=== PATIENT | male | born 1945 | race Caucasian/White ===

== ENCOUNTER 2017-04-21 15:38 | Inpatient (IN) | payer MEDICARE ==
[~2017-04-21] VITALS: Ht 175.3 cm; Wt 69.9 kg
[2017-04-21] VITALS (7 sets, daily range): BP systolic 119–156; BP diastolic 90–98
[~2017-04-21 15:38] MED LIST: AMIO200T2 PO; ASPI-482 PO; CARV6.252 PO; CITA10TA4 PO; FURO-68 PO; FURO40TA4 PO; LEVE500T6 PO; LISI-334 PO; LISI10TA2 PO; MULT1TAB52 PO; SIMV20TA3 PO; SIMV40TA3 PO
[2017-04-21] MEDS ORDERED: IV NORMAL SALINE 1000ML BAG 1,000 ML IV ONE (15:45)
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
[2017-04-21 16:00] LABS: BASO # 0.1 x10^3/uL (0.0-0.2); BASO % 1 % (0-3); EOS % 2 % (0-3); HEMATOCRIT 34.3 % (39.0-53.0); HEMOGLOBIN 11.8 g/dL (13.0-17.5); LYMPH # 1.4 x10^3/uL (1.0-4.8); LYMPH % 18 % (24-48); MEAN CORPUSCULAR HEMOGLOBIN 33 pg (25-35); MEAN CORPUSCULAR HGB CONC 35 g/dL (31-37); MEAN CORPUSCULAR VOLUME 96 fL (79-100); MONO % 7 % (0-9); NEUT % 72 % (31-73); PLATELET COUNT 201 x10^3/uL (140-400); RED BLOOD COUNT 3.56 x10^6/uL (4.30-5.70); RED CELL DISTRIBUTION WIDTH 12.5 % (11.5-14.5); WHITE BLOOD COUNT 7.6 x10^3/uL (4.0-11.0)
[2017-04-21 16:08] LABS: CALCIUM 9.8 mg/dL (8.5-10.1); CREATININE 1.2 mg/dL (0.7-1.3); POTASSIUM 5.2 mmol/L (3.5-5.1)
[2017-04-21 16:14] LABS: ALBUMIN 3.7 g/dL (3.4-5.0); ALBUMIN/GLOBULIN RATIO 0.9 (1.0-1.7); TOTAL BILIRUBIN 0.7 mg/dL (0.2-1.0); TOTAL PROTEIN 7.6 g/dL (6.4-8.2)
[2017-04-21 16:15] LABS: PROTHROMBIN TIME PATIENT 12.2 SEC (11.7-14.0)
[2017-04-21] MEDS ORDERED: IOHEXOL 300 MG/ML 75 ML VIAL IV ONE (16:15)
[2017-04-21] MEDS ORDERED: CONTRAST GIVEN MC PRN (16:30)
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
--- NOTE | 2017-04-21 16:51 | EKG ---
[facility] [address] [place] [address] Test Date: 2017-04-21 Test Time: 16:39:14 Pat Name: BARON GONZALEZ Department: Room: Gender: M Hypertrichologist: : 1945 Requested By: SKYLA SUE Order Number: [id number] Reading MD: Ovidio Sood Measurements Intervals Pease Rate: 61 P: 90 WV: 206 QRS: -55 QRSD: 88 T: 7 QT: 410 QTc: 418 Interpretive Statements SUSPECT ATRIAL PACED RHYTHM Electronically Signed On 04-22-2017 9:30:39 CDT by Ovidio Sood
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
[2017-04-21] MEDS ORDERED: MORPHINE SULFATE 4 MG/ML DISP.SYRIN. IV PRN (17:15)
[2017-04-21] MEDS ORDERED: ONDANSETRON PF 4 MG/2 ML VIAL. IV PRN (17:15)
[2017-04-21 17:24] LABS: BARBITURATES NEG (NEG); BENZODIAZEPINES NEG (NEG); CANNABINOIDS NEG (NEG); COCAINE NEG (NEG); METHADONE NEG (NEG); OPIATES NEG (NEG); PHENCYCLIDINE NEG (NEG)
[2017-04-21] MEDS ORDERED: IV NORMAL SALINE 1000ML BAG 1,000 ML IV SCH (17:30)
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
[2017-04-22] VITALS (12 sets, daily range): BP systolic 87–127; BP diastolic 59–93
--- NOTE | 2017-04-22 03:44 | ACF ---
Admission Forms Criteria SEIZURE ( Place 'X' for any and all applicable criteria): Admission is indicated for seizure and 1 or more of the following (1)(2)(3)(4)( 5)(6) [ ]I. Inpatient admission required rather than observation care (Also use Seizure: Observation Care Criteria as appropriate) because of 1 or more of the following: [ ]1) Altered mental status that is severe or persistent [ ]2) New focal neurologic deficit that is severe or persistent [ ]3) Metabolic disorder (eg, hypoglycemia, hyponatremia) that is severe or persistent [ ]4) Recurrent seizure [ ]5) Outpatient antiseizure regimen cannot be established (eg , patient cannot tolerate medication, initiation requires inpatient care) [ ]6) Need for ongoing intravenous infusion of anti-seizure medication [ ]7) Cerebral bleeding, hydrocephalus, or vasospasm monitoring [ ]8) Increased intracranial pressure or cerebral edema monitoring [ ]9) Other conditions, treatment or monitoring requiring inpatient admission [X]II. Status epilepticus [A] or repetitive seizures not controlled with emergent treatment (6)(8) [ ]III. Brain disorder (eg, tumor, edema, and hydrocephalus) that requiring monitoring or intervention available only at inpatient level of care. [ ]IV. Brain insult (eg, severe trauma, stroke, drug toxicity, or withdrawal) that requires monitoring or intervention available only at inpatient level of care (10)(11) [ ]V. Cardiac arrhythmias of immediate concern Extended stay beyond goal length of stay may be needed for (22) [ ]a) Complications of status epilepticus [ ]b) Refractory status epilepticus [ ]c) Etiology-specific therapy for conditions such as RESIDENTIAL PEST CONTROL TECHNICIAN infection, head injury,eclampsia, severe metabolic abnormalities, and brain tumor [ ]d) Residual neurologic damage, [ ]e) Initiation of significant change to anticonvulsant treatment [ ]f) Older patients (65 years or older) [ ]g) Patient requiring intubation (eg, to protect airway) The original [employer] content created by [employer] has been revised. The portions of the content which have been revised are identified through the use of italic text, and [email or web address] has neither reviewed nor approved the modified material. All other unmodified content is copyright [employer]. Please see references footnoted in the original [employer] edition 2015 Admission Criteria Met?: Yes WOLF WADE Apr 22, 2017 03:44
[2017-04-22 08:27] LABS: CALCIUM 8.7 mg/dL (8.5-10.1); CREATININE 1.1 mg/dL (0.7-1.3); GFR 66.4; POTASSIUM 3.9 mmol/L (3.5-5.1)
[2017-04-22 08:42] LABS: BASO % 0 % (0-3); EOS % 2 % (0-3); HEMOGLOBIN 10.1 g/dL (13.0-17.5); LYMPH # 1.2 x10^3/uL (1.0-4.8); LYMPH % 18 % (24-48); MEAN CORPUSCULAR HEMOGLOBIN 34 pg (25-35); MEAN CORPUSCULAR HGB CONC 35 g/dL (31-37); MEAN CORPUSCULAR VOLUME 97 fL (79-100); MONO % 10 % (0-9); NEUT % 70 % (31-73); PLATELET COUNT 167 x10^3/uL (140-400); RED BLOOD COUNT 2.99 x10^6/uL (4.30-5.70); RED CELL DISTRIBUTION WIDTH 12.6 % (11.5-14.5); WHITE BLOOD COUNT 6.6 x10^3/uL (4.0-11.0)
--- NOTE | 2017-04-22 12:35 | EEG ---
DATE OF SERVICE: 04/22/2017 EEG NUMBER: [id number] OBJECTIVE: This is a 71-year-old male patient with history of seizure. EEG was requested to evaluate seizure activity. METHODS: Twenty electrodes were applied according to the international 10-20 electrode placement system. EKG monitoring, hyperventilation, intermittent photic stimulation, monopolar and bipolar montages are routinely utilized. The record was obtained on a digital system with video monitoring. MEDICATIONS: Keppra. FINDINGS: 1. Background: The patient was recorded in the decreased response state. The overall background amplitude is 5-10 microvolts. No clear well-organized posterior dominant rhythm is observed. The overall background rhythm is with faster activity in beta frequency. Muscle artifact also noted. 2. Abnormalities: No specific epileptiform discharge or electrographic seizure is seen. Muscle artifact noted throughout the entire recording. 3. Activation: Hyperventilation was not performed because the patient was unable to follow the commands. Intermittent photic stimulation was performed with photic driving. No specific epileptiform discharge or electrographic seizure induced by intermittent photic driving. IMPRESSION: This EEG falls into the abnormal category of the study for the decreased response state. The faster activity in beta frequency is throughout the entire recording. Artifact also noted. No focal, lateralizing, specific epileptiform discharge or electrographic seizure is seen. PITO SUMNER MD DR: DENISSE/pat JOB#: [id number] / [id number] JAELYN
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
[2017-04-22 13:48] LABS: POTASSIUM ISTAT 5.1 mmol/L (3.5-5.0)
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
== END 2017-04-22 14:30 | disposition home or self-care (01) | DRG 101 ==
LOC: ER 15:38 → 1 WEST ICU 17:14
PROVIDERS: ADMIT Internal Medicine; ATTEND Internal Medicine
DX: G40.211 Localization-related (focal) (partial) symptomatic epilepsy and epileptic syndromes with complex partial seizures, intractable, with status epilepticus (principal); I42.9 Cardiomyopathy, unspecified; I10 Essential (primary) hypertension; E78.5 Hyperlipidemia, unspecified; E78.00 Pure hypercholesterolemia, unspecified; H51.8 Other specified disorders of binocular movement; I25.10 Atherosclerotic heart disease of native coronary artery without angina pectoris; Z90.49 Acquired absence of other specified parts of digestive tract; Z83.3 Family history of diabetes mellitus; Z95.0 Presence of cardiac pacemaker
CPT/HCPCS: 36415; 70450; 71010; 72125; 74177; 80047; 80048; 80053; 80307; 84484; 85025; 85610; 87641; 93005; 95816; 96361; 96365; 96375; 96376; G0480; J1953; J2060; J7030; 99291-25; G0479

== ENCOUNTER 2018-06-08 08:26 | Inpatient (IN) | payer MEDICARE ==
[2018-06-08] VITALS (24 sets, daily range): BP systolic 90–127; BP diastolic 50–86
[~2018-06-08] VITALS: Ht 175.3 cm; Wt 71.3 kg
[~2018-06-08 08:26] MED LIST changes: -AMIO200T2 PO; +AMIO200T4 PO; +ATOR20TA58 PO; +DONE10TA61 PO; +SERT25TA PO; +SPIR25TA5 PO
[2018-06-08] MEDS ORDERED: IV NORMAL SALINE 1000ML BAG 1,000 ML IV ONE ×2 (08:45)
[2018-06-08] MEDS ORDERED: PROPOFOL 10 MG/ML (20ML) VIAL. IV ONE (08:45)
[2018-06-08] MEDS ORDERED: SUCCINYLCHOLINE 200 MG/10 ML VIAL. IV ONE (08:45)
[2018-06-08] MEDS ORDERED: ETOMIDATE 20 MG/10 ML VIAL. IV ONE (08:45)
[2018-06-08] MEDS ORDERED: PROPOFOL 50 ML IV ONE (08:49)
[2018-06-08 08:59] LABS: BASO % 1 % (0-3); EOS # 0.1 x10^3/uL (0.0-0.7); EOS % 1 % (0-3); HEMATOCRIT 42.2 % (39.0-53.0); HEMOGLOBIN 14.6 g/dL (13.0-17.5); LYMPH # 1.4 x10^3/uL (1.0-4.8); LYMPH % 17 % (24-48); MEAN CORPUSCULAR HEMOGLOBIN 34 pg (25-35); MEAN CORPUSCULAR HGB CONC 35 g/dL (31-37); MEAN CORPUSCULAR VOLUME 98 fL (79-100); MONO # 0.5 x10^3/uL (0.0-1.1); MONO % 7 % (0-9); NEUT % 75 % (31-73); PLATELET COUNT 251 x10^3/uL (140-400); RED CELL DISTRIBUTION WIDTH 13.4 % (11.5-14.5)
[2018-06-08] MEDS ORDERED: MIDAZOLAM HCL/PF 5 MG/5 ML VIAL. IV ONE (09:00)
[2018-06-08 09:01] LABS: BILIRUBIN,URINE NEGATIVE (NEG); CLARITY,URINE CLOUDY; COLOR,URINE YELLOW; NITRITE,URINE NEGATIVE (NEG); PROTEIN,URINE 100 mg/dL (NEG-TRACE)
[2018-06-08 09:07] LABS: PROTHROMBIN TIME PATIENT 13.3 SEC (11.7-14.0)
[2018-06-08 09:11] LABS: BACTERIA,URINE 0 /HPF (0-FEW); RBC,URINE 0 /HPF (0-2); WBC,URINE 0 /HPF (0-4)
--- NOTE | 2018-06-08 09:16 | RAD ---
EXAM: Chest, single view. HISTORY: Intubation COMPARISON: 04/21/2017 FINDINGS: A frontal view of the chest is obtained. There is an endotracheal tube within the mid trachea. There is a nasogastric tube within the stomach. There is a cardiac pacemaker with leads in expected position. There is no pneumothorax or pleural effusion. The heart is normal in size. There is focal opacity overlying the right upper lobe likely due to overlying osseous and pulmonary vascular shadows. IMPRESSION: 1. Support lines and tubes in expected position, described above. 2. No acute pulmonary finding. Electronically signed by: Tiana Ibrahim MD (06/08/2018 9:14 AM) [place] [id number]
[2018-06-08 09:21] LABS: BASE EXCESS ABG -6 mmol/L (-3-3); HCO3 ABG 19 mmol/L (21-28); PCO2 ABG 37 mmHg (35-46); PO2 ABG 418 mmHg (65-108); SAT O2 ABG 99 % (92-99)
[2018-06-08 09:24] LABS: GFR 33.2; POTASSIUM 4.5 mmol/L (3.5-5.1)
[2018-06-08 09:25] LABS: FIO2 ABG 80
[2018-06-08 09:28] LABS: AMPHETAMINE/METHAMPHETAMINE NEG (NEG); BARBITURATES NEG (NEG); BENZODIAZEPINES NEG (NEG); CANNABINOIDS NEG (NEG); COCAINE NEG (NEG); METHADONE NEG (NEG); OPIATES NEG (NEG); PHENCYCLIDINE NEG (NEG)
[2018-06-08] MEDS ORDERED: NORMAL SALINE IV ONE (09:30)
[2018-06-08] MEDS ORDERED: FOSPHENYTOIN IV ONE (09:30)
[2018-06-08 09:32] LABS: ALBUMIN 3.9 g/dL (3.4-5.0); ALBUMIN/GLOBULIN RATIO 0.9 (1.0-1.7); TOTAL BILIRUBIN 1.1 mg/dL (0.2-1.0); TOTAL PROTEIN 8.1 g/dL (6.4-8.2)
--- NOTE | 2018-06-08 09:41 | EKG ---
[facility] [address] [place] [address] Test Date: 2018-06-08 Test Time: 09:12:15 Pat Name: BARON GONZALEZ Department: Room: Gender: M Customer Engineer: : [id number] Requested By: AYLIN CHRISTINA Order Number: [id number] Reading MD: Ovidio Sood MD Measurements Intervals [place] Rate: 87 P: 67 MD: 182 QRS: -57 QRSD: 104 T: -156 QT: 416 QTc: 501 Interpretive Statements PROBABLE SR LVH PAC'S BASELINE ARTIFACT Electronically Signed On 06-08-2018 15:25:00 CDT by Ovidio Sood MD
--- NOTE | 2018-06-08 09:59 | RAD ---
EXAM: Head CT without contrast. HISTORY: Seizure. Altered mental status. TECHNIQUE: Computed tomographic images of the head were obtained without contrast. *One or more of the following individualized dose reduction techniques were utilized for this examination: 1. Automated exposure control. 2. Adjustment of the mA and/or kV according to patient size. 3. Use of iterative reconstruction technique. COMPARISON: 01/23/2018 and 10/08/2015. FINDINGS: There is no acute or subacute extra-axial or intraparenchymal hemorrhage. There is a stable 9 mm focus of hyperdensity within the right aspect of the chata. The long-term stability favors parenchymal calcification rather than hemorrhage. There is no mass effect or midline shift. There is no hydrocephalus. There are areas of decreased attenuation within the cerebral white matter, nonspecific and likely related to chronic small vessel disease. There is cerebral atrophy with increased bifrontal extra-axial space. The orbits are unremarkable. There is ethmoid sinus mucosal thickening. There is edema within the posterior nasopharyngeal soft tissues likely due to recent intubation or nasogastric tube placement. There is no fracture. IMPRESSION: 1. No acute intracranial finding. Note is made that MRI is more sensitive for acute infarction. 2. Scattered areas of hypodensity within the cerebral white matter, likely due to chronic small vessel disease. 3. Cerebral atrophy. 4. Stable 9 mm focus of hyperdensity along the right aspect of the chata. The greater than two-year course of stability favors a chronic etiology calcification. There may be underlying capillary telangiectasia or alternative vascular etiology. Electronically signed by: Tiana Ibrahim MD (06/08/2018 9:56 AM) [id number]
[2018-06-08] MEDS ORDERED: NOREPINEPHRIN 8MG/250ML PREMIX 250 ML IV ONE (10:11)
[2018-06-08] MEDS: NOREPINEPHRIN 8MG/250ML PREMIX 250 ML IV PRN (10:11)
[2018-06-08] MEDS ORDERED: ASPIRIN 300 MG SUPP.RECT PR STA (10:14)
[2018-06-08] MEDS ORDERED: LISI10TA2 PO (10:21)
[2018-06-08] MEDS ORDERED: VITA150T PO (10:21)
[2018-06-08] MEDS ORDERED: PIPERACILLIN/TAZOBACTAM 3.375 GM in IV NORMAL SALINE 50ML 50 ML IV ONE (10:30)
--- NOTE | 2018-06-08 10:36 | PHYS DOC ---
Past Medical History Past Medical History: CHF, Dementia, Depression, High Cholesterol, Heart Disease, Hypertension, Seizure Additional Past Medical Histor: epilepsy, cardiomyopathy, PM Past Surgical History: Cholecystectomy, Pacemaker Alcohol Use: Occasionally Drug Use: None Adult General Chief Complaint Chief Complaint: ALTERED MENTAL STATUS HPI HPI Patient is a 72 year old male who presents with seizure. Brought in by ambulance history limited by the patient's acuity. Probably he was found this morning having a seizure by his nephew gives him his medications every day. Last was seen at 4 PM last night tonic-clonic activity was witnessed patient was diaphoretic and having difficulty controlling his secretions Review of Systems Review of Systems Limited by acuity of condition Current Medications Current Medications Current Medications Medications (Trade) Dose Ordered Sig/Mariah Start Time Stop Time Status Last Admin Dose Admin Etomidate (Amidate) 20 mg 1X ONCE 06/08/18 08:45 06/08/18 08:47 DC Fosphenytoin Sodium 1400 mg/ Sodium Chloride 78 ml @ 312 mls/hr 1X ONCE 06/08/18 09:30 06/08/18 09:44 DC 06/08/18 09:46 312 MLS/HR Levetiracetam 1000 mg/Sodium Chloride 110 ml @ 440 mls/hr 1X ONCE 06/08/18 08:45 06/08/18 08:59 DC 06/08/18 09:03 440 MLS/HR Midazolam HCl (Versed) 4 mg 1X ONCE 06/08/18 09:00 06/08/18 09:03 DC 06/08/18 09:13 4 MG Propofol 50 ml @ As Directed STK-MED ONCE 06/08/18 08:49 06/08/18 08:50 DC Propofol (Diprivan) 200 mg 1X ONCE 06/08/18 08:45 06/08/18 08:47 DC 06/08/18 08:52 200 MG Sodium Chloride 1,000 ml @ 1,000 mls/hr 1X ONCE 06/08/18 08:45 06/08/18 09:44 DC 06/08/18 09:03 1,000 MLS/HR Succinylcholine Chloride (Anectine) 100 mg 1X ONCE 06/08/18 08:45 06/08/18 08:47 DC Allergies Allergies Allergies Coded Allergies Type Severity Reaction Last Updated Verified No Known Drug Allergies 08/28/14 No Physical Exam Physical Exam Constitutional: Ill-appearing actively seizing right gaze deviation tonic- clonic activity greater on the right upper extremity but present throughout HENT: Normocephalic, atraumatic, bilateral external ears normal, oropharynx moist, no oral exudates, nose normal. [] Eyes: pupils 2 mm, right gaze deviation Neck: Normal range of motion, no tenderness, supple, no stridor. [] Cardiovascular:Heart rate regular rhythm, no obvious murmurs identified but was limited by his respiratory status pacemaker present Lungs & Thorax: Patient has coarse respirations coarse breath sounds as well as difficulty controlling his secretions tachypnea Abdominal breathing Abdomen: Bowel sounds normal, soft, no tenderness, no masses, no pulsatile masses. [] Skin: diaphoretic, warm. Back: No tenderness, no CVA tenderness. [] Neurologic: actively seizing right gaze deviation. tonic clonic activity b/l most prominent right arm. Psychologic: un to assess Current Patient Data Vital Signs Vital Signs Date Time Temp Pulse Resp B/P (MAP) Pulse Ox O2 Delivery O2 Flow Rate FiO2 06/08/18 08:45 100 Ventilator 06/08/18 08:29 99.7 117 20 136/94 (108) 99.7 Lab Values Laboratory Tests Test 06/08/18 08:33 06/08/18 08:43 06/08/18 08:47 White Blood Count 8.0 x10^3/uL (4.0-11.0) Red Blood Count 4.30 x10^6/uL (4.30-5.70) Hemoglobin 14.6 g/dL (13.0-17.5) Hematocrit 42.2 % (39.0-53.0) Mean Corpuscular Volume 98 fL (79-100) Mean Corpuscular Hemoglobin 34 pg (25-35) Mean Corpuscular Hemoglobin Concent 35 g/dL (31-37) Red Cell Distribution Width 13.4 % (11.5-14.5) Platelet Count 251 x10^3/uL (140-400) Neutrophils (%) (Auto) 75 % (31-73) H Lymphocytes (%) (Auto) 17 % (24-48) L Monocytes (%) (Auto) 7 % (0-9) Eosinophils (%) (Auto) 1 % (0-3) Basophils (%) (Auto) 1 % (0-3) Neutrophils # (Auto) 6.0 x10^3uL (1.8-7.7) Lymphocytes # (Auto) 1.4 x10^3/uL (1.0-4.8) Monocytes # (Auto) 0.5 x10^3/uL (0.0-1.1) Eosinophils # (Auto) 0.1 x10^3/uL (0.0-0.7) Basophils # (Auto) 0.0 x10^3/uL (0.0-0.2) Prothrombin Time 13.3 SEC (11.7-14.0) Prothrombin Time INR 1.1 (0.8-1.1) Sodium Level 134 mmol/L (136-145) L Potassium Level 4.5 mmol/L (3.5-5.1) Chloride Level 96 mmol/L (98-107) L Carbon Dioxide Level 17 mmol/L (21-32) L Anion Gap 21 (6-14) H Blood Urea Nitrogen 23 mg/dL (8-26) Creatinine 2.0 mg/dL (0.7-1.3) H Estimated GFR (Cockcroft-Gault) 33.2 BUN/Creatinine Ratio 12 (6-20) Glucose Level 203 mg/dL (70-99) H Lactic Acid Level 13.1 mmol/L (0.4-2.0) *H Calcium Level 10.0 mg/dL (8.5-10.1) Total Bilirubin 1.1 mg/dL (0.2-1.0) H Aspartate Amino Transferase (AST) 50 U/L (15-37) H Alanine Aminotransferase (ALT) 59 U/L (16-63) Alkaline Phosphatase 90 U/L (46-116) Creatine Kinase 299 U/L (39-308) Troponin I Quantitative 0.350 ng/mL (0.000-0.055) Total Protein 8.1 g/dL (6.4-8.2) Albumin 3.9 g/dL (3.4-5.0) Albumin/Globulin Ratio 0.9 (1.0-1.7) L Procalcitonin 0.17 ng/mL (0.00-0.10) H Ethyl Alcohol Level < 10 mg/dL (0-10) O2 Saturation 99 % (92-99) Arterial Blood pH 7.34 (7.35-7.45) L Arterial Blood pCO2 at Patient Temp 37 mmHg (35-46) Arterial Blood pO2 at Patient Temp 418 mmHg (65-108) H Arterial Blood HCO3 19 mmol/L (21-28) L Arterial Blood Base Excess -6 mmol/L (-3-3) L FiO2 80 Urine Collection Type U cath Urine Color Yellow Urine Clarity Cloudy Urine pH 6.0 Urine Specific Nunnelly 1.015 Urine Protein 100 mg/dL (NEG-TRACE) Urine Glucose (UA) Negative mg/dL (NEG) Urine Ketones (Stick) Negative mg/dL (NEG) Urine Blood Negative (NEG) Urine Nitrite Negative (NEG) Urine Bilirubin Negative (NEG) Urine Urobilinogen Dipstick 1.0 mg/dL (0.2 mg/dL) Urine Leukocyte Esterase Negative (NEG) Urine RBC 0 /HPF (0-2) Urine WBC 0 /HPF (0-4) Urine Squamous Epithelial Cells None /LPF Urine Bacteria 0 /HPF (0-FEW) Urine Mucus Slight /LPF Urine Opiates Screen Neg (NEG) Urine Methadone Screen Neg (NEG) Urine Barbiturates Neg (NEG) Urine Phencyclidine Screen Neg (NEG) Urine Amphetamine/Methamphetamine Neg (NEG) Urine Benzodiazepines Screen Neg (NEG) Urine Cocaine Screen Neg (NEG) Urine Cannabinoids Screen Neg (NEG) Urine Ethyl Alcohol Neg (NEG) Laboratory Tests 06/08/18 08:33 Laboratory Tests 06/08/18 08:33 EKG EKG [] Interpretation Time: EKG shows a normal sinus rhythm with a rate of 87. It is probably sinus but the baseline is very difficult to interpret could be A. fib as well. There are T wave inversions laterally with an LVH pattern as well as poor R- wave progression anteriorly Radiology/Procedures Radiology/Procedures [] Impressions: bation or nasogastric tube placement. There is no fracture. IMPRESSION: 1. No acute intracranial finding. Note is made that MRI is more sensitive for acute infarction. 2. Scattered areas of hypodensity within the cerebral white matter, likely due to chronic small vessel disease. 3. Cerebral atrophy. 4. Stable 9 mm focus of hyperdensity along the right aspect of the chata. The greater than two-year course of stability favors a chronic etiology calcification. There may be underlying capillary telangiectasia or alternative vascular etiology. Electronically signed by: Tiana Ibrahim MD (06/08/2018 9:56 AM) [place] [id number] IMPRESSION: 1. Support lines and tubes in expected position, described above. 2. No acute pulmonary finding. Electronically signed by: Tiana Ibrahim MD (06/08/2018 9:14 AM) [place] [id number] DICTATED and SIGNED BY: TIANA IBRAHIM MD DATE: 06/08/18911 Course & Med Decision Making Course & Med Decision Making Critical care time was 50 minutes exclusive of procedures. For management of status epilepticus requiring frequent monitoring reevaluation review discussion with consultants discussion with family bedside care. ABG interpretation showed a normal pH basically with a PCO2 of 36 his oxygenation will be downgraded on the ventilator due to the PaO2 of 418 In summary this is a 9-year-old male with a known history of congestive heart failure with a low EF as well as seizure disorder who is on Keppra apparently has frequent visits mainly at for seizures brought in by ambulance with status epilepticus. Paramedics gave 10 of Versed intranasally with no effect patient was actively seizing diaphoretic and difficulty maintaining his own airway on arrival. He was intubated emergently by me intubation note: Emergent consent Jeevan 4 grade 1 view secretions and airway were noted etomidate and succinylcholine were used for medication. 2 confirmed by end-tidal CO2 as well as bilateral breath sounds and x-ray. Stat head CT was done to rule out bleed this was negative. Patient was given IV Versed as well as the propofol drip as well as a gram of Keppra. After all of this he appeared to still have some seizure activity so I added a dose for fosphenytoin. Reevaluation at 10:15 AM patient was supposed to be transferred to the ICU with a blood pressure did drop down into the 50s to 60s I suspect this is mostly a sedation affect is before the sedation his blood pressure was normal in the 110- 120 range. We did wean down the propofol and added some Levophed temporarily as of this chart his blood pressures up into the 80s systolic. I think is okay to go to the ICU. I don't think that the lactic acidosis from sepsis. I think it is from the seizure. There was no fever there is no white count the chest x-ray and urinalysis were negative. I do not see an obvious source of sepsis nevertheless we did give 1 dose of IV Zosyn just in case. i ordered repeat lactic. i dont think he needs a central line right now as hoepfully the hypotension will be transient. 2 liters iv fluids given in er. d/w drew admit d/w manjit as well neuro consutl. d/w son who is karina greement with plan. additionally found out that patient was only taking 3 not 4 tablets of keppra a day. Pertinent Labs and Imaging studies reviewed. (See chart for details) [] Dragon Disclaimer Dragon Disclaimer This electronic medical record was generated, in whole or in part, using a voice recognition dictation system. Departure Departure Impression: Primary Impression: Epilepsy with status epilepticus Disposition: ADMITTED INPATIENT Admitting Physician: Xie. Leal Condition: CRITICAL Referrals: UNKNOWN PCP NAME (PCP) AYLIN CHRISTINA MD Jun 08, 2018 10:36
--- NOTE | 2018-06-08 12:34 | CONS ---
DATE OF CONSULTATION: 06/08/2018 ATTENDING PHYSICIAN: Dr. Ca. REASON FOR CONSULTATION: Respiratory failure. HISTORY OF PRESENT ILLNESS: The patient is a 72-year-old male who has history of severe cardiomyopathy with last EF of 15%, history of dementia, depression, seizure disorder. He was brought in to the hospital after he was found this morning having seizures by his nephew and was less responsive. His nephew gives him the medications every day. He was last seen at 4:00 p.m. last night. Tonic-clonic activity was witnessed. He was diaphoretic and had difficulty controlling his secretions. He was intubated for airway protection by the ER staff. I have been asked to see him for further evaluation. He has not had any seizures since being in the hospital. His chest x-ray showed no definite consolidation or CHF. Endotracheal tube is in satisfactory position. Arterial blood gases had a pH of 7.34, pCO2 of 37, pO2 of 418, bicarbonate was 19. His lactic acid was markedly elevated related to seizures. I have been asked to see him for further evaluation. Currently, he is on assist control mode and FiO2 is down to 40%. The rate is set at 16, tidal volume 500. PAST MEDICAL HISTORY: History of severe cardiomyopathy with an EF of 15%, history of dementia, depression, dyslipidemia, heart disease, hypertension, seizures. PAST SURGICAL HISTORY: Cholecystectomy and pacemaker. SOCIAL HISTORY: Occasional alcohol use. ALLERGIES: None. CURRENT MEDICATIONS: Reviewed as listed in the MRAD including medicines given in the ER. REVIEW OF SYSTEMS: Unable to obtain from the patient. PHYSICAL EXAMINATION: GENERAL: He is intubated, mildly sedated with propofol. VITAL SIGNS: Blood pressure is stable. Pulse ox 100%. HEENT: Sclerae nonicteric. Pupils do react bilaterally. NECK: Supple. LUNGS: Clear. CARDIOVASCULAR: Regular rate. ABDOMEN: Soft. EXTREMITIES: With no pitting edema. LABORATORY DATA: Reviewed. ABGs are discussed in my history of present illness. Urine drug screen was negative. Chemistries with a BUN of 23 and a creatinine of 2.0, and lactic acid is 13.1. Albumin is 3.9. Procalcitonin is 0.17. White cell count 8.0, hemoglobin 14.6 and platelets are 251. IMPRESSION: 1. Acute respiratory failure secondary to acute encephalopathy and seizure disorder. 2. The patient with seizure disorder, not sure whether he was taking his medication regularly, but had now recurrent tonic-clonic seizure. 3. History of severe cardiomyopathy with an ejection fraction of 15%. Chest x-ray not in congestive heart failure. 4. Clinically less likely pneumonia. Does not need to continue antibiotics at present from a pulmonary standpoint. RECOMMENDATION: 1. Continue with present assist control mode and make necessary adjustments based on ABGs. 2. Follow Neurology recommendations. 3. Once he is seizure free in the next 24 hours, we will discontinue sedation and assess his mental status. He may be postictal at present. 4. Lactic acidosis related to seizures and will be repeated. 5. Bronchodilators. 6. DVT prophylaxis. 7. Stress ulcer prophylaxis. 8. Anti-seizure medications per Neurology. 9. Discussed with RN and RT and will follow along with you. Critical care time 37 minutes. ANANT DANG MD DR: KIT/pat JOB#: [id number] / [id number]
[2018-06-08] MEDS ORDERED: ENOXAPARIN 40 MG/0.4 ML SYRINGE. SQ SCH (13:00)
[2018-06-08] MEDS: PROPOFOL 100 ML IV PRN (15:27)
[2018-06-08] MEDS ORDERED: PIP/TAZO PER PHARMACY MC PRN (15:30)
--- NOTE | 2018-06-08 15:36 | PDOC1 ---
History and Physical Date of Admission Date of Admission 06/08/18 Identification/Chief Complaint Chief Complaint seizure Source Source: Chart review History of Present Illness History of Present Illness HPI HPI Patient is a 72 year old male who presents with seizure. pt seen in ICU, intubated, all history got from ICU nurse and ERP. as per ERP, daycare manager saw him ok last night, pt has dementia, not sure about his baseline but lives independently. telephone solicitor found him seizuring today, unresponsive and called EMS. pt takes meds daily. He was dced here 4 months ago for seizure, takes keppra for now. as per ERP, last night tonic-clonic activity was witnessed patient was diaphoretic and having difficulty controlling his secretions. pt was found cont seizuring in ER, with foaming secretions and got intubation. LA 13, bp low with propofol, on levaphed 8mcg now. Past Medical History Cardiovascular: HTN, Hyperlipidemia Pulmonary: No pertinent hx CENTRAL NERVOUS SYSTEM: Seizure GI: No pertinent hx Heme/Onc: No pertinent hx Hepatobiliary: No pertinent hx Psych: No pertinent hx Rheumatologic: No pertinent hx Infectious disease: No pertinent hx Renal/: No pertinent hx Endocrine: No pertinent hx Past Surgical History Past Surgical History: Appendectomy Family History Family History: Family History Unknown Social History Smoke: No ALCOHOL: none Drugs: None Current Medications Current Medications Current Medications Medications (Trade) Dose Ordered Sig/Mariah Start Time Stop Time Status Last Admin Dose Admin Albuterol/ Ipratropium (Duoneb) 3 ml RTQID 06/08/18 12:30 Aspirin (Aspirin) 300 mg 1X STAT 06/08/18 10:14 06/08/18 10:17 DC 06/08/18 10:36 300 MG Enoxaparin Sodium (Lovenox 40mg Syringe) 40 mg Q24H 06/08/18 13:00 Etomidate (Amidate) 20 mg 1X ONCE 06/08/18 08:45 06/08/18 08:47 DC 06/08/18 08:37 20 MG Famotidine (Pepcid) 20 mg QHS 06/08/18 21:00 Fentanyl Citrate (Fentanyl 2ml Vial) 25 mcg PRN Q1HR PRN 06/08/18 15:30 UNV Fosphenytoin Sodium 1400 mg/ Sodium Chloride 78 ml @ 312 mls/hr 1X ONCE 06/08/18 09:30 06/08/18 09:44 DC 06/08/18 09:46 312 MLS/HR Levetiracetam 1000 mg/Dextrose 110 ml @ 440 mls/hr BID 06/08/18 21:00 Levetiracetam 1000 mg/Sodium Chloride 110 ml @ 440 mls/hr 1X ONCE 06/08/18 08:45 06/08/18 08:59 DC 06/08/18 09:03 440 MLS/HR Midazolam HCl (Versed) 4 mg 1X ONCE 06/08/18 09:00 06/08/18 09:03 DC 06/08/18 09:13 4 MG Norepinephrine Bitartrate 250 ml @ 1.875 mls/ hr CONT PRN 06/08/18 10:30 06/08/18 10:11 9.38 MLS/HR Piperacillin Sod/ Tazobactam Sod 3.375 gm/Sodium Chloride 50 ml @ 100 mls/hr 1X ONCE 06/08/18 10:30 06/08/18 10:59 DC 06/08/18 11:17 100 MLS/HR Propofol 100 ml @ 0 mls/hr CONT PRN 06/08/18 15:30 UNV Propofol (Diprivan) 200 mg 1X ONCE 06/08/18 08:45 06/08/18 08:47 DC 06/08/18 08:52 200 MG Sodium Chloride 1,000 ml @ 1,000 mls/hr 1X ONCE 06/08/18 08:45 06/08/18 09:44 DC 06/08/18 09:03 1,000 MLS/HR Succinylcholine Chloride (Anectine) 100 mg 1X ONCE 06/08/18 08:45 06/08/18 08:47 DC 06/08/18 08:38 100 MG Allergies Allergies Allergies Coded Allergies Type Severity Reaction Last Updated Verified No Known Drug Allergies 08/28/14 No ROS Review of System CONSTITUTIONAL: No fever or chills EYES: No recent changes SKIN: No rash or itching CARDIOVASCULAR: No chest pain, syncope, palpitations, or edema RESPIRATORY: No SOB or cough GASTROINTESTINAL: No nausea, vomiting or abdominal pain NEUROLOGICAL: No headaches or weakness ENDOCRINE: No cold or heat intolerance GENITOURINARY: No urgency or frequency of urination MUSCULOSKELETAL: No back pain or joint pain LYMPHATICS: No enlarged lymph nodes PSYCHIATRIC: No anxiety or depression Physical Exam Physical Exam GEN.: INtubated ,sedated HEENT: Head is normocephalic, atraumatic NECK: Supple. LUNGS: Clear to auscultation. HEART: RRR, S1, S2 present. Peripheral pulses intact ABDOMEN: Soft, nontender. Positive bowel sounds. EXTREMITIES: Without any cyanosis. SKIN: No ulcerations Vitals Vitals Vital Signs Date Time Temp Pulse Resp B/P (MAP) Pulse Ox O2 Delivery O2 Flow Rate FiO2 06/08/18 13:30 100 Ventilator 06/08/18 10:40 70 16 06/08/18 08:29 99.7 136/94 (108) 99.7 Labs Labs Laboratory Tests Test 06/08/18 08:33 06/08/18 08:43 06/08/18 08:47 06/08/18 12:10 White Blood Count 8.0 x10^3/uL (4.0-11.0) Red Blood Count 4.30 x10^6/uL (4.30-5.70) Hemoglobin 14.6 g/dL (13.0-17.5) Hematocrit 42.2 % (39.0-53.0) Mean Corpuscular Volume 98 fL (79-100) Mean Corpuscular Hemoglobin 34 pg (25-35) Mean Corpuscular Hemoglobin Concent 35 g/dL (31-37) Red Cell Distribution Width 13.4 % (11.5-14.5) Platelet Count 251 x10^3/uL (140-400) Neutrophils (%) (Auto) 75 % (31-73) Lymphocytes (%) (Auto) 17 % (24-48) Monocytes (%) (Auto) 7 % (0-9) Eosinophils (%) (Auto) 1 % (0-3) Basophils (%) (Auto) 1 % (0-3) Neutrophils # (Auto) 6.0 x10^3uL (1.8-7.7) Lymphocytes # (Auto) 1.4 x10^3/uL (1.0-4.8) Monocytes # (Auto) 0.5 x10^3/uL (0.0-1.1) Eosinophils # (Auto) 0.1 x10^3/uL (0.0-0.7) Basophils # (Auto) 0.0 x10^3/uL (0.0-0.2) Prothrombin Time 13.3 SEC (11.7-14.0) Prothromb Time International Ratio 1.1 (0.8-1.1) Sodium Level 134 mmol/L (136-145) Potassium Level 4.5 mmol/L (3.5-5.1) Chloride Level 96 mmol/L (98-107) Carbon Dioxide Level 17 mmol/L (21-32) Anion Gap 21 (6-14) Blood Urea Nitrogen 23 mg/dL (8-26) Creatinine 2.0 mg/dL (0.7-1.3) Estimated GFR (Cockcroft-Gault) 33.2 BUN/Creatinine Ratio 12 (6-20) Glucose Level 203 mg/dL (70-99) Lactic Acid Level 13.1 mmol/L (0.4-2.0) 3.4 mmol/L (0.4-2.0) Calcium Level 10.0 mg/dL (8.5-10.1) Total Bilirubin 1.1 mg/dL (0.2-1.0) Aspartate Amino Transf (AST/SGOT) 50 U/L (15-37) Alanine Aminotransferase (ALT/SGPT) 59 U/L (16-63) Alkaline Phosphatase 90 U/L (46-116) Creatine Kinase 299 U/L (39-308) Troponin I Quantitative 0.350 ng/mL (0.000-0.055) Total Protein 8.1 g/dL (6.4-8.2) Albumin 3.9 g/dL (3.4-5.0) Albumin/Globulin Ratio 0.9 (1.0-1.7) Procalcitonin 0.17 ng/mL (0.00-0.10) Thyroid Stimulating Hormone (TSH) 4.422 uIU/mL (0.358-3.74) Ethyl Alcohol Level < 10 mg/dL (0-10) O2 Saturation 99 % (92-99) Arterial Blood pH 7.34 (7.35-7.45) Arterial Blood pCO2 at Patient Temp 37 mmHg (35-46) Arterial Blood pO2 at Patient Temp 418 mmHg (65-108) Arterial Blood HCO3 19 mmol/L (21-28) Arterial Blood Base Excess -6 mmol/L (-3-3) FiO2 80 Urine Collection Type U cath Urine Color Yellow Urine Clarity Cloudy Urine pH 6.0 Urine Specific [place] 1.015 Urine Protein 100 mg/dL (NEG-TRACE) Urine Glucose (UA) Negative mg/dL (NEG) Urine Ketones (Stick) Negative mg/dL (NEG) Urine Blood Negative (NEG) Urine Nitrite Negative (NEG) Urine Bilirubin Negative (NEG) Urine Urobilinogen Dipstick 1.0 mg/dL (0.2 mg/dL) Urine Leukocyte Esterase Negative (NEG) Urine RBC 0 /HPF (0-2) Urine WBC 0 /HPF (0-4) Urine Squamous Epithelial Cells None /LPF Urine Bacteria 0 /HPF (0-FEW) Urine Mucus Slight /LPF Urine Opiates Screen Neg (NEG) Urine Methadone Screen Neg (NEG) Urine Barbiturates Neg (NEG) Urine Phencyclidine Screen Neg (NEG) Urine Amphetamine/Methamphetamine Neg (NEG) Urine Benzodiazepines Screen Neg (NEG) Urine Cocaine Screen Neg (NEG) Urine Cannabinoids Screen Neg (NEG) Urine Ethyl Alcohol Neg (NEG) Laboratory Tests Test 06/08/18 08:33 06/08/18 08:43 06/08/18 08:47 06/08/18 12:10 White Blood Count 8.0 x10^3/uL (4.0-11.0) Red Blood Count 4.30 x10^6/uL (4.30-5.70) Hemoglobin 14.6 g/dL (13.0-17.5) Hematocrit 42.2 % (39.0-53.0) Mean Corpuscular Volume 98 fL (79-100) Mean Corpuscular Hemoglobin 34 pg (25-35) Mean Corpuscular Hemoglobin Concent 35 g/dL (31-37) Red Cell Distribution Width 13.4 % (11.5-14.5) Platelet Count 251 x10^3/uL (140-400) Neutrophils (%) (Auto) 75 % (31-73) Lymphocytes (%) (Auto) 17 % (24-48) Monocytes (%) (Auto) 7 % (0-9) Eosinophils (%) (Auto) 1 % (0-3) Basophils (%) (Auto) 1 % (0-3) Neutrophils # (Auto) 6.0 x10^3uL (1.8-7.7) Lymphocytes # (Auto) 1.4 x10^3/uL (1.0-4.8) Monocytes # (Auto) 0.5 x10^3/uL (0.0-1.1) Eosinophils # (Auto) 0.1 x10^3/uL (0.0-0.7) Basophils # (Auto) 0.0 x10^3/uL (0.0-0.2) Prothrombin Time 13.3 SEC (11.7-14.0) Prothromb Time International Ratio 1.1 (0.8-1.1) Sodium Level 134 mmol/L (136-145) Potassium Level 4.5 mmol/L (3.5-5.1) Chloride Level 96 mmol/L (98-107) Carbon Dioxide Level 17 mmol/L (21-32) Anion Gap 21 (6-14) Blood Urea Nitrogen 23 mg/dL (8-26) Creatinine 2.0 mg/dL (0.7-1.3) Estimated GFR (Cockcroft-Gault) 33.2 BUN/Creatinine Ratio 12 (6-20) Glucose Level 203 mg/dL (70-99) Lactic Acid Level 13.1 mmol/L (0.4-2.0) 3.4 mmol/L (0.4-2.0) Calcium Level 10.0 mg/dL (8.5-10.1) Total Bilirubin 1.1 mg/dL (0.2-1.0) Aspartate Amino Transf (AST/SGOT) 50 U/L (15-37) Alanine Aminotransferase (ALT/SGPT) 59 U/L (16-63) Alkaline Phosphatase 90 U/L (46-116) Creatine Kinase 299 U/L (39-308) Troponin I Quantitative 0.350 ng/mL (0.000-0.055) Total Protein 8.1 g/dL (6.4-8.2) Albumin 3.9 g/dL (3.4-5.0) Albumin/Globulin Ratio 0.9 (1.0-1.7) Procalcitonin 0.17 ng/mL (0.00-0.10) Thyroid Stimulating Hormone (TSH) 4.422 uIU/mL (0.358-3.74) Ethyl Alcohol Level < 10 mg/dL (0-10) O2 Saturation 99 % (92-99) Arterial Blood pH 7.34 (7.35-7.45) Arterial Blood pCO2 at Patient Temp 37 mmHg (35-46) Arterial Blood pO2 at Patient Temp 418 mmHg (65-108) Arterial Blood HCO3 19 mmol/L (21-28) Arterial Blood Base Excess -6 mmol/L (-3-3) FiO2 80 Urine Collection Type U cath Urine Color Yellow Urine Clarity Cloudy Urine pH 6.0 Urine Specific [place] 1.015 Urine Protein 100 mg/dL (NEG-TRACE) Urine Glucose (UA) Negative mg/dL (NEG) Urine Ketones (Stick) Negative mg/dL (NEG) Urine Blood Negative (NEG) Urine Nitrite Negative (NEG) Urine Bilirubin Negative (NEG) Urine Urobilinogen Dipstick 1.0 mg/dL (0.2 mg/dL) Urine Leukocyte Esterase Negative (NEG) Urine RBC 0 /HPF (0-2) Urine WBC 0 /HPF (0-4) Urine Squamous Epithelial Cells None /LPF Urine Bacteria 0 /HPF (0-FEW) Urine Mucus Slight /LPF Urine Opiates Screen Neg (NEG) Urine Methadone Screen Neg (NEG) Urine Barbiturates Neg (NEG) Urine Phencyclidine Screen Neg (NEG) Urine Amphetamine/Methamphetamine Neg (NEG) Urine Benzodiazepines Screen Neg (NEG) Urine Cocaine Screen Neg (NEG) Urine Cannabinoids Screen Neg (NEG) Urine Ethyl Alcohol Neg (NEG) VTE Prophylaxis Ordered VTE Prophylaxis Devices: Yes VTE Pharmacological Prophylaxi: Yes Assessment/Plan Assessment/Plan epilepy status requiring intubated acute resp failure with seizure AMS, with seizure JESE, vasomotor lactate acidosis elevated troponin hypotension on levaphed h/o Systolic CHF Dementia HTN HLD h/o epilepsy PPM depression plan: neuro, pulm consult ICU care, with intubated on propofol and levaphed, as per pulm, keep for now NPO, add IVF resume some po meds through OGT, hold HTN meds check Echo dvt, gi ppx tsh high, check t3,t4 on keppra iv bid labs daily add zosyn for now, incase aspirated CXR daily cc time 35min MARCIA MCCLURE MD Jun 08, 2018 15:36
[2018-06-08] MEDS: fentaNYL PF VIAL 100 MCG/2 ML VIAL IV PRN (15:52)
--- NOTE | 2018-06-08 16:12 | PDOC2 ---
NEUROLOGY CONSULT Date of Admission Date of Admission DATE: 06/08/18 TIME: 15:55 Reason for Consult Reason for Consult: IMPRESSION: Status epilepticus. Seizure. Metabolic encephalopathy. Respiratory failure. Lactic acidosis. 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 HTN. HLD. Pacemaker in site. RECOMMENDATIONS/PLAN: Life support in ICU at the present time. Keppra 1000 mg IV q12h. Fosphenytoin administrated. EEG. Lab: see orders. MRI not obtained due to pacemaker. HISTORY OF THE PRESENT ILLNESS: 72-y-old patient with Hx of seizure and has been treated with Keppra. He had mental status changes, unresponsiveness and convulsions noted byt his family to be brought to the ER of [facility]. He was intubated in the ER due to unable to maintain upper airway from seizing. Phenytoin was administrated in the ER to control his convulsion. Past Medical History Cardiovascular: HTN, Hyperlipidemia Pulmonary: No pertinent hx CENTRAL NERVOUS SYSTEM: Seizure GI: No pertinent hx Heme/Onc: No pertinent hx Hepatobiliary: No pertinent hx Psych: No pertinent hx Rheumatologic: No pertinent hx Infectious disease: No pertinent hx Renal/: No pertinent hx Endocrine: No pertinent hx Past Surgical History Appendectomy Family History Unknown Social History Smoke: No ALCOHOL: none Drugs: None ALLERGY: Reviewed. MEDICATIONS: Refer to [facility] REVIEW OF SYSTEMS: Constitutional: No malnutrition, weight loss, cachexia. Head: No recent traumatic brain or head injury. Skin: No edema, or rash. Ear: No infection. Eyes: No vision loss or color blindness. Nose: No bleeding or purulent discharges. Hearing: Hearing decrease. Neck: No injury. Cardiac: Pacemaker Placement, HTN, HLD. Pulmonary: No COPD. GI: No GI ulcer, GI bleeding. Urinary/genital: UTI. Endocrinologic: Diabetes Mellitus? Skeletomuscular: No muscular atrophy, deformity. Neurological: see HP. Psychiatric: Denies drug use/abuse. Otherwise, not [id number] review of systems. PHYSICAL EXAMINATION: General appearance is in acute distress. HEENT: Normocephalic and nontraumatic. Eyes, nose, ears, and throat are unremarkable. Neck is supple. No lymphadenopathy.No crepitus. Cardiovascular: S1, S2, regular rate and rhythm. Pulmonary: On vent. Abdomen: Bowel sounds are positive. Extremities: No rash, lesions, or edema. No restriction of range of motion NEUROLOGICAL EXAMINATION: On vent. Unresponsive. Not oriented to time, place and person. PERRL. EOMI not elicited. CN: no acute focal findings. Muscle tone: decreased. Muscle strength: minimal response to stimuli. DTR: 1+ Plantar reflex: Neutral response bilaterally Gait: Unable to walk. Sensory exam: no abnormal findings. Not able to access cerebellar signs elicited. F-T-N test not performed. Current Medications Current Medications Current Medications Levetiracetam 1000 mg/Sodium Chloride 110 ml @ 440 mls/hr 1X ONCE IV Last administered on 06/08/18at 09:03; Start 06/08/18 at 08:45; Stop 06/08/18 at 08 :59; Status DC Propofol (Diprivan) 200 mg 1X ONCE IV Last administered on 06/08/18at 08:52; Start 06/08/18 at 08:45; Stop 06/08/18 at 08:47; Status DC Sodium Chloride 1,000 ml @ 1,000 mls/hr 1X ONCE IV Last administered on 06/08at 09:03; Start 06/08/18 at 08:45; Stop 06/08/18 at 09:44; Status DC Sodium Chloride 1,000 ml @ 1,000 mls/hr 1X ONCE IV Last administered on 06/08at 09:03; Start 06/08/18 at 08:45; Stop 06/08/18 at 09:44; Status DC Etomidate (Amidate) 20 mg 1X ONCE IV Last administered on 06/08/18at 08:37; Start 06/08/18 at 08:45; Stop 06/08/18 at 08:47; Status DC Succinylcholine Chloride (Anectine) 100 mg 1X ONCE IV Last administered on at 08:38; Start 06/08/18 at 08:45; Stop 06/08/18 at 08:47; Status DC Propofol 50 ml @ As Directed STK-MED ONCE IV ; Start 06/08/18 at 08:49; Stop 06/08/18 at 08:50; Status DC Midazolam HCl (Versed) 4 mg 1X ONCE IV Last administered on 06/08/18at 09:13; Start 06/08/18 at 09:00; Stop 06/08/18 at 09:03; Status DC Fosphenytoin Sodium 1400 mg/ Sodium Chloride 78 ml @ 312 mls/hr 1X ONCE IV Last administered on 06/08/18at 09:46; Start 06/08/18 at 09:30; Stop 06/08/18 at 09:44; Status DC Norepinephrine Bitartrate 250 ml @ As Directed STK-MED ONCE IV ; Start at 10:11; Stop 06/08/18 at 10:12; Status DC Aspirin (Aspirin) 300 mg 1X STAT NE Last administered on 06/08/18at 10:36; Start 06/08/18 at 10:14; Stop 06/08/18 at 10:17; Status DC Norepinephrine Bitartrate 250 ml @ 1.875 mls/ hr CONT PRN IV SEE I/O RECORD Last administered on 06/08/18at 10:11; Start 06/08/18 at 10:30 Piperacillin Sod/ Tazobactam Sod 3.375 gm/Sodium Chloride 50 ml @ 100 mls/hr 1X ONCE IV Last administered on 06/08/18at 11:17; Start 06/08/18 at 10:30; Stop 06/08/18 at 10:59; Status DC Levetiracetam 1000 mg/Dextrose 110 ml @ 440 mls/hr BID IV ; Start 06/08/18 at 21:00 Albuterol/ Ipratropium (Duoneb) 3 ml RTQID NEB ; Start 06/08/18 at 12:30 Enoxaparin Sodium (Lovenox 40mg Syringe) 40 mg Q24H SQ Last administered on at 15:28; Start 06/08/18 at 13:00 Famotidine (Pepcid) 20 mg QHS PO ; Start 06/08/18 at 21:00 Propofol 100 ml @ 0 mls/hr CONT PRN IV PER PROTOCOL Last administered on at 15:27; Start 06/08/18 at 15:30 Fentanyl Citrate (Fentanyl 2ml Vial) 25 mcg PRN Q1HR PRN IV PAIN/SEDATION Last administered on 06/08/18at 15:52; Start 06/08/18 at 15:30 Aspirin (Children'S Aspirin) 81 mg [id number] PO ; Start 06/09/18 at 08:00 Atorvastatin Calcium (Lipitor) 20 mg HS PO ; Start 06/08/18 at 21:00 Sertraline HCl (Zoloft) 50 mg DAILY PO ; Start 06/09/18 at 09:00 Sodium Chloride 1,000 ml @ 100 mls/hr Q10H IV ; Start 06/08/18 at 15:30 Piperacillin Sod/ Tazobactam Sod 3.375 gm/Sodium Chloride 50 ml @ 100 mls/hr Q6HRS IV ; Start 06/08/18 at 18:00; Status UNV Piperacillin Sod/ Tazobactam Sod (Zosyn Per Pharmacy) 1 each PRN DAILY PRN MC SEE COMMENTS; Start 06/08/18 at 15:30 Piperacillin Sod/ Tazobactam Sod 2.25 gm/Sodium Chloride 50 ml @ 100 mls/hr Q6HRS IV ; Start 06/08/18 at 18:00 Active Scripts Active Reported Super B Complex (Vitamin B Complex & Vit C No.4) 150 Mg Tablet 150 Mg PO DAILY Lisinopril 10 Mg Tablet 1 Tab PO DAILY Aricept (Donepezil Hcl) 10 Mg Tablet 10 Mg PO HS Zoloft (Sertraline Hcl) 25 Mg Tablet 50 Mg PO DAILY Atorvastatin Calcium 20 Mg Tablet 20 Mg PO HS Spironolactone 25 Mg Tablet 25 Mg PO DAILY Multivitamins (Multivitamin) 1 Each Tablet 1 Tab PO DAILY Levetiracetam 500 Mg Tablet 2,000 Mg PO BID Carvedilol 6.25 Mg Tablet 6.25 Mg PO BID Aspir 81 (Aspirin) 81 Mg Tablet.dr 81 Mg PO DAILY Allergies Allergies: Allergies Coded Allergies Type Severity Reaction Last Updated Verified No Known Drug Allergies 08/28/14 No ROS Review of System The patient denies any associated fevers, chills, headache, ear pain, rhinorrhea , sore throat, stiff neck, productive cough, chest pain, shortness of breath, back or flank pain, abdominal pain, nausea, vomiting, diarrhea, constipation, dysuria, rash, numbness, weakness, tingling, incontinence, difficulty ambulating, or diaphoresis. Physical Exam Physical Exam General: Well developed, well nourished, no acute distress, well appearing HEENT: Pupils equally round and reactive to light, EOMI, no discharge, normal conjunctiva Neck: Supple, no nuchal rigidity, no JVD, trachea midline, no tenderness Cardiac: RRR, no murmurs, no gallops, no rubs Chest/Lungs: CTAB, no wheeze, no rhonchi, no crackles Abdomen: soft, non-distended, no guarding, no peritoneal signs, non-tender Back: No tenderness Extremities: no edema, pulses intact, non-tender,capillary refill <3 sec bilateral upper and lower extremities, Neuro: Alert and oriented x 4, no focal deficits, normal speech Vitals Vitals: Vital Signs Date Time Temp Pulse Resp B/P (MAP) Pulse Ox O2 Delivery O2 Flow Rate FiO2 06/08/18 15:52 16 Ventilator 06/08/18 14:30 64 100/61 (74) 06/08/18 14:00 100 06/08/18 11:00 99.5 99.5 Labs Labs Laboratory Tests Test 06/08/18 08:33 06/08/18 08:43 06/08/18 08:47 06/08/18 12:10 White Blood Count 8.0 x10^3/uL (4.0-11.0) Red Blood Count 4.30 x10^6/uL (4.30-5.70) Hemoglobin 14.6 g/dL (13.0-17.5) Hematocrit 42.2 % (39.0-53.0) Mean Corpuscular Volume 98 fL (79-100) Mean Corpuscular Hemoglobin 34 pg (25-35) Mean Corpuscular Hemoglobin Concent 35 g/dL (31-37) Red Cell Distribution Width 13.4 % (11.5-14.5) Platelet Count 251 x10^3/uL (140-400) Neutrophils (%) (Auto) 75 % (31-73) Lymphocytes (%) (Auto) 17 % (24-48) Monocytes (%) (Auto) 7 % (0-9) Eosinophils (%) (Auto) 1 % (0-3) Basophils (%) (Auto) 1 % (0-3) Neutrophils # (Auto) 6.0 x10^3uL (1.8-7.7) Lymphocytes # (Auto) 1.4 x10^3/uL (1.0-4.8) Monocytes # (Auto) 0.5 x10^3/uL (0.0-1.1) Eosinophils # (Auto) 0.1 x10^3/uL (0.0-0.7) Basophils # (Auto) 0.0 x10^3/uL (0.0-0.2) Prothrombin Time 13.3 SEC (11.7-14.0) Prothromb Time International Ratio 1.1 (0.8-1.1) Sodium Level 134 mmol/L (136-145) Potassium Level 4.5 mmol/L (3.5-5.1) Chloride Level 96 mmol/L (98-107) Carbon Dioxide Level 17 mmol/L (21-32) Anion Gap 21 (6-14) Blood Urea Nitrogen 23 mg/dL (8-26) Creatinine 2.0 mg/dL (0.7-1.3) Estimated GFR (Cockcroft-Gault) 33.2 BUN/Creatinine Ratio 12 (6-20) Glucose Level 203 mg/dL (70-99) Lactic Acid Level 13.1 mmol/L (0.4-2.0) 3.4 mmol/L (0.4-2.0) Calcium Level 10.0 mg/dL (8.5-10.1) Total Bilirubin 1.1 mg/dL (0.2-1.0) Aspartate Amino Transf (AST/SGOT) 50 U/L (15-37) Alanine Aminotransferase (ALT/SGPT) 59 U/L (16-63) Alkaline Phosphatase 90 U/L (46-116) Creatine Kinase 299 U/L (39-308) Troponin I Quantitative 0.350 ng/mL (0.000-0.055) Total Protein 8.1 g/dL (6.4-8.2) Albumin 3.9 g/dL (3.4-5.0) Albumin/Globulin Ratio 0.9 (1.0-1.7) Procalcitonin 0.17 ng/mL (0.00-0.10) Thyroid Stimulating Hormone (TSH) 4.422 uIU/mL (0.358-3.74) Ethyl Alcohol Level < 10 mg/dL (0-10) O2 Saturation 99 % (92-99) Arterial Blood pH 7.34 (7.35-7.45) Arterial Blood pCO2 at Patient Temp 37 mmHg (35-46) Arterial Blood pO2 at Patient Temp 418 mmHg (65-108) Arterial Blood HCO3 19 mmol/L (21-28) Arterial Blood Base Excess -6 mmol/L (-3-3) FiO2 80 Urine Collection Type U cath Urine Color Yellow Urine Clarity Cloudy Urine pH 6.0 Urine Specific [place] 1.015 Urine Protein 100 mg/dL (NEG-TRACE) Urine Glucose (UA) Negative mg/dL (NEG) Urine Ketones (Stick) Negative mg/dL (NEG) Urine Blood Negative (NEG) Urine Nitrite Negative (NEG) Urine Bilirubin Negative (NEG) Urine Urobilinogen Dipstick 1.0 mg/dL (0.2 mg/dL) Urine Leukocyte Esterase Negative (NEG) Urine RBC 0 /HPF (0-2) Urine WBC 0 /HPF (0-4) Urine Squamous Epithelial Cells None /LPF Urine Bacteria 0 /HPF (0-FEW) Urine Mucus Slight /LPF Urine Opiates Screen Neg (NEG) Urine Methadone Screen Neg (NEG) Urine Barbiturates Neg (NEG) Urine Phencyclidine Screen Neg (NEG) Urine Amphetamine/Methamphetamine Neg (NEG) Urine Benzodiazepines Screen Neg (NEG) Urine Cocaine Screen Neg (NEG) Urine Cannabinoids Screen Neg (NEG) Urine Ethyl Alcohol Neg (NEG) Laboratory Tests Test 06/08/18 08:33 06/08/18 08:43 06/08/18 08:47 06/08/18 12:10 White Blood Count 8.0 x10^3/uL (4.0-11.0) Red Blood Count 4.30 x10^6/uL (4.30-5.70) Hemoglobin 14.6 g/dL (13.0-17.5) Hematocrit 42.2 % (39.0-53.0) Mean Corpuscular Volume 98 fL (79-100) Mean Corpuscular Hemoglobin 34 pg (25-35) Mean Corpuscular Hemoglobin Concent 35 g/dL (31-37) Red Cell Distribution Width 13.4 % (11.5-14.5) Platelet Count 251 x10^3/uL (140-400) Neutrophils (%) (Auto) 75 % (31-73) Lymphocytes (%) (Auto) 17 % (24-48) Monocytes (%) (Auto) 7 % (0-9) Eosinophils (%) (Auto) 1 % (0-3) Basophils (%) (Auto) 1 % (0-3) Neutrophils # (Auto) 6.0 x10^3uL (1.8-7.7) Lymphocytes # (Auto) 1.4 x10^3/uL (1.0-4.8) Monocytes # (Auto) 0.5 x10^3/uL (0.0-1.1) Eosinophils # (Auto) 0.1 x10^3/uL (0.0-0.7) Basophils # (Auto) 0.0 x10^3/uL (0.0-0.2) Prothrombin Time 13.3 SEC (11.7-14.0) Prothromb Time International Ratio 1.1 (0.8-1.1) Sodium Level 134 mmol/L (136-145) Potassium Level 4.5 mmol/L (3.5-5.1) Chloride Level 96 mmol/L (98-107) Carbon Dioxide Level 17 mmol/L (21-32) Anion Gap 21 (6-14) Blood Urea Nitrogen 23 mg/dL (8-26) Creatinine 2.0 mg/dL (0.7-1.3) Estimated GFR (Cockcroft-Gault) 33.2 BUN/Creatinine Ratio 12 (6-20) Glucose Level 203 mg/dL (70-99) Lactic Acid Level 13.1 mmol/L (0.4-2.0) 3.4 mmol/L (0.4-2.0) Calcium Level 10.0 mg/dL (8.5-10.1) Total Bilirubin 1.1 mg/dL (0.2-1.0) Aspartate Amino Transf (AST/SGOT) 50 U/L (15-37) Alanine Aminotransferase (ALT/SGPT) 59 U/L (16-63) Alkaline Phosphatase 90 U/L (46-116) Creatine Kinase 299 U/L (39-308) Troponin I Quantitative 0.350 ng/mL (0.000-0.055) Total Protein 8.1 g/dL (6.4-8.2) Albumin 3.9 g/dL (3.4-5.0) Albumin/Globulin Ratio 0.9 (1.0-1.7) Procalcitonin 0.17 ng/mL (0.00-0.10) Thyroid Stimulating Hormone (TSH) 4.422 uIU/mL (0.358-3.74) Ethyl Alcohol Level < 10 mg/dL (0-10) O2 Saturation 99 % (92-99) Arterial Blood pH 7.34 (7.35-7.45) Arterial Blood pCO2 at Patient Temp 37 mmHg (35-46) Arterial Blood pO2 at Patient Temp 418 mmHg (65-108) Arterial Blood HCO3 19 mmol/L (21-28) Arterial Blood Base Excess -6 mmol/L (-3-3) FiO2 80 Urine Collection Type U cath Urine Color Yellow Urine Clarity Cloudy Urine pH 6.0 Urine Specific [place] 1.015 Urine Protein 100 mg/dL (NEG-TRACE) Urine Glucose (UA) Negative mg/dL (NEG) Urine Ketones (Stick) Negative mg/dL (NEG) Urine Blood Negative (NEG) Urine Nitrite Negative (NEG) Urine Bilirubin Negative (NEG) Urine Urobilinogen Dipstick 1.0 mg/dL (0.2 mg/dL) Urine Leukocyte Esterase Negative (NEG) Urine RBC 0 /HPF (0-2) Urine WBC 0 /HPF (0-4) Urine Squamous Epithelial Cells None /LPF Urine Bacteria 0 /HPF (0-FEW) Urine Mucus Slight /LPF Urine Opiates Screen Neg (NEG) Urine Methadone Screen Neg (NEG) Urine Barbiturates Neg (NEG) Urine Phencyclidine Screen Neg (NEG) Urine Amphetamine/Methamphetamine Neg (NEG) Urine Benzodiazepines Screen Neg (NEG) Urine Cocaine Screen Neg (NEG) Urine Cannabinoids Screen Neg (NEG) Urine Ethyl Alcohol Neg (NEG) PITO SUMNER MD Jun 08, 2018 16:12
[2018-06-08] MEDS: IV NORMAL SALINE 1000ML BAG 1,000 ML IV SCH (17:50)
[2018-06-08] MEDS ORDERED: PIPERACILLIN/TAZOBACTAM 3.375 GM in IV NORMAL SALINE 50ML 50 ML IV SCH (18:00)
[2018-06-08] MEDS: PIPERACILLIN/TAZOBACTAM 2.25 GM in IV NORMAL SALINE 50ML 50 ML IV SCH (19:16)
[2018-06-08] MEDS: IPRATRPIUM/ALBUTEROL 0.5/2.5MG 3 ML NEBU. NEB SCH (19:42)
[2018-06-08] MEDS: FAMOTIDINE 20 MG TABLET. PO SCH (21:09)
[2018-06-08] MEDS: ATORVASTATIN CALCIUM 20 MG TABLET PO SCH (21:09)
[2018-06-08] MEDS: levETIRAcetam 1,000 MG in IV DEXTROSE 5% 100ML 100 ML IV SCH (21:11)
[2018-06-09] VITALS (19 sets, daily range): BP systolic 81–124; BP diastolic 58–82
[2018-06-09] MEDS: PIPERACILLIN/TAZOBACTAM 2.25 GM in IV NORMAL SALINE 50ML 50 ML IV SCH ×3 (00:11→12:37)
[2018-06-09 03:52] LABS: BASO # 0.1 x10^3/uL (0.0-0.2); BASO % 1 % (0-3); EOS # 0.1 x10^3/uL (0.0-0.7); EOS % 1 % (0-3); HEMATOCRIT 35.4 % (39.0-53.0); HEMOGLOBIN 12.5 g/dL (13.0-17.5); LYMPH % 13 % (24-48); MEAN CORPUSCULAR HEMOGLOBIN 34 pg (25-35); MEAN CORPUSCULAR HGB CONC 35 g/dL (31-37); MEAN CORPUSCULAR VOLUME 97 fL (79-100); MONO % 13 % (0-9); NEUT # 5.5 x10^3uL (1.8-7.7); NEUT % 73 % (31-73); PLATELET COUNT 184 x10^3/uL (140-400); RED BLOOD COUNT 3.65 x10^6/uL (4.30-5.70); RED CELL DISTRIBUTION WIDTH 13.4 % (11.5-14.5); WHITE BLOOD COUNT 7.5 x10^3/uL (4.0-11.0)
[2018-06-09 04:24] LABS: FREE T4 1.1 ng/dL (0.76-1.46)
[2018-06-09 04:30] LABS: CALCIUM 8.7 mg/dL (8.5-10.1); CREATININE 1.4 mg/dL (0.7-1.3); GFR 50.1; POTASSIUM 3.6 mmol/L (3.5-5.1)
[2018-06-09] MEDS: NOREPINEPHRIN 8MG/250ML PREMIX 250 ML IV PRN (04:44)
[2018-06-09] MEDS: PROPOFOL 100 ML IV PRN (04:44)
[2018-06-09] MEDS: IV NORMAL SALINE 1000ML BAG 1,000 ML IV SCH ×2 (05:56→16:20)
[2018-06-09] MEDS: fentaNYL PF VIAL 100 MCG/2 ML VIAL IV PRN ×4 (07:08→21:30)
--- NOTE | 2018-06-09 07:56 | PDOC ---
PROGRESS NOTES Chief Complaint Chief Complaint Seizure Respiratory failure, hypoxia History of Present Illness History of Present Illness Patient is a 72 year old male who presents with seizure. Pt seen in ICU, intubated, all history got from ICU nurse and ERP. weekend caregiver saw him ok last night, pt has dementia, not sure about his baseline but lives independently. weekend caregiver found him seizuring 06/08/18, unresponsive and called EMS. He was dced here 4 months ago for seizure, takes keppra for now. Tonic-clonic activity was witnessed patient was diaphoretic and having difficulty controlling his secretions, n ER, with foaming secretions and was subsequently intubated and sedated with propofol and fentanyl. EEG bedside in ICU yesterday. LA 13, bp low with propofol, on levaphed 8mcg now. sedation weaning. Vent weaning this morning, noted with elevated troponin overnight. A/P: epilepy status requiring intubated - likely can extubate, wean sedation, cont keppra, consult neuro acute resp failure with seizure - intubated for hypoxia with seizure, can likely extubate based on his wean AMS, with seizure - has baseline dementia, he is alert on vent, not able to communicate JESE, vasomotor - likely from seizure, fluids lactate acidosis - likely seizure related, was given zosyn for possible aspiration, can d/c antibiotics today elevated troponin - with h/o CHF will consult cardiology, though trend looks to be coming down. May need pacer interrogation hypotension on levophed - weaning with vent h/o Systolic CHF - consult cardiology Dementia - light during day. Family nearby HTN - hold meds for now HLD - hold stating until taking PO h/o epilepsy - having trouble with meds, cont keppra PPM - interrogate today depression - related to dementia plan: neuro, pulm consult, cardiology consult ICU care, with intubated today, will stay until at least tomorrow after extubation NPO, add IVF - will get EXECUTIVE PILOT after extubation resume some po meds through OGT, hold HTN meds dvt, gi ppx on keppra iv bid labs daily Vitals Vitals Vital Signs Date Time Temp Pulse Resp B/P (MAP) Pulse Ox O2 Delivery O2 Flow Rate FiO2 06/09/18 07:08 16 Ventilator 06/09/18 07:00 64 105/80 (88) 100 06/09/18 04:00 98.8 98.8 Physical Exam General: Alert, Cooperative, mild distress Heart: Regular rate, Normal S1, Normal S2 Lungs: Clear Abdomen: Normal bowel sounds, Soft, No tenderness Extremities: No clubbing, No cyanosis, No edema Skin: No rashes, No significant lesion Labs LABS Laboratory Tests Test 06/08/18 08:33 06/08/18 08:43 06/08/18 08:47 06/08/18 12:10 White Blood Count 8.0 x10^3/uL (4.0-11.0) Red Blood Count 4.30 x10^6/uL (4.30-5.70) Hemoglobin 14.6 g/dL (13.0-17.5) Hematocrit 42.2 % (39.0-53.0) Mean Corpuscular Volume 98 fL (79-100) Mean Corpuscular Hemoglobin 34 pg (25-35) Mean Corpuscular Hemoglobin Concent 35 g/dL (31-37) Red Cell Distribution Width 13.4 % (11.5-14.5) Platelet Count 251 x10^3/uL (140-400) Neutrophils (%) (Auto) 75 % (31-73) Lymphocytes (%) (Auto) 17 % (24-48) Monocytes (%) (Auto) 7 % (0-9) Eosinophils (%) (Auto) 1 % (0-3) Basophils (%) (Auto) 1 % (0-3) Neutrophils # (Auto) 6.0 x10^3uL (1.8-7.7) Lymphocytes # (Auto) 1.4 x10^3/uL (1.0-4.8) Monocytes # (Auto) 0.5 x10^3/uL (0.0-1.1) Eosinophils # (Auto) 0.1 x10^3/uL (0.0-0.7) Basophils # (Auto) 0.0 x10^3/uL (0.0-0.2) Prothrombin Time 13.3 SEC (11.7-14.0) Prothromb Time International Ratio 1.1 (0.8-1.1) Sodium Level 134 mmol/L (136-145) Potassium Level 4.5 mmol/L (3.5-5.1) Chloride Level 96 mmol/L (98-107) Carbon Dioxide Level 17 mmol/L (21-32) Anion Gap 21 (6-14) Blood Urea Nitrogen 23 mg/dL (8-26) Creatinine 2.0 mg/dL (0.7-1.3) Estimated GFR (Cockcroft-Gault) 33.2 BUN/Creatinine Ratio 12 (6-20) Glucose Level 203 mg/dL (70-99) Lactic Acid Level 13.1 mmol/L (0.4-2.0) 3.4 mmol/L (0.4-2.0) Calcium Level 10.0 mg/dL (8.5-10.1) Total Bilirubin 1.1 mg/dL (0.2-1.0) Aspartate Amino Transf (AST/SGOT) 50 U/L (15-37) Alanine Aminotransferase (ALT/SGPT) 59 U/L (16-63) Alkaline Phosphatase 90 U/L (46-116) Creatine Kinase 299 U/L (39-308) Troponin I Quantitative 0.350 ng/mL (0.000-0.055) Total Protein 8.1 g/dL (6.4-8.2) Albumin 3.9 g/dL (3.4-5.0) Albumin/Globulin Ratio 0.9 (1.0-1.7) Procalcitonin 0.17 ng/mL (0.00-0.10) Thyroid Stimulating Hormone (TSH) 4.422 uIU/mL (0.358-3.74) Ethyl Alcohol Level < 10 mg/dL (0-10) O2 Saturation 99 % (92-99) Arterial Blood pH 7.34 (7.35-7.45) Arterial Blood pCO2 at Patient Temp 37 mmHg (35-46) Arterial Blood pO2 at Patient Temp 418 mmHg (65-108) Arterial Blood HCO3 19 mmol/L (21-28) Arterial Blood Base Excess -6 mmol/L (-3-3) FiO2 80 Urine Collection Type U cath Urine Color Yellow Urine Clarity Cloudy Urine pH 6.0 Urine Specific [place] 1.015 Urine Protein 100 mg/dL (NEG-TRACE) Urine Glucose (UA) Negative mg/dL (NEG) Urine Ketones (Stick) Negative mg/dL (NEG) Urine Blood Negative (NEG) Urine Nitrite Negative (NEG) Urine Bilirubin Negative (NEG) Urine Urobilinogen Dipstick 1.0 mg/dL (0.2 mg/dL) Urine Leukocyte Esterase Negative (NEG) Urine RBC 0 /HPF (0-2) Urine WBC 0 /HPF (0-4) Urine Squamous Epithelial Cells None /LPF Urine Bacteria 0 /HPF (0-FEW) Urine Mucus Slight /LPF Urine Opiates Screen Neg (NEG) Urine Methadone Screen Neg (NEG) Urine Barbiturates Neg (NEG) Urine Phencyclidine Screen Neg (NEG) Urine Amphetamine/Methamphetamine Neg (NEG) Urine Benzodiazepines Screen Neg (NEG) Urine Cocaine Screen Neg (NEG) Urine Cannabinoids Screen Neg (NEG) Urine Ethyl Alcohol Neg (NEG) Test 06/08/18 16:00 06/09/18 03:00 Magnesium Level 2.1 mg/dL (1.8-2.4) Troponin I Quantitative 3.339 ng/mL (0.000-0.055) White Blood Count 7.5 x10^3/uL (4.0-11.0) Red Blood Count 3.65 x10^6/uL (4.30-5.70) Hemoglobin 12.5 g/dL (13.0-17.5) Hematocrit 35.4 % (39.0-53.0) Mean Corpuscular Volume 97 fL (79-100) Mean Corpuscular Hemoglobin 34 pg (25-35) Mean Corpuscular Hemoglobin Concent 35 g/dL (31-37) Red Cell Distribution Width 13.4 % (11.5-14.5) Platelet Count 184 x10^3/uL (140-400) Neutrophils (%) (Auto) 73 % (31-73) Lymphocytes (%) (Auto) 13 % (24-48) Monocytes (%) (Auto) 13 % (0-9) Eosinophils (%) (Auto) 1 % (0-3) Basophils (%) (Auto) 1 % (0-3) Neutrophils # (Auto) 5.5 x10^3uL (1.8-7.7) Lymphocytes # (Auto) 1.0 x10^3/uL (1.0-4.8) Monocytes # (Auto) 1.0 x10^3/uL (0.0-1.1) Eosinophils # (Auto) 0.1 x10^3/uL (0.0-0.7) Basophils # (Auto) 0.1 x10^3/uL (0.0-0.2) Sodium Level 141 mmol/L (136-145) Potassium Level 3.6 mmol/L (3.5-5.1) Chloride Level 105 mmol/L (98-107) Carbon Dioxide Level 25 mmol/L (21-32) Anion Gap 11 (6-14) Blood Urea Nitrogen 18 mg/dL (8-26) Creatinine 1.4 mg/dL (0.7-1.3) Estimated GFR (Cockcroft-Gault) 50.1 Glucose Level 112 mg/dL (70-99) Lactic Acid Level 1.3 mmol/L (0.4-2.0) Calcium Level 8.7 mg/dL (8.5-10.1) Free Thyroxine 1.10 ng/dL (0.76-1.46) Free Triiodothyronine (T3) pg/mL 1.58 pg/mL (2.18-3.98) Comment Review of Relevant I have reviewed the following items sharee (where applicable) has been applied. Labs Laboratory Tests Test 06/08/18 08:33 06/08/18 08:43 06/08/18 08:47 06/08/18 12:10 White Blood Count 8.0 x10^3/uL (4.0-11.0) Red Blood Count 4.30 x10^6/uL (4.30-5.70) Hemoglobin 14.6 g/dL (13.0-17.5) Hematocrit 42.2 % (39.0-53.0) Mean Corpuscular Volume 98 fL (79-100) Mean Corpuscular Hemoglobin 34 pg (25-35) Mean Corpuscular Hemoglobin Concent 35 g/dL (31-37) Red Cell Distribution Width 13.4 % (11.5-14.5) Platelet Count 251 x10^3/uL (140-400) Neutrophils (%) (Auto) 75 % (31-73) Lymphocytes (%) (Auto) 17 % (24-48) Monocytes (%) (Auto) 7 % (0-9) Eosinophils (%) (Auto) 1 % (0-3) Basophils (%) (Auto) 1 % (0-3) Neutrophils # (Auto) 6.0 x10^3uL (1.8-7.7) Lymphocytes # (Auto) 1.4 x10^3/uL (1.0-4.8) Monocytes # (Auto) 0.5 x10^3/uL (0.0-1.1) Eosinophils # (Auto) 0.1 x10^3/uL (0.0-0.7) Basophils # (Auto) 0.0 x10^3/uL (0.0-0.2) Prothrombin Time 13.3 SEC (11.7-14.0) Prothromb Time International Ratio 1.1 (0.8-1.1) Sodium Level 134 mmol/L (136-145) Potassium Level 4.5 mmol/L (3.5-5.1) Chloride Level 96 mmol/L (98-107) Carbon Dioxide Level 17 mmol/L (21-32) Anion Gap 21 (6-14) Blood Urea Nitrogen 23 mg/dL (8-26) Creatinine 2.0 mg/dL (0.7-1.3) Estimated GFR (Cockcroft-Gault) 33.2 BUN/Creatinine Ratio 12 (6-20) Glucose Level 203 mg/dL (70-99) Lactic Acid Level 13.1 mmol/L (0.4-2.0) 3.4 mmol/L (0.4-2.0) Calcium Level 10.0 mg/dL (8.5-10.1) Total Bilirubin 1.1 mg/dL (0.2-1.0) Aspartate Amino Transf (AST/SGOT) 50 U/L (15-37) Alanine Aminotransferase (ALT/SGPT) 59 U/L (16-63) Alkaline Phosphatase 90 U/L (46-116) Creatine Kinase 299 U/L (39-308) Troponin I Quantitative 0.350 ng/mL (0.000-0.055) Total Protein 8.1 g/dL (6.4-8.2) Albumin 3.9 g/dL (3.4-5.0) Albumin/Globulin Ratio 0.9 (1.0-1.7) Procalcitonin 0.17 ng/mL (0.00-0.10) Thyroid Stimulating Hormone (TSH) 4.422 uIU/mL (0.358-3.74) Ethyl Alcohol Level < 10 mg/dL (0-10) O2 Saturation 99 % (92-99) Arterial Blood pH 7.34 (7.35-7.45) Arterial Blood pCO2 at Patient Temp 37 mmHg (35-46) Arterial Blood pO2 at Patient Temp 418 mmHg (65-108) Arterial Blood HCO3 19 mmol/L (21-28) Arterial Blood Base Excess -6 mmol/L (-3-3) FiO2 80 Urine Collection Type U cath Urine Color Yellow Urine Clarity Cloudy Urine pH 6.0 Urine Specific [place] 1.015 Urine Protein 100 mg/dL (NEG-TRACE) Urine Glucose (UA) Negative mg/dL (NEG) Urine Ketones (Stick) Negative mg/dL (NEG) Urine Blood Negative (NEG) Urine Nitrite Negative (NEG) Urine Bilirubin Negative (NEG) Urine Urobilinogen Dipstick 1.0 mg/dL (0.2 mg/dL) Urine Leukocyte Esterase Negative (NEG) Urine RBC 0 /HPF (0-2) Urine WBC 0 /HPF (0-4) Urine Squamous Epithelial Cells None /LPF Urine Bacteria 0 /HPF (0-FEW) Urine Mucus Slight /LPF Urine Opiates Screen Neg (NEG) Urine Methadone Screen Neg (NEG) Urine Barbiturates Neg (NEG) Urine Phencyclidine Screen Neg (NEG) Urine Amphetamine/Methamphetamine Neg (NEG) Urine Benzodiazepines Screen Neg (NEG) Urine Cocaine Screen Neg (NEG) Urine Cannabinoids Screen Neg (NEG) Urine Ethyl Alcohol Neg (NEG) Test 06/08/18 16:00 06/09/18 03:00 Magnesium Level 2.1 mg/dL (1.8-2.4) Troponin I Quantitative 3.339 ng/mL (0.000-0.055) White Blood Count 7.5 x10^3/uL (4.0-11.0) Red Blood Count 3.65 x10^6/uL (4.30-5.70) Hemoglobin 12.5 g/dL (13.0-17.5) Hematocrit 35.4 % (39.0-53.0) Mean Corpuscular Volume 97 fL (79-100) Mean Corpuscular Hemoglobin 34 pg (25-35) Mean Corpuscular Hemoglobin Concent 35 g/dL (31-37) Red Cell Distribution Width 13.4 % (11.5-14.5) Platelet Count 184 x10^3/uL (140-400) Neutrophils (%) (Auto) 73 % (31-73) Lymphocytes (%) (Auto) 13 % (24-48) Monocytes (%) (Auto) 13 % (0-9) Eosinophils (%) (Auto) 1 % (0-3) Basophils (%) (Auto) 1 % (0-3) Neutrophils # (Auto) 5.5 x10^3uL (1.8-7.7) Lymphocytes # (Auto) 1.0 x10^3/uL (1.0-4.8) Monocytes # (Auto) 1.0 x10^3/uL (0.0-1.1) Eosinophils # (Auto) 0.1 x10^3/uL (0.0-0.7) Basophils # (Auto) 0.1 x10^3/uL (0.0-0.2) Sodium Level 141 mmol/L (136-145) Potassium Level 3.6 mmol/L (3.5-5.1) Chloride Level 105 mmol/L (98-107) Carbon Dioxide Level 25 mmol/L (21-32) Anion Gap 11 (6-14) Blood Urea Nitrogen 18 mg/dL (8-26) Creatinine 1.4 mg/dL (0.7-1.3) Estimated GFR (Cockcroft-Gault) 50.1 Glucose Level 112 mg/dL (70-99) Lactic Acid Level 1.3 mmol/L (0.4-2.0) Calcium Level 8.7 mg/dL (8.5-10.1) Free Thyroxine 1.10 ng/dL (0.76-1.46) Free Triiodothyronine (T3) pg/mL 1.58 pg/mL (2.18-3.98) Laboratory Tests Test 06/08/18 08:33 06/08/18 08:43 06/08/18 08:47 06/08/18 12:10 White Blood Count 8.0 x10^3/uL (4.0-11.0) Red Blood Count 4.30 x10^6/uL (4.30-5.70) Hemoglobin 14.6 g/dL (13.0-17.5) Hematocrit 42.2 % (39.0-53.0) Mean Corpuscular Volume 98 fL (79-100) Mean Corpuscular Hemoglobin 34 pg (25-35) Mean Corpuscular Hemoglobin Concent 35 g/dL (31-37) Red Cell Distribution Width 13.4 % (11.5-14.5) Platelet Count 251 x10^3/uL (140-400) Neutrophils (%) (Auto) 75 % (31-73) Lymphocytes (%) (Auto) 17 % (24-48) Monocytes (%) (Auto) 7 % (0-9) Eosinophils (%) (Auto) 1 % (0-3) Basophils (%) (Auto) 1 % (0-3) Neutrophils # (Auto) 6.0 x10^3uL (1.8-7.7) Lymphocytes # (Auto) 1.4 x10^3/uL (1.0-4.8) Monocytes # (Auto) 0.5 x10^3/uL (0.0-1.1) Eosinophils # (Auto) 0.1 x10^3/uL (0.0-0.7) Basophils # (Auto) 0.0 x10^3/uL (0.0-0.2) Prothrombin Time 13.3 SEC (11.7-14.0) Prothromb Time International Ratio 1.1 (0.8-1.1) Sodium Level 134 mmol/L (136-145) Potassium Level 4.5 mmol/L (3.5-5.1) Chloride Level 96 mmol/L (98-107) Carbon Dioxide Level 17 mmol/L (21-32) Anion Gap 21 (6-14) Blood Urea Nitrogen 23 mg/dL (8-26) Creatinine 2.0 mg/dL (0.7-1.3) Estimated GFR (Cockcroft-Gault) 33.2 BUN/Creatinine Ratio 12 (6-20) Glucose Level 203 mg/dL (70-99) Lactic Acid Level 13.1 mmol/L (0.4-2.0) 3.4 mmol/L (0.4-2.0) Calcium Level 10.0 mg/dL (8.5-10.1) Total Bilirubin 1.1 mg/dL (0.2-1.0) Aspartate Amino Transf (AST/SGOT) 50 U/L (15-37) Alanine Aminotransferase (ALT/SGPT) 59 U/L (16-63) Alkaline Phosphatase 90 U/L (46-116) Creatine Kinase 299 U/L (39-308) Troponin I Quantitative 0.350 ng/mL (0.000-0.055) Total Protein 8.1 g/dL (6.4-8.2) Albumin 3.9 g/dL (3.4-5.0) Albumin/Globulin Ratio 0.9 (1.0-1.7) Procalcitonin 0.17 ng/mL (0.00-0.10) Thyroid Stimulating Hormone (TSH) 4.422 uIU/mL (0.358-3.74) Ethyl Alcohol Level < 10 mg/dL (0-10) O2 Saturation 99 % (92-99) Arterial Blood pH 7.34 (7.35-7.45) Arterial Blood pCO2 at Patient Temp 37 mmHg (35-46) Arterial Blood pO2 at Patient Temp 418 mmHg (65-108) Arterial Blood HCO3 19 mmol/L (21-28) Arterial Blood Base Excess -6 mmol/L (-3-3) FiO2 80 Urine Collection Type U cath Urine Color Yellow Urine Clarity Cloudy Urine pH 6.0 Urine Specific [place] 1.015 Urine Protein 100 mg/dL (NEG-TRACE) Urine Glucose (UA) Negative mg/dL (NEG) Urine Ketones (Stick) Negative mg/dL (NEG) Urine Blood Negative (NEG) Urine Nitrite Negative (NEG) Urine Bilirubin Negative (NEG) Urine Urobilinogen Dipstick 1.0 mg/dL (0.2 mg/dL) Urine Leukocyte Esterase Negative (NEG) Urine RBC 0 /HPF (0-2) Urine WBC 0 /HPF (0-4) Urine Squamous Epithelial Cells None /LPF Urine Bacteria 0 /HPF (0-FEW) Urine Mucus Slight /LPF Urine Opiates Screen Neg (NEG) Urine Methadone Screen Neg (NEG) Urine Barbiturates Neg (NEG) Urine Phencyclidine Screen Neg (NEG) Urine Amphetamine/Methamphetamine Neg (NEG) Urine Benzodiazepines Screen Neg (NEG) Urine Cocaine Screen Neg (NEG) Urine Cannabinoids Screen Neg (NEG) Urine Ethyl Alcohol Neg (NEG) Test 06/08/18 16:00 06/09/18 03:00 Magnesium Level 2.1 mg/dL (1.8-2.4) Troponin I Quantitative 3.339 ng/mL (0.000-0.055) White Blood Count 7.5 x10^3/uL (4.0-11.0) Red Blood Count 3.65 x10^6/uL (4.30-5.70) Hemoglobin 12.5 g/dL (13.0-17.5) Hematocrit 35.4 % (39.0-53.0) Mean Corpuscular Volume 97 fL (79-100) Mean Corpuscular Hemoglobin 34 pg (25-35) Mean Corpuscular Hemoglobin Concent 35 g/dL (31-37) Red Cell Distribution Width 13.4 % (11.5-14.5) Platelet Count 184 x10^3/uL (140-400) Neutrophils (%) (Auto) 73 % (31-73) Lymphocytes (%) (Auto) 13 % (24-48) Monocytes (%) (Auto) 13 % (0-9) Eosinophils (%) (Auto) 1 % (0-3) Basophils (%) (Auto) 1 % (0-3) Neutrophils # (Auto) 5.5 x10^3uL (1.8-7.7) Lymphocytes # (Auto) 1.0 x10^3/uL (1.0-4.8) Monocytes # (Auto) 1.0 x10^3/uL (0.0-1.1) Eosinophils # (Auto) 0.1 x10^3/uL (0.0-0.7) Basophils # (Auto) 0.1 x10^3/uL (0.0-0.2) Sodium Level 141 mmol/L (136-145) Potassium Level 3.6 mmol/L (3.5-5.1) Chloride Level 105 mmol/L (98-107) Carbon Dioxide Level 25 mmol/L (21-32) Anion Gap 11 (6-14) Blood Urea Nitrogen 18 mg/dL (8-26) Creatinine 1.4 mg/dL (0.7-1.3) Estimated GFR (Cockcroft-Gault) 50.1 Glucose Level 112 mg/dL (70-99) Lactic Acid Level 1.3 mmol/L (0.4-2.0) Calcium Level 8.7 mg/dL (8.5-10.1) Free Thyroxine 1.10 ng/dL (0.76-1.46) Free Triiodothyronine (T3) pg/mL 1.58 pg/mL (2.18-3.98) Medications Current Medications Levetiracetam 1000 mg/Sodium Chloride 110 ml @ 440 mls/hr 1X ONCE IV Last administered on 06/08/18at 09:03; Start 06/08/18 at 08:45; Stop 06/08/18 at 08 :59; Status DC Propofol (Diprivan) 200 mg 1X ONCE IV Last administered on 06/08/18at 08:52; Start 06/08/18 at 08:45; Stop 06/08/18 at 08:47; Status DC Sodium Chloride 1,000 ml @ 1,000 mls/hr 1X ONCE IV Last administered on 06/08at 09:03; Start 06/08/18 at 08:45; Stop 06/08/18 at 09:44; Status DC Sodium Chloride 1,000 ml @ 1,000 mls/hr 1X ONCE IV Last administered on 06/08at 09:03; Start 06/08/18 at 08:45; Stop 06/08/18 at 09:44; Status DC Etomidate (Amidate) 20 mg 1X ONCE IV Last administered on 06/08/18at 08:37; Start 06/08/18 at 08:45; Stop 06/08/18 at 08:47; Status DC Succinylcholine Chloride (Anectine) 100 mg 1X ONCE IV Last administered on at 08:38; Start 06/08/18 at 08:45; Stop 06/08/18 at 08:47; Status DC Propofol 50 ml @ As Directed STK-MED ONCE IV ; Start 06/08/18 at 08:49; Stop 06/08/18 at 08:50; Status DC Midazolam HCl (Versed) 4 mg 1X ONCE IV Last administered on 06/08/18at 09:13; Start 06/08/18 at 09:00; Stop 06/08/18 at 09:03; Status DC Fosphenytoin Sodium 1400 mg/ Sodium Chloride 78 ml @ 312 mls/hr 1X ONCE IV Last administered on 06/08/18at 09:46; Start 06/08/18 at 09:30; Stop 06/08/18 at 09:44; Status DC Norepinephrine Bitartrate 250 ml @ As Directed STK-MED ONCE IV ; Start at 10:11; Stop 06/08/18 at 10:12; Status DC Aspirin (Aspirin) 300 mg 1X STAT TX Last administered on 06/08/18at 10:36; Start 06/08/18 at 10:14; Stop 06/08/18 at 10:17; Status DC Norepinephrine Bitartrate 250 ml @ 1.875 mls/ hr CONT PRN IV SEE I/O RECORD Last administered on 06/09/18at 04:44; Start 06/08/18 at 10:30 Piperacillin Sod/ Tazobactam Sod 3.375 gm/Sodium Chloride 50 ml @ 100 mls/hr 1X ONCE IV Last administered on 06/08/18at 11:17; Start 06/08/18 at 10:30; Stop 06/08/18 at 10:59; Status DC Levetiracetam 1000 mg/Dextrose 110 ml @ 440 mls/hr BID IV Last administered on 06/08/18at 21:11; Start 06/08/18 at 21:00 Albuterol/ Ipratropium (Duoneb) 3 ml RTQID NEB Last administered on 06/08/18at 19:42; Start 06/08/18 at 12:30 Enoxaparin Sodium (Lovenox 40mg Syringe) 40 mg Q24H SQ Last administered on at 15:28; Start 06/08/18 at 13:00 Famotidine (Pepcid) 20 mg QHS PO Last administered on 06/08/18at 21:09; Start 06/08/18 at 21:00 Propofol 100 ml @ 0 mls/hr CONT PRN IV PER PROTOCOL Last administered on at 04:44; Start 06/08/18 at 15:30 Fentanyl Citrate (Fentanyl 2ml Vial) 25 mcg PRN Q1HR PRN IV PAIN/SEDATION Last administered on 06/09/18at 07:08; Start 06/08/18 at 15:30 Aspirin (Children'S Aspirin) 81 mg DAILYWBKFT PO ; Start 06/09/18 at 08:00 Atorvastatin Calcium (Lipitor) 20 mg HS PO Last administered on 06/08/18at 21: 09; Start 06/08/18 at 21:00 Sertraline HCl (Zoloft) 50 mg DAILY PO ; Start 06/09/18 at 09:00 Sodium Chloride 1,000 ml @ 100 mls/hr Q10H IV Last administered on 06/09/18at 05:56; Start 06/08/18 at 15:30 Piperacillin Sod/ Tazobactam Sod 3.375 gm/Sodium Chloride 50 ml @ 100 mls/hr Q6HRS IV ; Start 06/08/18 at 18:00; Status UNV Piperacillin Sod/ Tazobactam Sod (Zosyn Per Pharmacy) 1 each PRN DAILY PRN MC SEE COMMENTS; Start 06/08/18 at 15:30 Piperacillin Sod/ Tazobactam Sod 2.25 gm/Sodium Chloride 50 ml @ 100 mls/hr Q6HRS IV Last administered on 06/09/18at 06:02; Start 06/08/18 at 18:00 Active Scripts Active Reported Super B Complex (Vitamin B Complex & Vit C No.4) 150 Mg Tablet 150 Mg PO DAILY Lisinopril 10 Mg Tablet 1 Tab PO DAILY Aricept (Donepezil Hcl) 10 Mg Tablet 10 Mg PO HS Zoloft (Sertraline Hcl) 25 Mg Tablet 50 Mg PO DAILY Atorvastatin Calcium 20 Mg Tablet 20 Mg PO HS Spironolactone 25 Mg Tablet 25 Mg PO DAILY Multivitamins (Multivitamin) 1 Each Tablet 1 Tab PO DAILY Levetiracetam 500 Mg Tablet 2,000 Mg PO BID Carvedilol 6.25 Mg Tablet 6.25 Mg PO BID Aspir 81 (Aspirin) 81 Mg Tablet.dr 81 Mg PO DAILY Vitals/I & O Vital Sign - Last 24 Hours 06/08/18 06/08/18 06/08/18 06/08/18 08:29 08:41 08:45 08:58 Temp 99.7 99.7 Pulse 117 96 100 Resp 20 16 16 B/P (MAP) 136/94 (108) Pulse Ox 98 99 100 100 O2 Delivery Bag Valve Mask Ventilator 06/08/18 06/08/18 06/08/18 06/08/18 09:02 09:07 09:12 09:17 Pulse 92 88 86 84 Resp 16 16 16 16 Pulse Ox 100 100 99 100 06/08/18 06/08/18 06/08/18 06/08/18 09:22 09:27 09:32 09:37 Pulse 82 88 78 84 Resp 16 16 16 16 Pulse Ox 100 100 100 97 1006/08/18 06/08/18 06/08/18 09:42 09:47 10:09 10:16 Pulse 88 78 60 60 Resp 16 16 16 16 Pulse Ox 97 99 99 100 06/08/18 06/08/18 06/08/18 06/08/18 10:16 10:22 10:27 10:36 Pulse 60 60 60 68 Resp 16 16 16 16 Pulse Ox 100 100 100 100 06/08/18 06/08/18 06/08/18 06/08/18 10:40 11:00 11:30 11:38 Temp 99.5 99.5 Pulse 70 80 60 Resp 16 16 16 B/P (MAP) 90/58 (69) 98/62 (74) Pulse Ox 100 100 O2 Delivery Ventilator Ventilator Ventilator 06/08/18 06/08/18 06/08/18 06/08/18 12:00 12:30 12:30 13:00 Pulse 60 64 64 Resp 16 16 16 B/P (MAP) 97/68 (78) 100/70 (80) 106/75 (85) Pulse Ox 100 O2 Delivery Ventilator Ventilator Mechanical Ventilator Ventilator 06/08/18 06/08/18 06/08/18 06/08/18 13:30 13:30 14:00 14:30 Pulse 64 64 64 Resp 16 16 16 B/P (MAP) 104/70 (81) 104/70 (81) 100/61 (74) Pulse Ox 100 100 O2 Delivery Ventilator Ventilator Ventilator Ventilator 06/08/18 06/08/18 06/08/18 06/08/18 15:00 15:30 15:52 16:00 Pulse 68 66 Resp 16 16 16 B/P (MAP) 104/71 (82) 104/75 (85) O2 Delivery Ventilator Ventilator Ventilator Mechanical Ventilator 06/08/18 06/08/18 06/08/18 06/08/18 16:00 16:22 16:25 16:30 Temp 100.4 100.4 Pulse 64 66 Resp 16 16 16 B/P (MAP) 101/72 (82) 105/71 (82) Pulse Ox 100 100 O2 Delivery Ventilator Ventilator Ventilator Ventilator 06/08/18 06/08/18 06/08/18 06/08/18 17:00 17:30 18:00 19:00 Pulse 66 66 74 66 Resp 16 16 16 16 B/P (MAP) 106/67 (80) 105/76 (86) 93/72 (79) 104/75 (85) Pulse Ox 100 100 O2 Delivery Ventilator Ventilator Ventilator Ventilator 06/08/18 06/08/18 06/08/18 06/08/18 19:42 20:00 20:00 21:00 Temp 99.5 99.5 Pulse 72 65 Resp 16 16 B/P (MAP) 99/56 (70) 90/50 (63) Pulse Ox 100 100 100 O2 Delivery Ventilator Ventilator Mechanical Ventilator Ventilator 06/08/18 06/08/18 06/08/18 06/08/18 21:00 22:00 23:00 23:15 Pulse 64 62 66 Resp 16 16 16 B/P (MAP) 118/76 (90) 127/76 (93) 112/78 (89) Pulse Ox 100 100 100 100 O2 Delivery Ventilator Ventilator Ventilator Ventilator 06/08/18 06/08/18 06/08/18 06/08/18 23:30 23:42 23:45 23:59 Pulse 62 72 Resp 16 16 B/P (MAP) 122/81 (95) 117/86 (96) Pulse Ox 100 100 100 O2 Delivery Ventilator Ventilator Ventilator Mechanical Ventilator 06/08/18 06/09/18 06/09/18 06/09/18 23:59 01:00 01:02 02:00 Temp 98.5 98.5 Pulse 65 62 67 Resp 16 16 16 B/P (MAP) 95/65 (75) 92/58 (69) 98/64 (75) Pulse Ox 100 100 100 100 O2 Delivery Ventilator Ventilator Ventilator Ventilator 06/09/18 06/09/18 06/09/18 06/09/18 03:00 03:24 04:00 04:00 Temp 98.8 98.8 Pulse 69 67 Resp 16 16 B/P (MAP) 91/66 (74) 86/69 (75) Pulse Ox 100 100 100 O2 Delivery Ventilator Ventilator Mechanical Ventilator Ventilator 06/09/18 06/09/18 06/09/18 06/09/18 05:00 05:55 06:00 07:00 Pulse 64 68 64 Resp 16 16 16 B/P (MAP) 96/68 (77) 105/74 (84) 105/80 (88) Pulse Ox 100 100 100 100 O2 Delivery Ventilator Ventilator Ventilator Ventilator 06/09/18 07:08 Resp 16 O2 Delivery Ventilator Intake and Output 06/08/18 06/08/18 06/09/18 15:00 23:00 07:00 Intake Total 2238 ml 440 ml 2318 ml Output Total 200 ml 610 ml 520 ml Balance 2038 ml -170 ml 1798 ml LESLIE NEVAREZ MD Jun 09, 2018 07:56
[2018-06-09] MEDS: IPRATRPIUM/ALBUTEROL 0.5/2.5MG 3 ML NEBU. NEB SCH ×4 (08:01→19:56)
[2018-06-09 08:13] LABS: BASE EXCESS ABG -2 mmol/L (-3-3); HCO3 ABG 20 mmol/L (21-28); PCO2 ABG 28 mmHg (35-46); PO2 ABG 213 mmHg (65-108); SAT O2 ABG 99 % (92-99)
[2018-06-09 08:15] LABS: FIO2 ABG 40
[2018-06-09] MEDS: ASPIRIN CHEWABLE 81 MG TABLET. PO SCH (08:35)
[2018-06-09] MEDS: levETIRAcetam 1,000 MG in IV DEXTROSE 5% 100ML 100 ML IV SCH ×2 (08:35→21:09)
[2018-06-09] MEDS: SERTRALINE 50 MG TABLET. PO SCH (08:35)
[2018-06-09 09:07] LABS: BASE EXCESS ABG -2 mmol/L (-3-3); HCO3 ABG 22 mmol/L (21-28); PCO2 ABG 35 mmHg (35-46); PO2 ABG 214 mmHg (65-108); SAT O2 ABG 99 % (92-99)
[2018-06-09 09:11] LABS: FIO2 ABG 40
--- NOTE | 2018-06-09 09:33 | PDOC ---
PULMONARY PROGRESS NOTES Subjective awake, on CPAP trial wants ET tube out no further seizures Vitals Vital Signs Date Time Temp Pulse Resp B/P (MAP) Pulse Ox O2 Delivery O2 Flow Rate FiO2 06/09/18 08:02 100 Ventilator 06/09/18 07:08 16 06/09/18 07:00 64 105/80 (88) 06/09/18 04:00 98.8 98.8 General: Alert, No acute distress Lungs: Other (rhonchi right lung) Cardiovascular: S1 Abdomen: Soft Neuro Exam: Alert Extremities: No Edema Skin: Warm Labs Laboratory Tests Test 06/08/18 08:32 06/08/18 08:33 06/08/18 08:43 06/08/18 08:47 Glucose (Fingerstick) 185 mg/dL (70-99) White Blood Count 8.0 x10^3/uL (4.0-11.0) Red Blood Count 4.30 x10^6/uL (4.30-5.70) Hemoglobin 14.6 g/dL (13.0-17.5) Hematocrit 42.2 % (39.0-53.0) Mean Corpuscular Volume 98 fL (79-100) Mean Corpuscular Hemoglobin 34 pg (25-35) Mean Corpuscular Hemoglobin Concent 35 g/dL (31-37) Red Cell Distribution Width 13.4 % (11.5-14.5) Platelet Count 251 x10^3/uL (140-400) Neutrophils (%) (Auto) 75 % (31-73) Lymphocytes (%) (Auto) 17 % (24-48) Monocytes (%) (Auto) 7 % (0-9) Eosinophils (%) (Auto) 1 % (0-3) Basophils (%) (Auto) 1 % (0-3) Neutrophils # (Auto) 6.0 x10^3uL (1.8-7.7) Lymphocytes # (Auto) 1.4 x10^3/uL (1.0-4.8) Monocytes # (Auto) 0.5 x10^3/uL (0.0-1.1) Eosinophils # (Auto) 0.1 x10^3/uL (0.0-0.7) Basophils # (Auto) 0.0 x10^3/uL (0.0-0.2) Prothrombin Time 13.3 SEC (11.7-14.0) Prothromb Time International Ratio 1.1 (0.8-1.1) Sodium Level 134 mmol/L (136-145) Potassium Level 4.5 mmol/L (3.5-5.1) Chloride Level 96 mmol/L (98-107) Carbon Dioxide Level 17 mmol/L (21-32) Anion Gap 21 (6-14) Blood Urea Nitrogen 23 mg/dL (8-26) Creatinine 2.0 mg/dL (0.7-1.3) Estimated GFR (Cockcroft-Gault) 33.2 BUN/Creatinine Ratio 12 (6-20) Glucose Level 203 mg/dL (70-99) Lactic Acid Level 13.1 mmol/L (0.4-2.0) Calcium Level 10.0 mg/dL (8.5-10.1) Total Bilirubin 1.1 mg/dL (0.2-1.0) Aspartate Amino Transf (AST/SGOT) 50 U/L (15-37) Alanine Aminotransferase (ALT/SGPT) 59 U/L (16-63) Alkaline Phosphatase 90 U/L (46-116) Creatine Kinase 299 U/L (39-308) Troponin I Quantitative 0.350 ng/mL (0.000-0.055) Total Protein 8.1 g/dL (6.4-8.2) Albumin 3.9 g/dL (3.4-5.0) Albumin/Globulin Ratio 0.9 (1.0-1.7) Procalcitonin 0.17 ng/mL (0.00-0.10) Thyroid Stimulating Hormone (TSH) 4.422 uIU/mL (0.358-3.74) Ethyl Alcohol Level < 10 mg/dL (0-10) O2 Saturation 99 % (92-99) Arterial Blood pH 7.34 (7.35-7.45) Arterial Blood pCO2 at Patient Temp 37 mmHg (35-46) Arterial Blood pO2 at Patient Temp 418 mmHg (65-108) Arterial Blood HCO3 19 mmol/L (21-28) Arterial Blood Base Excess -6 mmol/L (-3-3) FiO2 80 Urine Collection Type U cath Urine Color Yellow Urine Clarity Cloudy Urine pH 6.0 Urine Specific [place] 1.015 Urine Protein 100 mg/dL (NEG-TRACE) Urine Glucose (UA) Negative mg/dL (NEG) Urine Ketones (Stick) Negative mg/dL (NEG) Urine Blood Negative (NEG) Urine Nitrite Negative (NEG) Urine Bilirubin Negative (NEG) Urine Urobilinogen Dipstick 1.0 mg/dL (0.2 mg/dL) Urine Leukocyte Esterase Negative (NEG) Urine RBC 0 /HPF (0-2) Urine WBC 0 /HPF (0-4) Urine Squamous Epithelial Cells None /LPF Urine Bacteria 0 /HPF (0-FEW) Urine Mucus Slight /LPF Urine Opiates Screen Neg (NEG) Urine Methadone Screen Neg (NEG) Urine Barbiturates Neg (NEG) Urine Phencyclidine Screen Neg (NEG) Urine Amphetamine/Methamphetamine Neg (NEG) Urine Benzodiazepines Screen Neg (NEG) Urine Cocaine Screen Neg (NEG) Urine Cannabinoids Screen Neg (NEG) Urine Ethyl Alcohol Neg (NEG) Test 06/08/18 12:10 06/08/18 14:08 06/08/18 16:00 06/09/18 03:00 Lactic Acid Level 3.4 mmol/L (0.4-2.0) 1.3 mmol/L (0.4-2.0) Nasal Screen MRSA (PCR) Negative (Negative) Magnesium Level 2.1 mg/dL (1.8-2.4) Troponin I Quantitative 3.339 ng/mL (0.000-0.055) White Blood Count 7.5 x10^3/uL (4.0-11.0) Red Blood Count 3.65 x10^6/uL (4.30-5.70) Hemoglobin 12.5 g/dL (13.0-17.5) Hematocrit 35.4 % (39.0-53.0) Mean Corpuscular Volume 97 fL (79-100) Mean Corpuscular Hemoglobin 34 pg (25-35) Mean Corpuscular Hemoglobin Concent 35 g/dL (31-37) Red Cell Distribution Width 13.4 % (11.5-14.5) Platelet Count 184 x10^3/uL (140-400) Neutrophils (%) (Auto) 73 % (31-73) Lymphocytes (%) (Auto) 13 % (24-48) Monocytes (%) (Auto) 13 % (0-9) Eosinophils (%) (Auto) 1 % (0-3) Basophils (%) (Auto) 1 % (0-3) Neutrophils # (Auto) 5.5 x10^3uL (1.8-7.7) Lymphocytes # (Auto) 1.0 x10^3/uL (1.0-4.8) Monocytes # (Auto) 1.0 x10^3/uL (0.0-1.1) Eosinophils # (Auto) 0.1 x10^3/uL (0.0-0.7) Basophils # (Auto) 0.1 x10^3/uL (0.0-0.2) Sodium Level 141 mmol/L (136-145) Potassium Level 3.6 mmol/L (3.5-5.1) Chloride Level 105 mmol/L (98-107) Carbon Dioxide Level 25 mmol/L (21-32) Anion Gap 11 (6-14) Blood Urea Nitrogen 18 mg/dL (8-26) Creatinine 1.4 mg/dL (0.7-1.3) Estimated GFR (Cockcroft-Gault) 50.1 Glucose Level 112 mg/dL (70-99) Calcium Level 8.7 mg/dL (8.5-10.1) Free Thyroxine 1.10 ng/dL (0.76-1.46) Free Triiodothyronine (T3) pg/mL 1.58 pg/mL (2.18-3.98) Test 06/09/18 08:00 06/09/18 09:03 O2 Saturation 99 % (92-99) 99 % (92-99) Arterial Blood pH 7.48 (7.35-7.45) 7.42 (7.35-7.45) Arterial Blood pCO2 at Patient Temp 28 mmHg (35-46) 35 mmHg (35-46) Arterial Blood pO2 at Patient Temp 213 mmHg (65-108) 214 mmHg (65-108) Arterial Blood HCO3 20 mmol/L (21-28) 22 mmol/L (21-28) Arterial Blood Base Excess -2 mmol/L (-3-3) -2 mmol/L (-3-3) FiO2 40 40 Laboratory Tests Test 06/08/18 12:10 06/08/18 14:08 06/08/18 16:00 06/09/18 03:00 Lactic Acid Level 3.4 mmol/L (0.4-2.0) 1.3 mmol/L (0.4-2.0) Nasal Screen MRSA (PCR) Negative (Negative) Magnesium Level 2.1 mg/dL (1.8-2.4) Troponin I Quantitative 3.339 ng/mL (0.000-0.055) White Blood Count 7.5 x10^3/uL (4.0-11.0) Red Blood Count 3.65 x10^6/uL (4.30-5.70) Hemoglobin 12.5 g/dL (13.0-17.5) Hematocrit 35.4 % (39.0-53.0) Mean Corpuscular Volume 97 fL (79-100) Mean Corpuscular Hemoglobin 34 pg (25-35) Mean Corpuscular Hemoglobin Concent 35 g/dL (31-37) Red Cell Distribution Width 13.4 % (11.5-14.5) Platelet Count 184 x10^3/uL (140-400) Neutrophils (%) (Auto) 73 % (31-73) Lymphocytes (%) (Auto) 13 % (24-48) Monocytes (%) (Auto) 13 % (0-9) Eosinophils (%) (Auto) 1 % (0-3) Basophils (%) (Auto) 1 % (0-3) Neutrophils # (Auto) 5.5 x10^3uL (1.8-7.7) Lymphocytes # (Auto) 1.0 x10^3/uL (1.0-4.8) Monocytes # (Auto) 1.0 x10^3/uL (0.0-1.1) Eosinophils # (Auto) 0.1 x10^3/uL (0.0-0.7) Basophils # (Auto) 0.1 x10^3/uL (0.0-0.2) Sodium Level 141 mmol/L (136-145) Potassium Level 3.6 mmol/L (3.5-5.1) Chloride Level 105 mmol/L (98-107) Carbon Dioxide Level 25 mmol/L (21-32) Anion Gap 11 (6-14) Blood Urea Nitrogen 18 mg/dL (8-26) Creatinine 1.4 mg/dL (0.7-1.3) Estimated GFR (Cockcroft-Gault) 50.1 Glucose Level 112 mg/dL (70-99) Calcium Level 8.7 mg/dL (8.5-10.1) Free Thyroxine 1.10 ng/dL (0.76-1.46) Free Triiodothyronine (T3) pg/mL 1.58 pg/mL (2.18-3.98) Test 06/09/18 08:00 06/09/18 09:03 O2 Saturation 99 % (92-99) 99 % (92-99) Arterial Blood pH 7.48 (7.35-7.45) 7.42 (7.35-7.45) Arterial Blood pCO2 at Patient Temp 28 mmHg (35-46) 35 mmHg (35-46) Arterial Blood pO2 at Patient Temp 213 mmHg (65-108) 214 mmHg (65-108) Arterial Blood HCO3 20 mmol/L (21-28) 22 mmol/L (21-28) Arterial Blood Base Excess -2 mmol/L (-3-3) -2 mmol/L (-3-3) FiO2 40 40 Medications Active Scripts Medications Dose Route/Sig Max Daily Dose Days Date Category Super B Complex (Vitamin B Complex & Vit C No.4) 150 Mg Tablet 150 Mg PO DAILY 06/08/18 Reported Lisinopril 10 Mg Tablet 1 Tab PO DAILY 06/08/18 Reported Aricept (Donepezil Hcl) 10 Mg Tablet 10 Mg PO HS 01/23/18 Reported Zoloft (Sertraline Hcl) 25 Mg Tablet 50 Mg PO DAILY 01/23/18 Reported Atorvastatin Calcium 20 Mg Tablet 20 Mg PO HS 01/23/18 Reported Spironolactone 25 Mg Tablet 25 Mg PO DAILY 01/23/18 Reported Multivitamins (Multivitamin) 1 Each Tablet 1 Tab PO DAILY 08/28/14 Reported Levetiracetam 500 Mg Tablet 2,000 Mg PO BID 11/15/13 Reported Carvedilol 6.25 Mg Tablet 6.25 Mg PO BID 11/15/13 Reported Aspir 81 (Aspirin) 81 Mg Tablet.dr 81 Mg PO DAILY 11/15/13 Reported Impression . 1. Acute respiratory failure secondary to acute encephalopathy and seizure disorder. 2. The patient with seizure disorder, not sure whether he was taking his medication regularly, but had now recurrent tonic-clonic seizure. 3. History of severe cardiomyopathy with an ejection fraction of 15%. Chest x-ray not in congestive heart failure. 4. Fever, ? central .Clinically less likely pneumonia. 5. Increase troponin/ NSTMI 6. Dementia Plan . 1. Doing well on CPAP trial. ABG adequate. will proceed with extubation 2. Follow Neurology recommendations. 3. Nutrition PO in next 24 hrs 4. Lactic acidosis related to seizures , resolved 5. Bronchodilators. 6. DVT prophylaxis. 7. Stress ulcer prophylaxis. 8. Anti-seizure medications per Neurology. 9. Resolved fever. Empiric Abx for now 10.Cardiology consult/rec 11. Discussed with RN and RT and will follow along with you. ANANT DANG MD Jun 09, 2018 09:33
[2018-06-09] MEDS: HALOPERIDOL LACTATE 5 MG/ML VIAL. IVP PRN ×4 (09:48→21:30)
--- NOTE | 2018-06-09 12:11 | PDOC2 ---
CARDIAC CONSULT DATE OF CONSULT Date of Consult DATE: 06/09/18 TIME: 11:51 REASON FOR CONSULT Reason for Consult: elevated troponin REFERRING PHYSICIAN Referring Physician: Dipika SOURCE Source: Caregiver (sisters), Chart review, Patient HISTORY OF PRESENT ILLNESS HISTORY OF PRESENT ILLNESS This is a 72 yo male admitted for noted seizures. Pt follows up with Dr. Urrutia who retired in for cardiology and Dr. Shannon from for seizures. He was noted in his past checked with his neurology from that his Keppra levels were low in 03/2018. There has been no ischemic workup done since he has had his LHC in 2014 to which he was noted with dilated CM. He had his AICD placed in 2016. Currently he just got extubated and pleasant but confused. He lives with his nephew who prepares his medications. His nephew was on his way to give him his meds when he saw him on the bed having tonic clonic seizures. His seizures were sustained till he got medicated in the hospital. Prior to this he has not been having any chest pain, TREJO nor palpitations or dizzy spells. Presently he does not have any CP and tolerating his extubation. I talked to his family and they are very knowledgeable regarding the details of his medical history. PAST MEDICAL HISTORY Cardiovascular: CHF, HTN, Hyperlipidemia, Other (NSVT; NICM) Pulmonary: No pertinent hx CENTRAL NERVOUS SYSTEM: Dementia, Seizure (grand mal) Hepatobiliary: Cholelithiasis Psych: Anxiety, Depression Musculoskeletal: Osteoarthritis PAST SURGICAL HISTORY Past Surgical History: Pacemaker (AICD), Appendectomy, Other (cervcial fusion) SOCIAL HISTORY Smoke: No ALCOHOL: none Drugs: None Lives: with Family CURRENT MEDICATIONS CURRENT MEDICATIONS Current Medications Medications (Trade) Dose Ordered Sig/Mariah Route PRN Reason Start Time Stop Time Status Last Admin Dose Admin Levetiracetam 1000 mg/Dextrose 110 ml @ 440 mls/hr BID IV 06/08/18 21:00 06/09/18 08:35 Albuterol/ Ipratropium (Duoneb) 3 ml RTQID NEB 06/08/18 12:30 06/09/18 08:01 Enoxaparin Sodium (Lovenox 40mg Syringe) 40 mg Q24H SQ 06/08/18 13:00 06/08/18 15:28 Famotidine (Pepcid) 20 mg QHS PO 06/08/18 21:00 06/08/18 21:09 Propofol 100 ml @ 0 mls/hr CONT PRN IV PER PROTOCOL 06/08/18 15:30 06/09/18 04:44 Fentanyl Citrate (Fentanyl 2ml Vial) 25 mcg PRN Q1HR PRN IV PAIN/SEDATION 06/08/18 15:30 06/09/18 07:08 Aspirin (Children'S Aspirin) 81 mg [id number] PO 06/09/18 08:00 06/09/18 08:35 Atorvastatin Calcium (Lipitor) 20 mg HS PO 06/08/18 21:00 06/08/18 21:09 Sertraline HCl (Zoloft) 50 mg DAILY PO 06/09/18 09:00 06/09/18 08:35 Sodium Chloride 1,000 ml @ 100 mls/hr Q10H IV 06/08/18 15:30 06/09/18 05:56 Piperacillin Sod/ Tazobactam Sod 2.25 gm/Sodium Chloride 50 ml @ 100 mls/hr Q6HRS IV 06/08/18 18:00 06/09/18 06:02 Haloperidol Lactate (Haldol Inj) 2 mg PRN Q2HRS PRN IVP AGITATION 06/09/18 09:45 06/09/18 09:48 ALLERGIES ALLERGIES: Coded Allergies: No Known Drug Allergies (Unverified , 08/28/14) ROS Review of System unreliable PHYSICAL EXAM General: Alert, Cooperative, No acute distress HEENT: Atraumatic, Mucous membr. moist/pink Lungs: Other (basilar crackles; post extubation) Heart: Regular rate (SR with intermittent pacing. ), Other (distnat heart sounds) Abdomen: Soft, No tenderness Extremities: Other (trace to 1+) Skin: No breakdown, No significant lesion Psych/Mental Status: Other (confuse but pleasant) MUSCULOSKELETAL: Osteoarthritic changes both hands VITALS VITALS Vital Signs Date Time Temp Pulse Resp B/P (MAP) Pulse Ox O2 Delivery O2 Flow Rate FiO2 06/09/18 08:02 100 Ventilator 06/09/18 07:08 16 06/09/18 07:00 64 105/80 (88) 06/09/18 04:00 98.8 98.8 LABS Lab: Laboratory Tests Test 06/08/18 12:10 06/08/18 14:08 10/15/18 16:00 06/09/18 03:00 Lactic Acid Level 3.4 mmol/L (0.4-2.0) 1.3 mmol/L (0.4-2.0) Nasal Screen MRSA (PCR) Negative (Negative) Magnesium Level 2.1 mg/dL (1.8-2.4) Troponin I Quantitative 3.339 ng/mL (0.000-0.055) White Blood Count 7.5 x10^3/uL (4.0-11.0) Red Blood Count 3.65 x10^6/uL (4.30-5.70) Hemoglobin 12.5 g/dL (13.0-17.5) Hematocrit 35.4 % (39.0-53.0) Mean Corpuscular Volume 97 fL (79-100) Mean Corpuscular Hemoglobin 34 pg (25-35) Mean Corpuscular Hemoglobin Concent 35 g/dL (31-37) Red Cell Distribution Width 13.4 % (11.5-14.5) Platelet Count 184 x10^3/uL (140-400) Neutrophils (%) (Auto) 73 % (31-73) Lymphocytes (%) (Auto) 13 % (24-48) Monocytes (%) (Auto) 13 % (0-9) Eosinophils (%) (Auto) 1 % (0-3) Basophils (%) (Auto) 1 % (0-3) Neutrophils # (Auto) 5.5 x10^3uL (1.8-7.7) Lymphocytes # (Auto) 1.0 x10^3/uL (1.0-4.8) Monocytes # (Auto) 1.0 x10^3/uL (0.0-1.1) Eosinophils # (Auto) 0.1 x10^3/uL (0.0-0.7) Basophils # (Auto) 0.1 x10^3/uL (0.0-0.2) Sodium Level 141 mmol/L (136-145) Potassium Level 3.6 mmol/L (3.5-5.1) Chloride Level 105 mmol/L (98-107) Carbon Dioxide Level 25 mmol/L (21-32) Anion Gap 11 (6-14) Blood Urea Nitrogen 18 mg/dL (8-26) Creatinine 1.4 mg/dL (0.7-1.3) Estimated GFR (Cockcroft-Gault) 50.1 Glucose Level 112 mg/dL (70-99) Calcium Level 8.7 mg/dL (8.5-10.1) Free Thyroxine 1.10 ng/dL (0.76-1.46) Free Triiodothyronine (T3) pg/mL 1.58 pg/mL (2.18-3.98) Test 06/09/18 08:00 06/09/18 09:03 O2 Saturation 99 % (92-99) 99 % (92-99) Arterial Blood pH 7.48 (7.35-7.45) 7.42 (7.35-7.45) Arterial Blood pCO2 at Patient Temp 28 mmHg (35-46) 35 mmHg (35-46) Arterial Blood pO2 at Patient Temp 213 mmHg (65-108) 214 mmHg (65-108) Arterial Blood HCO3 20 mmol/L (21-28) 22 mmol/L (21-28) Arterial Blood Base Excess -2 mmol/L (-3-3) -2 mmol/L (-3-3) FiO2 40 40 ECHOCARDIOGRAM ECHOCARDIOGRAM <Conclusion> Left ventricle systolic function severely impaired. The Ejection Fraction is estimated at 15% The Left Ventricle is mildly dilated. The left atrium is mildly dilated. Doppler and Color Flow revealed mild mitral regurgitation. Doppler and Color Flow revealed mild tricuspid regurgitation. The PA pressure was estimated at 54 mmHg. There is no evidence of significant pericardial effusion. DATE: 08/29/14 1532 STRESS TEST STRESS TEST Conclusion 1. A medium in size and moderate in intensity fixed inferior wall defect appreciated. 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 2. Ejection fraction documented to be 22% with severe global hypokinesis noted on gated SPECT images. 3. Abnormal nuclear imaging scan. 4. Findings consistent with a low to intermediate risk scan. DATE: 08/29/14 1250 HEART CATH HEART CATH Conclusion Normal left main coronary artery. No significant intraluminal coronary artery disease appreciated. Severe left ventricular dysfunction with visually estimated ejection fraction of 15-20%. Left ventricular end-diastolic pressure of 12 mmHg. Recommendations Medical Therapy DATE: 09/20/14 1142 ASSESSMENT/PLAN ASSESSMENT/PLAN 1. Status epilepticus with hx of seizures: neurology following 2. Acute respiratory failure: vent, pulmonary following. Post vent and tolerating extubation 3. NSTEMI: troponin 3.3. Possibly from above, demand mediated. No cardiac symptoms prehospital. EKG SR/LVH with more prominent T wave inversion by comparison otherwise no other changes. 4. Metabolic/hypoxic encephalopathy 5. Chronic systolic CHF: no vascular congestion, compensated. 6. Hx of NICM (dilated CM) with past hx of NSVT. Last [facility] 2014 with no CAD. 7. AICD: ([facility]) 8. Hypothyroidism 9. HTN: controlled 10. HLP 11. Suspect CKD3 Recommendations 1. Possibility of ischemia leading to seizure vs vice versa. TTE. ASA. Will place on heparin drip if ok with neurology. Repeat EKG, trend troponin. 2. Will interrogate device and note any associated arrhythmias 3. Will obtain records from [facility] 4. Restart secondary prevention measures once PO is allowed 5. Wanting to establish cardiology care with our group since Dr. Urrutia retired and will plan for outpt F/U. Also would like to see Dr. Adal Simon again for PCP as an outpt per family. RASHMI DIAZ LIVESTOCK SPECULATOR Jun 09, 2018 12:11
[2018-06-09] MEDS ORDERED: HEPARIN for IV BOLUS 10,000 UNIT/10 ML VIAL. IV PRN (12:15)
--- NOTE | 2018-06-09 12:26 | EKG ---
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
[2018-06-09] MEDS ORDERED: ANTI-COAG MONITOR BY PHARMACY. MC PRN (12:30)
--- NOTE | 2018-06-09 13:54 | PDOC ---
PROGRESS NOTES Assessment Assessment Status epilepticus. Seizure. Metabolic encephalopathy. Respiratory failure. Lactic acidosis. NSTEMI likely. DM? Cerebral capillary telangiectasia? HTN. HLD. Hypothyroidism. Pacemaker in site. RECOMMENDATIONS/PLAN: Keppra 1000 mg IV q12h. Fosphenytoin administrated in ER. EEG performed. Treat NSTEMI per cardiology. MRI not obtained due to pacemaker. Discussed with his sisters at bedside on 06/09/18. HISTORY OF THE PRESENT ILLNESS: 72-y-old patient with Hx of seizure and has been treated with Keppra. He had mental status changes, unresponsiveness and convulsions noted byt his family to be brought to the ER of [facility]. He was intubated in the ER due to unable to maintain upper airway from seizing. Phenytoin was administrated in the ER to control his convulsion. No seizures over night. Extubated on 06/09/18. Past Medical History Cardiovascular: HTN, Hyperlipidemia Pulmonary: No pertinent hx CENTRAL NERVOUS SYSTEM: Seizure GI: No pertinent hx Heme/Onc: No pertinent hx Hepatobiliary: No pertinent hx Psych: No pertinent hx Rheumatologic: No pertinent hx Infectious disease: No pertinent hx Renal/: No pertinent hx Endocrine: No pertinent hx Past Surgical History Appendectomy Family History Unknown Social History Smoke: No ALCOHOL: none Drugs: None ALLERGY: Reviewed. MEDICATIONS: Refer to [facility] REVIEW OF SYSTEMS: Constitutional: No malnutrition, weight loss, cachexia. Head: No recent traumatic brain or head injury. Skin: No edema, or rash. Ear: No infection. Eyes: No vision loss or color blindness. Nose: No bleeding or purulent discharges. Hearing: Hearing decrease. Neck: No injury. Cardiac: Pacemaker Placement, HTN, HLD. Pulmonary: No COPD. GI: No GI ulcer, GI bleeding. Urinary/genital: UTI. Endocrinologic: Diabetes Mellitus? Skeletomuscular: No muscular atrophy, deformity. Neurological: see HP. Psychiatric: Denies drug use/abuse. Otherwise, not [id number] review of systems. PHYSICAL EXAMINATION: General appearance is in acute distress. HEENT: Normocephalic and nontraumatic. Eyes, nose, ears, and throat are unremarkable. Neck is supple. No lymphadenopathy.No crepitus. Cardiovascular: S1, S2, regular rate and rhythm. Pulmonary: On vent. Abdomen: Bowel sounds are positive. Extremities: No rash, lesions, or edema. No restriction of range of motion NEUROLOGICAL EXAMINATION: Off vent. Not oriented to time, place but knew his family members at bedside. PERRL. EOMI. CN: no acute focal findings. Muscle tone: WNL. Muscle strength: 4+ DTR: 1-2 Plantar reflex: Extensor response in right side. Neutral response in left side. Gait: Not examined in bed. Sensory exam: no abnormal findings. No cerebellar signs elicited. F-T-N test not performed due to not follow commands. Objective Objective Vital Signs Date Time Temp Pulse Resp B/P (MAP) Pulse Ox O2 Delivery O2 Flow Rate FiO2 06/09/18 12:44 95 Room Air 06/09/18 07:08 16 06/09/18 07:00 64 105/80 (88) 06/09/18 04:00 98.8 98.8 Intake and Output 06/09/18 07:00 Intake Total 4996 ml Output Total 1330 ml Balance 3666 ml Intake IV Total 4065 ml Tube Feeding 631 ml Other 300 ml Output Urine Total 1330 ml Gastric Drainage Total 0 ml Vitals Signs Vitals VS - Last 72 Hours, by Label Date Time Temp Pulse Resp B/P (MAP) Pulse Ox O2 Delivery O2 Flow Rate FiO2 06/09/18 12:44 95 Room Air 06/09/18 08:02 100 Ventilator 06/09/18 08:00 Mechanical Ventilator 06/09/18 07:08 16 Ventilator 06/09/18 07:00 64 16 105/80 (88) 100 Ventilator 06/09/18 06:00 68 16 105/74 (84) 100 Ventilator 06/09/18 05:55 100 Ventilator 06/09/18 05:00 64 16 96/68 (77) 100 Ventilator 06/09/18 04:00 98.8 67 16 86/69 (75) 100 Ventilator 98.8 06/09/18 04:00 Mechanical Ventilator 06/09/18 03:24 100 Ventilator 06/09/18 03:00 69 16 91/66 (74) 100 Ventilator 06/09/18 02:00 67 16 98/64 (75) 100 Ventilator 06/09/18 01:02 100 Ventilator 06/09/18 01:00 62 16 92/58 (69) 100 Ventilator 06/08/18 23:59 98.5 65 16 95/65 (75) 100 Ventilator 98.5 06/08/18 23:59 Mechanical Ventilator 06/08/18 23:45 72 16 117/86 (96) 100 Ventilator 06/08/18 23:42 100 Ventilator 18 23:30 62 16 122/81 (95) 100 Ventilator 18 23:15 66 16 112/78 (89) 100 Ventilator 18 23:00 62 16 127/76 (93) 100 Ventilator 18 22:00 64 16 118/76 (90) 100 Ventilator 18 21:00 100 Ventilator 18 21:00 65 16 90/50 (63) 100 Ventilator 18 20:00 Mechanical Ventilator 18 20:00 99.5 72 16 99/56 (70) 100 Ventilator 99.5 06/08/18 19:42 100 Ventilator 06/08/18 19:00 66 16 104/75 (85) 100 Ventilator 06/08/18 18:00 74 16 93/72 (79) Ventilator 06/08/18 17:30 66 16 105/76 (86) 100 Ventilator 06/08/18 17:00 66 16 106/67 (80) Ventilator 06/08/18 16:30 100.4 66 16 105/71 (82) Ventilator 100.4 06/08/18 16:25 100 Ventilator 06/08/18 16:22 16 Ventilator 06/08/18 16:00 64 16 101/72 (82) 100 Ventilator 06/08/18 16:00 Mechanical Ventilator 06/08/18 15:52 16 Ventilator 06/08/18 15:30 66 16 104/75 (85) Ventilator 06/08/18 15:00 68 16 104/71 (82) Ventilator 18 14:30 64 16 100/61 (74) Ventilator 18 14:00 64 16 104/70 (81) 100 Ventilator 06/08/18 13:30 64 16 104/70 (81) Ventilator 18 13:30 100 Ventilator 18 13:00 64 16 106/75 (85) Ventilator 18 12:30 Mechanical Ventilator 18 12:30 64 16 100/70 (80) Ventilator 18 12:00 60 16 97/68 (78) 100 Ventilator 18 11:38 100 Ventilator 06/08/18 11:30 60 16 98/62 (74) Ventilator 06/08/18 11:00 99.5 80 16 90/58 (69) Ventilator 99.5 06/08/18 10:40 70 16 100 06/08/18 10:36 68 16 100 06/08/18 10:27 60 16 100 06/08/18 10:22 60 16 100 06/08/18 10:16 60 16 100 06/08/18 10:16 60 16 100 06/08/18 10:09 60 16 99 06/08/18 09:47 78 16 99 06/08/18 09:42 88 16 97 06/08/18 09:37 84 16 97 06/08/18 09:32 78 16 100 06/08/18 09:27 88 16 100 06/08/18 09:22 82 16 100 06/08/18 09:17 84 16 100 06/08/18 09:12 86 16 99 06/08/18 09:07 88 16 100 06/08/18 09:02 92 16 100 06/08/18 08:58 100 16 100 06/08/18 08:45 100 Ventilator 06/08/18 08:41 96 16 99 06/08/18 08:29 99.7 117 20 136/94 (108) 98 Bag Valve Mask 99.7 Laboratory Laboratory Laboratory Tests Test 06/08/18 14:08 06/08/18 16:00 06/09/18 03:00 06/09/18 08:00 Nasal Screen MRSA (PCR) Negative (Negative) Magnesium Level 2.1 mg/dL (1.8-2.4) Troponin I Quantitative 3.339 ng/mL (0.000-0.055) White Blood Count 7.5 x10^3/uL (4.0-11.0) Red Blood Count 3.65 x10^6/uL (4.30-5.70) Hemoglobin 12.5 g/dL (13.0-17.5) Hematocrit 35.4 % (39.0-53.0) Mean Corpuscular Volume 97 fL (79-100) Mean Corpuscular Hemoglobin 34 pg (25-35) Mean Corpuscular Hemoglobin Concent 35 g/dL (31-37) Red Cell Distribution Width 13.4 % (11.5-14.5) Platelet Count 184 x10^3/uL (140-400) Neutrophils (%) (Auto) 73 % (31-73) Lymphocytes (%) (Auto) 13 % (24-48) Monocytes (%) (Auto) 13 % (0-9) Eosinophils (%) (Auto) 1 % (0-3) Basophils (%) (Auto) 1 % (0-3) Neutrophils # (Auto) 5.5 x10^3uL (1.8-7.7) Lymphocytes # (Auto) 1.0 x10^3/uL (1.0-4.8) Monocytes # (Auto) 1.0 x10^3/uL (0.0-1.1) Eosinophils # (Auto) 0.1 x10^3/uL (0.0-0.7) Basophils # (Auto) 0.1 x10^3/uL (0.0-0.2) Sodium Level 141 mmol/L (136-145) Potassium Level 3.6 mmol/L (3.5-5.1) Chloride Level 105 mmol/L (98-107) Carbon Dioxide Level 25 mmol/L (21-32) Anion Gap 11 (6-14) Blood Urea Nitrogen 18 mg/dL (8-26) Creatinine 1.4 mg/dL (0.7-1.3) Estimated GFR (Cockcroft-Gault) 50.1 Glucose Level 112 mg/dL (70-99) Lactic Acid Level 1.3 mmol/L (0.4-2.0) Calcium Level 8.7 mg/dL (8.5-10.1) Creatine Kinase 736 U/L (39-308) Free Thyroxine 1.10 ng/dL (0.76-1.46) Free Triiodothyronine (T3) pg/mL 1.58 pg/mL (2.18-3.98) O2 Saturation 99 % (92-99) Arterial Blood pH 7.48 (7.35-7.45) Arterial Blood pCO2 at Patient Temp 28 mmHg (35-46) Arterial Blood pO2 at Patient Temp 213 mmHg (65-108) Arterial Blood HCO3 20 mmol/L (21-28) Arterial Blood Base Excess -2 mmol/L (-3-3) FiO2 40 Test 06/09/18 09:03 O2 Saturation 99 % (92-99) Arterial Blood pH 7.42 (7.35-7.45) Arterial Blood pCO2 at Patient Temp 35 mmHg (35-46) Arterial Blood pO2 at Patient Temp 214 mmHg (65-108) Arterial Blood HCO3 22 mmol/L (21-28) Arterial Blood Base Excess -2 mmol/L (-3-3) FiO2 40 Microbiology 06/08/18 Blood Culture - Preliminary, Resulted NO GROWTH AFTER 1 DAY Medication Medications Current Medications Aspirin (Children'S Aspirin) 81 mg DAILYWBKFT PO Last administered on at 08:35; Start 06/09/18 at 08:00 Atorvastatin Calcium (Lipitor) 20 mg HS PO Last administered on 06/08/18at 21: 09; Start 06/08/18 at 21:00 Famotidine (Pepcid) 20 mg QHS PO Last administered on 06/08/18 21:09; Start 06/08/18 at 21:00 Fentanyl Citrate (Fentanyl 2ml Vial) 25 mcg PRN Q1HR PRN IV PAIN/SEDATION Last administered on 06/09/18at 07:08; Start 06/08/18 at 15:30 Haloperidol Lactate (Haldol Inj) 2 mg PRN Q2HRS PRN IVP AGITATION Last administered on 06/09/18at 09:48; Start 06/09/18 at 09:45 Heparin Sodium (Porcine) (Heparin Sodium) 1,800 unit PRN Q6HRS PRN IV FOR UFH LEVEL LESS THAN 0.2; Start 06/09/18 at 12:15 Heparin Sodium/ Dextrose 500 ml @ 0 mls/hr CONT PRN IV SEE I/O RECORD; Start 06/09/18 at 15:00 Info (Anti-Coagulation Monitoring By Pharmacy) 1 each PRN DAILY PRN MC SEE COMMENTS; Start 06/09/18 at 12:30 Levetiracetam 1000 mg/Dextrose 110 ml @ 440 mls/hr BID IV Last administered on 06/09/18at 08:35; Start 06/08/18 at 21:00 Piperacillin Sod/ Tazobactam Sod (Zosyn Per Pharmacy) 1 each PRN DAILY PRN MC SEE COMMENTS; Start 06/08/18 at 15:30 Piperacillin Sod/ Tazobactam Sod 2.25 gm/Sodium Chloride 50 ml @ 100 mls/hr Q6HRS IV Last administered on 06/09/18at 12:37; Start 06/08/18 at 18:00; Stop 06/09/18 at 12:44; Status DC Piperacillin Sod/ Tazobactam Sod 3.375 gm/Sodium Chloride 50 ml @ 100 mls/hr Q6HRS IV ; Start 06/08/18 at 18:00; Status UNV Piperacillin Sod/ Tazobactam Sod 3.375 gm/Sodium Chloride 50 ml @ 100 mls/hr Q6HRS IV ; Start 06/09/18 at 18:00 Propofol 100 ml @ 0 mls/hr CONT PRN IV PER PROTOCOL Last administered on at 04:44; Start 06/08/18 at 15:30 Sertraline HCl (Zoloft) 50 mg DAILY PO Last administered on 06/09/18at 08:35; Start 06/09/18 at 09:00 Sodium Chloride 1,000 ml @ 100 mls/hr Q10H IV Last administered on 06/09/18at 05:56; Start 06/08/18 at 15:30 Comment Review of Relevant I have reviewed the following items sharee (where applicable) has been applied. PITO SUMNER MD Jun 09, 2018 13:54
--- NOTE | 2018-06-09 14:48 | CARD ---
MR#: [id number] Date of Study: 06/09/2018 Ordering Physician: MARCIA MCCLURE, Referring Physician: MARCIA MCCLURE, Tech: Shweta Covarrubias APPROVED REPORT EXAM: Two-dimensional and M-mode echocardiogram with Doppler and color Doppler. Other Information Quality : AverageHR: 68bpm Rhythm : NSR INDICATION Congestive Heart Failure Surgery/Intervention Pacemaker: 2D DIMENSIONS RVDd3.0 (2.9-3.5cm)Left Atrium(2D)4.8 (1.6-4.0cm) IVSd1.1 (0.7-1.1cm)Aortic Root(2D)3.1 (2.0-3.7cm) LVDd6.5 (3.9-5.9cm)LVOT Diameter2.1 (1.8-2.4cm) PWd1.1 (0.7-1.1cm)LVDs5.1 (2.5-4.0cm) FS (%) 21.0 %SV90.3 ml Aortic Valve AoV Peak Jonathon.151.6cm/sAoV VTI32.4cm AO Peak GR.9.2mmHgLVOT VTI 19.08cm AO Mean GR.4mmHg Mitral Valve MV E Oaewbqiw99.8cm/sMV DECEL [id number] MV A Pxmpprpw45.7cm/sE/A Ratio0.9 TDI Lateral E' P. V5.86cm/sMedial E' P. V4.63cm/s E/Lateral E'15.3E/Medial E'19.4 Tricuspid Valve TR P. Nidsuyof366ra/sRAP [id number] TR Peak Gr.51rhCmRZJU63mqMg Pulmonary Vein S1 Ysmyjjsg32.8cm/sS2 Yvacsjwf50.15cm/s D2 Imzhzqaa70.1cm/s LEFT VENTRICLE The Left Ventricle is mildly dilated. There is borderline concentric left ventricular hypertrophy. Th e left ventricular systolic function is severely impaired. The Ejection Fraction is 20-25%. There is global hypokinesis of the left ventricle. Transmitral Doppler flow pattern is Grade I-abnormal relaxa tion pattern. RIGHT VENTRICLE The right ventricle is normal size. There is normal right ventricular wall thickness. Pacer wire note d in right atrium and right ventricle. ATRIA The left atrium is mildly dilated. The right atrium size is normal. The interatrial septum is intact with no evidence for an atrial septal defect or patent foramen ovale as noted on 2-D or Doppler imagi ng. AORTIC VALVE The aortic valve is not well visualized. Doppler and Color Flow revealed trace aortic regurgitation. There is no significant aortic valvular stenosis. MITRAL VALVE The mitral valve is mildly thickened. There is no mitral valve stenosis. Doppler and Color-flow revea led trace mitral regurgitation. TRICUSPID VALVE The tricuspid valve is not well visualized. Doppler and Color Flow revealed mild tricuspid regurgitat ion. There is no tricuspid valve stenosis. PULMONIC VALVE The pulmonic valve is not well visualized. Doppler and Color Flow revealed trace pulmonic valvular re gurgitation. GREAT VESSELS The aortic root is normal in size. Normal pulmonary venous flow (Doppler). PERICARDIAL EFFUSION There is no evidence of significant pericardial effusion. Critical Notification Critical Value: No <Conclusion> The left ventricular systolic function is severely impaired. The Ejection Fraction is 20-25%. Pacer wire noted in right atrium and right ventricle. Doppler and Color Flow revealed mild tricuspid regurgitation. There is no evidence of significant pericardial effusion. Signed by : Lance Sue, Electronically Approved : 06/09/2018 14:47:10
[2018-06-09] MEDS: HEPARIN 25,000UTS/500ML PREMIX 500 ML IV PRN (15:09)
[2018-06-09] MEDS ORDERED: PIPERACILLIN/TAZOBACTAM 3.375 GM in IV NORMAL SALINE 50ML 50 ML IV SCH (18:00)
[2018-06-09] MEDS ORDERED: IV NORMAL SALINE 500ML BAG 500 ML IV PRN (19:00)
[2018-06-09] MEDS ORDERED: ATROPINE 0.5 MG/5 ML DISP.SYRINGE. IV PRN (19:00)
[2018-06-09] MEDS: DEXMEDETOMIDINE 200 MCG in IV NORMAL SALINE 50ML 48 ML IV PRN (19:11)
--- NOTE | 2018-06-09 20:19 | EEG ---
DATE OF SERVICE: 06/08/2018 EEG NUMBER: [id number] OBJECTIVE: This is a 72-year-old male patient with history of seizure. He had seizures on 06/07/2018 went to status epilepticus. EEG was performed the next day after treatment to evaluate seizure activity. METHODS: Twenty electrodes were applied according to the international 10-20 electrode placement system. EKG monitoring, hyperventilation, intermittent photic stimulation, monopolar and bipolar montages were routinely utilized. The record was obtained on a digital system with video monitoring. MEDICATIONS: Phenytoin and Keppra. FINDINGS: 1. Background: The patient was recorded in the awake and drowsy states. No sleep state was recorded. The overall background amplitude is 5-15 microvolts. No clear posterior dominant rhythm is observed. The overall background rhythm is with fast activity in the beta frequency throughout the entire recording. 2. Abnormalities: No specific epileptiform discharge or electrographic seizure is seen. No focal or diffuse slowing. 3. Activation: Hyperventilation was not performed because the patient was not able to follow commands. Intermittent photic stimulation was performed with photic driving. IMPRESSION: This EEG falls into the abnormal category of the study for the awake and drowsy states. No clear posterior dominant rhythm is observed. The overall background rhythm is with fast activity in the beta frequency throughout the entire recording. No focal, lateralizing, specific epileptiform discharge or electrographic seizure is seen. PITO SUMNER MD DR: DENISSE/pat JOB#: [id number] / [id number] JAELYN
[2018-06-09] MEDS: ATORVASTATIN CALCIUM 20 MG TABLET PO SCH (21:00)
[2018-06-09] MEDS: FAMOTIDINE 20 MG TABLET. PO SCH (21:00)
[2018-06-09] MEDS ORDERED: VANCOMYCIN PER PHARMACY MC PRN (21:30)
[2018-06-09] MEDS ORDERED: PIP/TAZO PER PHARMACY MC PRN (21:30)
[2018-06-09] MEDS ORDERED: VANCOMYCIN 1.75 GM in IV NORMAL SALINE 500ML BAG 500 ML IV ONE (22:00)
[2018-06-10] VITALS (21 sets, daily range): BP systolic 83–141; BP diastolic 56–95
[2018-06-10] MEDS ORDERED: PIPERACILLIN/TAZOBACTAM 3.375 GM in IV NORMAL SALINE 50ML 50 ML IV SCH ×2
[2018-06-10] MEDS: HALOPERIDOL LACTATE 5 MG/ML VIAL. IVP PRN ×4 (00:24→16:16)
[2018-06-10] MEDS: DEXMEDETOMIDINE 200 MCG in IV NORMAL SALINE 50ML 48 ML IV PRN ×2 (00:26→09:01)
[2018-06-10] MEDS: fentaNYL PF VIAL 100 MCG/2 ML VIAL IV PRN ×4 (00:26→16:16)
[2018-06-10] MEDS: IV NORMAL SALINE 1000ML BAG 1,000 ML IV SCH ×2 (00:28→07:30)
--- NOTE | 2018-06-10 07:17 | PDOC ---
PROGRESS NOTES Chief Complaint Chief Complaint Seizure Respiratory failure, hypoxia History of Present Illness History of Present Illness Patient is a 72 year old male who presents with seizure. resident caregiver found him seizing 06/08/18, unresponsive and called EMS. He was dced here 4 months ago for seizure, takes keppra for now. Pt seen in ICU, extubated 06/09. EEG bedside in ICU 06/08 Overnight became agitated, not responsive to redirection, haldol, was started on precedex with good effect. Still not awake enough to work with RENAL DIALYSIS RN. A/P: epilepy status - initially requiring intubated, cont keppra, consult neuro acute resp failure with seizure - intubated for hypoxia with seizure, s/p extubation 06/09 AMS, with seizure - has baseline dementia, he is not back to his baseline per family, possibly ICU delerium, will add zyprexa IM 5mg BID prn for agitation JESE, vasomotor - likely from seizure, fluids lactate acidosis - likely seizure related, was given zosyn for possible aspiration, off antibiotics now, no further fevers elevated troponin - with h/o CHF consulted cardiology, trended down hypotension - improved, off levophed h/o Systolic CHF - consulted cardiology Dementia - light during day. Family nearby. Zyprexa IM or oral haldol prn agitation. wean precedex as tolerated HTN - hold meds for now HLD - hold stating until taking PO h/o epilepsy - having trouble with meds, cont keppra PPM - interrogate today depression - related to dementia plan: neuro, pulm consult, cardiology consult ICU care, can consider downgrade in the next 24 hours NPO, add IVF - will get RENAL DIALYSIS RN eval when more awake, PPN for now dvt, gi ppx on keppra iv bid labs daily Vitals Vitals Vital Signs Date Time Temp Pulse Resp B/P (MAP) Pulse Ox O2 Delivery O2 Flow Rate FiO2 06/10/18 06:00 60 21 127/85 (99) 100 Room Air 06/10/18 04:00 98.2 98.2 Physical Exam General: Alert, Cooperative, mild distress Heart: Regular rate, Normal S1, Normal S2 Lungs: Other (rhonchi right lung) Abdomen: Normal bowel sounds, Soft, No tenderness Extremities: No clubbing, No cyanosis, No edema Skin: No rashes, No significant lesion Labs LABS Laboratory Tests Test 06/09/18 08:00 06/09/18 09:03 06/09/18 14:50 06/09/18 20:45 O2 Saturation 99 % (92-99) 99 % (92-99) Arterial Blood pH 7.48 (7.35-7.45) 7.42 (7.35-7.45) Arterial Blood pCO2 at Patient Temp 28 mmHg (35-46) 35 mmHg (35-46) Arterial Blood pO2 at Patient Temp 213 mmHg (65-108) 214 mmHg (65-108) Arterial Blood HCO3 20 mmol/L (21-28) 22 mmol/L (21-28) Arterial Blood Base Excess -2 mmol/L (-3-3) -2 mmol/L (-3-3) FiO2 40 40 Troponin I Quantitative 1.106 ng/mL (0.000-0.055) Heparin Anti-Xa Act, Unfractionated 0.21 IU/mL (0.30-0.70) Test 06/10/18 05:50 Heparin Anti-Xa Act, Unfractionated 0.57 IU/mL (0.30-0.70) Comment Review of Relevant I have reviewed the following items sharee (where applicable) has been applied. Labs Laboratory Tests Test 06/08/18 08:32 06/08/18 08:33 06/08/18 08:43 06/08/18 08:47 Glucose (Fingerstick) 185 mg/dL (70-99) White Blood Count 8.0 x10^3/uL (4.0-11.0) Red Blood Count 4.30 x10^6/uL (4.30-5.70) Hemoglobin 14.6 g/dL (13.0-17.5) Hematocrit 42.2 % (39.0-53.0) Mean Corpuscular Volume 98 fL (79-100) Mean Corpuscular Hemoglobin 34 pg (25-35) Mean Corpuscular Hemoglobin Concent 35 g/dL (31-37) Red Cell Distribution Width 13.4 % (11.5-14.5) Platelet Count 251 x10^3/uL (140-400) Neutrophils (%) (Auto) 75 % (31-73) Lymphocytes (%) (Auto) 17 % (24-48) Monocytes (%) (Auto) 7 % (0-9) Eosinophils (%) (Auto) 1 % (0-3) Basophils (%) (Auto) 1 % (0-3) Neutrophils # (Auto) 6.0 x10^3uL (1.8-7.7) Lymphocytes # (Auto) 1.4 x10^3/uL (1.0-4.8) Monocytes # (Auto) 0.5 x10^3/uL (0.0-1.1) Eosinophils # (Auto) 0.1 x10^3/uL (0.0-0.7) Basophils # (Auto) 0.0 x10^3/uL (0.0-0.2) Prothrombin Time 13.3 SEC (11.7-14.0) Prothromb Time International Ratio 1.1 (0.8-1.1) Sodium Level 134 mmol/L (136-145) Potassium Level 4.5 mmol/L (3.5-5.1) Chloride Level 96 mmol/L (98-107) Carbon Dioxide Level 17 mmol/L (21-32) Anion Gap 21 (6-14) Blood Urea Nitrogen 23 mg/dL (8-26) Creatinine 2.0 mg/dL (0.7-1.3) Estimated GFR (Cockcroft-Gault) 33.2 BUN/Creatinine Ratio 12 (6-20) Glucose Level 203 mg/dL (70-99) Lactic Acid Level 13.1 mmol/L (0.4-2.0) Calcium Level 10.0 mg/dL (8.5-10.1) Total Bilirubin 1.1 mg/dL (0.2-1.0) Aspartate Amino Transf (AST/SGOT) 50 U/L (15-37) Alanine Aminotransferase (ALT/SGPT) 59 U/L (16-63) Alkaline Phosphatase 90 U/L (46-116) Creatine Kinase 299 U/L (39-308) Troponin I Quantitative 0.350 ng/mL (0.000-0.055) Total Protein 8.1 g/dL (6.4-8.2) Albumin 3.9 g/dL (3.4-5.0) Albumin/Globulin Ratio 0.9 (1.0-1.7) Procalcitonin 0.17 ng/mL (0.00-0.10) Thyroid Stimulating Hormone (TSH) 4.422 uIU/mL (0.358-3.74) Ethyl Alcohol Level < 10 mg/dL (0-10) O2 Saturation 99 % (92-99) Arterial Blood pH 7.34 (7.35-7.45) Arterial Blood pCO2 at Patient Temp 37 mmHg (35-46) Arterial Blood pO2 at Patient Temp 418 mmHg (65-108) Arterial Blood HCO3 19 mmol/L (21-28) Arterial Blood Base Excess -6 mmol/L (-3-3) FiO2 80 Urine Collection Type U cath Urine Color Yellow Urine Clarity Cloudy Urine pH 6.0 Urine Specific [place] 1.015 Urine Protein 100 mg/dL (NEG-TRACE) Urine Glucose (UA) Negative mg/dL (NEG) Urine Ketones (Stick) Negative mg/dL (NEG) Urine Blood Negative (NEG) Urine Nitrite Negative (NEG) Urine Bilirubin Negative (NEG) Urine Urobilinogen Dipstick 1.0 mg/dL (0.2 mg/dL) Urine Leukocyte Esterase Negative (NEG) Urine RBC 0 /HPF (0-2) Urine WBC 0 /HPF (0-4) Urine Squamous Epithelial Cells None /LPF Urine Bacteria 0 /HPF (0-FEW) Urine Mucus Slight /LPF Urine Opiates Screen Neg (NEG) Urine Methadone Screen Neg (NEG) Urine Barbiturates Neg (NEG) Urine Phencyclidine Screen Neg (NEG) Urine Amphetamine/Methamphetamine Neg (NEG) Urine Benzodiazepines Screen Neg (NEG) Urine Cocaine Screen Neg (NEG) Urine Cannabinoids Screen Neg (NEG) Urine Ethyl Alcohol Neg (NEG) Test 06/08/18 12:10 06/08/18 14:08 06/08/18 16:00 06/09/18 03:00 Lactic Acid Level 3.4 mmol/L (0.4-2.0) 1.3 mmol/L (0.4-2.0) Nasal Screen MRSA (PCR) Negative (Negative) Magnesium Level 2.1 mg/dL (1.8-2.4) Troponin I Quantitative 3.339 ng/mL (0.000-0.055) 2.039 ng/mL (0.000-0.055) White Blood Count 7.5 x10^3/uL (4.0-11.0) Red Blood Count 3.65 x10^6/uL (4.30-5.70) Hemoglobin 12.5 g/dL (13.0-17.5) Hematocrit 35.4 % (39.0-53.0) Mean Corpuscular Volume 97 fL (79-100) Mean Corpuscular Hemoglobin 34 pg (25-35) Mean Corpuscular Hemoglobin Concent 35 g/dL (31-37) Red Cell Distribution Width 13.4 % (11.5-14.5) Platelet Count 184 x10^3/uL (140-400) Neutrophils (%) (Auto) 73 % (31-73) Lymphocytes (%) (Auto) 13 % (24-48) Monocytes (%) (Auto) 13 % (0-9) Eosinophils (%) (Auto) 1 % (0-3) Basophils (%) (Auto) 1 % (0-3) Neutrophils # (Auto) 5.5 x10^3uL (1.8-7.7) Lymphocytes # (Auto) 1.0 x10^3/uL (1.0-4.8) Monocytes # (Auto) 1.0 x10^3/uL (0.0-1.1) Eosinophils # (Auto) 0.1 x10^3/uL (0.0-0.7) Basophils # (Auto) 0.1 x10^3/uL (0.0-0.2) Sodium Level 141 mmol/L (136-145) Potassium Level 3.6 mmol/L (3.5-5.1) Chloride Level 105 mmol/L (98-107) Carbon Dioxide Level 25 mmol/L (21-32) Anion Gap 11 (6-14) Blood Urea Nitrogen 18 mg/dL (8-26) Creatinine 1.4 mg/dL (0.7-1.3) Estimated GFR (Cockcroft-Gault) 50.1 Glucose Level 112 mg/dL (70-99) Calcium Level 8.7 mg/dL (8.5-10.1) Creatine Kinase 736 U/L (39-308) Free Thyroxine 1.10 ng/dL (0.76-1.46) Free Triiodothyronine (T3) pg/mL 1.58 pg/mL (2.18-3.98) Test 06/09/18 08:00 06/09/18 09:03 06/09/18 14:50 06/09/18 20:45 O2 Saturation 99 % (92-99) 99 % (92-99) Arterial Blood pH 7.48 (7.35-7.45) 7.42 (7.35-7.45) Arterial Blood pCO2 at Patient Temp 28 mmHg (35-46) 35 mmHg (35-46) Arterial Blood pO2 at Patient Temp 213 mmHg (65-108) 214 mmHg (65-108) Arterial Blood HCO3 20 mmol/L (21-28) 22 mmol/L (21-28) Arterial Blood Base Excess -2 mmol/L (-3-3) -2 mmol/L (-3-3) FiO2 40 40 Troponin I Quantitative 1.106 ng/mL (0.000-0.055) Heparin Anti-Xa Act, Unfractionated 0.21 IU/mL (0.30-0.70) Test 06/10/18 05:50 Heparin Anti-Xa Act, Unfractionated 0.57 IU/mL (0.30-0.70) Laboratory Tests Test 06/09/18 08:00 06/09/18 09:03 06/09/18 14:50 06/09/18 20:45 O2 Saturation 99 % (92-99) 99 % (92-99) Arterial Blood pH 7.48 (7.35-7.45) 7.42 (7.35-7.45) Arterial Blood pCO2 at Patient Temp 28 mmHg (35-46) 35 mmHg (35-46) Arterial Blood pO2 at Patient Temp 213 mmHg (65-108) 214 mmHg (65-108) Arterial Blood HCO3 20 mmol/L (21-28) 22 mmol/L (21-28) Arterial Blood Base Excess -2 mmol/L (-3-3) -2 mmol/L (-3-3) FiO2 40 40 Troponin I Quantitative 1.106 ng/mL (0.000-0.055) Heparin Anti-Xa Act, Unfractionated 0.21 IU/mL (0.30-0.70) Test 06/10/18 05:50 Heparin Anti-Xa Act, Unfractionated 0.57 IU/mL (0.30-0.70) Microbiology 06/08/18 Blood Culture - Preliminary, Resulted NO GROWTH AFTER 1 DAY Medications Current Medications Levetiracetam 1000 mg/Sodium Chloride 110 ml @ 440 mls/hr 1X ONCE IV Last administered on 06/08/18at 09:03; Start 06/08/18 at 08:45; Stop 06/08/18 at 08 :59; Status DC Propofol (Diprivan) 200 mg 1X ONCE IV Last administered on 06/08/18at 08:52; Start 06/08/18 at 08:45; Stop 06/08/18 at 08:47; Status DC Sodium Chloride 1,000 ml @ 1,000 mls/hr 1X ONCE IV Last administered on 06/08at 09:03; Start 06/08/18 at 08:45; Stop 06/08/18 at 09:44; Status DC Sodium Chloride 1,000 ml @ 1,000 mls/hr 1X ONCE IV Last administered on 06/08at 09:03; Start 06/08/18 at 08:45; Stop 06/08/18 at 09:44; Status DC Etomidate (Amidate) 20 mg 1X ONCE IV Last administered on 06/08/18at 08:37; Start 06/08/18 at 08:45; Stop 06/08/18 at 08:47; Status DC Succinylcholine Chloride (Anectine) 100 mg 1X ONCE IV Last administered on at 08:38; Start 06/08/18 at 08:45; Stop 06/08/18 at 08:47; Status DC Propofol 50 ml @ As Directed STK-MED ONCE IV ; Start 06/08/18 at 08:49; Stop 06/08/18 at 08:50; Status DC Midazolam HCl (Versed) 4 mg 1X ONCE IV Last administered on 06/08/18at 09:13; Start 06/08/18 at 09:00; Stop 06/08/18 at 09:03; Status DC Fosphenytoin Sodium 1400 mg/ Sodium Chloride 78 ml @ 312 mls/hr 1X ONCE IV Last administered on 06/08/18at 09:46; Start 06/08/18 at 09:30; Stop 06/08/18 at 09:44; Status DC Norepinephrine Bitartrate 250 ml @ As Directed STK-MED ONCE IV ; Start at 10:11; Stop 06/08/18 at 10:12; Status DC Aspirin (Aspirin) 300 mg 1X STAT SC Last administered on 06/08/18at 10:36; Start 06/08/18 at 10:14; Stop 06/08/18 at 10:17; Status DC Norepinephrine Bitartrate 250 ml @ 1.875 mls/ hr CONT PRN IV SEE I/O RECORD Last administered on 06/09/18at 04:44; Start 06/08/18 at 10:30 Piperacillin Sod/ Tazobactam Sod 3.375 gm/Sodium Chloride 50 ml @ 100 mls/hr 1X ONCE IV Last administered on 06/08/18at 11:17; Start 06/08/18 at 10:30; Stop 06/08/18 at 10:59; Status DC Levetiracetam 1000 mg/Dextrose 110 ml @ 440 mls/hr BID IV Last administered on 06/09/18 21:09; Start 06/08/18 at 21:00 Albuterol/ Ipratropium (Duoneb) 3 ml RTQID NEB Last administered on 06/09/18at 19:56; Start 06/08/18 at 12:30 Enoxaparin Sodium (Lovenox 40mg Syringe) 40 mg Q24H SQ Last administered on at 15:28; Start 06/08/18 at 13:00; Stop 06/09/18 at 12:21; Status DC Famotidine (Pepcid) 20 mg QHS PO Last administered on 06/08/18at 21:09; Start 06/08/18 at 21:00 Propofol 100 ml @ 0 mls/hr CONT PRN IV PER PROTOCOL Last administered on at 04:44; Start 06/08/18 at 15:30 Fentanyl Citrate (Fentanyl 2ml Vial) 25 mcg PRN Q1HR PRN IV PAIN/SEDATION Last administered on 06/10/18at 01:23; Start 06/08/18 at 15:30 Aspirin (Children'S Aspirin) 81 mg [id number] PO Last administered on at 08:35; Start 06/09/18 at 08:00 Atorvastatin Calcium (Lipitor) 20 mg HS PO Last administered on 06/08/18at 21: 09; Start 06/08/18 at 21:00 Sertraline HCl (Zoloft) 50 mg DAILY PO Last administered on 06/09/18at 08:35; Start 06/09/18 at 09:00 Sodium Chloride 1,000 ml @ 100 mls/hr Q10H IV Last administered on 06/10/18at 00:28; Start 06/08/18 at 15:30 Piperacillin Sod/ Tazobactam Sod 3.375 gm/Sodium Chloride 50 ml @ 100 mls/hr Q6HRS IV ; Start 06/08/18 at 18:00; Status UNV Piperacillin Sod/ Tazobactam Sod (Zosyn Per Pharmacy) 1 each PRN DAILY PRN MC SEE COMMENTS; Start 06/08/18 at 15:30; Stop 06/09/18 at 13:46; Status DC Piperacillin Sod/ Tazobactam Sod 2.25 gm/Sodium Chloride 50 ml @ 100 mls/hr Q6HRS IV Last administered on 06/09/18at 12:37; Start 06/08/18 at 18:00; Stop 06/09/18 at 12:44; Status DC Haloperidol Lactate (Haldol Inj) 2 mg PRN Q2HRS PRN IVP AGITATION Last administered on 06/10/18at 00:24; Start 06/09/18 at 09:45 Heparin Sodium/ Dextrose 500 ml @ 0 mls/hr CONT PRN IV SEE I/O RECORD Last administered on 06/09/18at 15:09; Start 06/09/18 at 15:00 Heparin Sodium (Porcine) (Heparin Sodium) 1,800 unit PRN Q6HRS PRN IV FOR UFH LEVEL LESS THAN 0.2 Last administered on 06/09/18at 15:07; Start 06/09/18 at 12 :15 Info (Anti-Coagulation Monitoring By Pharmacy) 1 each PRN DAILY PRN MC SEE COMMENTS; Start 06/09/18 at 12:30 Piperacillin Sod/ Tazobactam Sod 3.375 gm/Sodium Chloride 50 ml @ 100 mls/hr Q6HRS IV ; Start 06/09/18 at 18:00; Stop 06/09/18 at 18:00; Status DC Influenza Virus Vaccine (Afluria Trivalent [id number] Syringe) 0.5 ml ONCE ONCE VAX IM ; Start 06/09/18 at 18:00; Stop 06/09/18 at 18:01; Status DC Dexmedetomidine HCl 200 mcg/ Sodium Chloride 50 ml @ 0 mls/hr CONT PRN IV PER PROTOCOL Last administered on 06/10/18at 00:26; Start 06/09/18 at 19:00 Sodium Chloride 500 ml @ 500 mls/hr 1X PRN PRN IV SEE COMMENTS; Start at 19:00 Atropine Sulfate (ATROPINE 0.5mg SYRINGE) 0.5 mg PRN Q5MIN PRN IV SEE COMMENTS ; Start 06/09/18 at 19:00 Vancomycin HCl (Vanco Per Pharmacy) 1 each PRN DAILY PRN MC SEE COMMENTS; Start 06/09/18 at 21:30; Status Cancel Piperacillin Sod/ Tazobactam Sod (Zosyn Per Pharmacy) 1 each PRN DAILY PRN MC SEE COMMENTS; Start 06/09/18 at 21:30; Status Cancel Piperacillin Sod/ Tazobactam Sod 3.375 gm/Sodium Chloride 50 ml @ 100 mls/hr Q6HRS IV ; Start 06/10/18 at 00:00; Status Cancel Vancomycin HCl 1.75 gm/Sodium Chloride 500 ml @ 250 mls/hr 1X ONCE IV Last administered on 06/09/18at 21:33; Start 06/09/18 at 22:00; Stop 06/09/18 at 22 :32; Status DC Active Scripts Active Reported Super B Complex (Vitamin B Complex & Vit C No.4) 150 Mg Tablet 150 Mg PO DAILY Lisinopril 10 Mg Tablet 1 Tab PO DAILY Aricept (Donepezil Hcl) 10 Mg Tablet 10 Mg PO HS Zoloft (Sertraline Hcl) 25 Mg Tablet 50 Mg PO DAILY Atorvastatin Calcium 20 Mg Tablet 20 Mg PO HS Spironolactone 25 Mg Tablet 25 Mg PO DAILY Multivitamins (Multivitamin) 1 Each Tablet 1 Tab PO DAILY Levetiracetam 500 Mg Tablet 2,000 Mg PO BID Carvedilol 6.25 Mg Tablet 6.25 Mg PO BID Aspir 81 (Aspirin) 81 Mg Tablet.dr 81 Mg PO DAILY Vitals/I & O Vital Sign - Last 24 Hours 06/09/18 06/09/18 06/09/18 06/09/18 08:00 08:00 08:02 09:00 Temp 97.9 97.9 Pulse 66 68 Resp 16 16 B/P (MAP) 105/80 (88) 114/79 (91) Pulse Ox 98 100 98 O2 Delivery Ventilator Mechanical Ventilator Ventilator Ventilator 06/09/18 06/09/18 06/09/18 06/09/18 10:00 11:00 12:00 12:00 Temp 98.2 98.2 Pulse 61 78 76 Resp 16 16 16 B/P (MAP) 88/70 (76) 82/64 (70) 90/66 (74) Pulse Ox 99 99 99 O2 Delivery Room Air Room Air Room Air Mechanical Ventilator 06/09/18 06/09/18 06/09/18 06/09/18 12:44 14:00 16:00 16:20 Pulse 68 Resp 16 16 B/P (MAP) 124/79 (94) Pulse Ox 95 95 O2 Delivery Room Air Room Air Mechanical Ventilator Room Air 06/09/18 06/09/18 06/09/18 06/09/18 16:33 17:00 18:43 19:00 Pulse 68 74 Resp 16 16 20 B/P (MAP) 120/80 (93) 81/63 (69) Pulse Ox 98 98 98 96 O2 Delivery Room Air Room Air Room Air Room Air 06/09/18 06/09/18 06/09/18 06/09/18 19:13 19:57 20:00 20:00 Temp 98.4 98.4 Pulse 62 Resp 16 16 Pulse Ox 100 100 95 O2 Delivery Room Air Mechanical Ventilator Room Air 06/09/18 06/09/18 06/09/18 06/09/18 21:00 21:30 22:00 22:00 Pulse 60 67 Resp 21 16 19 B/P (MAP) 95/74 (81) 83/67 (72) Pulse Ox 96 100 100 O2 Delivery Room Air Room Air Room Air Room Air 06/09/18 06/09/18 06/09/18 06/10/18 23:00 23:59 23:59 00:26 Temp 98.0 98.0 Pulse 65 68 Resp 19 19 18 B/P (MAP) 104/78 (87) 116/82 (93) Pulse Ox 100 100 100 O2 Delivery Room Air Room Air Mechanical Ventilator 06/10/18 06/10/18 06/10/18 06/10/18 01:00 01:23 03:00 04:00 Temp 98.2 98.2 Pulse 67 59 61 Resp 19 16 19 19 B/P (MAP) 110/84 (93) 123/89 (100) 120/92 (101) Pulse Ox 100 100 100 100 O2 Delivery Room Air Room Air Room Air 06/10/18 06/10/18 06/10/18 04:00 05:00 06:00 Pulse 62 60 Resp 21 21 B/P (MAP) 118/80 (93) 127/85 (99) Pulse Ox 100 100 O2 Delivery Mechanical Ventilator Room Air Room Air Intake and Output 06/09/18 06/09/18 06/10/18 15:00 23:00 07:00 Intake Total 320 ml 1312 ml 1225 ml Output Total 265 ml 340 ml 360 ml Balance 55 ml 972 ml 865 ml LESLIE NEVAREZ MD Jun 10, 2018 07:17
[2018-06-10 07:49] LABS: ALBUMIN 2.9 g/dL (3.4-5.0); CALCIUM 8.6 mg/dL (8.5-10.1); GFR 73.9; PHOSPHORUS 3.1 mg/dL (2.6-4.7); POTASSIUM 4.1 mmol/L (3.5-5.1)
[2018-06-10] MEDS: ASPIRIN CHEWABLE 81 MG TABLET. PO SCH (08:00)
[2018-06-10] MEDS: levETIRAcetam 1,000 MG in IV DEXTROSE 5% 100ML 100 ML IV SCH ×2 (08:32→21:13)
[2018-06-10 08:35] LABS: CHOLESTEROL/HDL RATIO 1.8
[2018-06-10] MEDS: IPRATRPIUM/ALBUTEROL 0.5/2.5MG 3 ML NEBU. NEB SCH ×4 (09:00→19:58)
[2018-06-10] MEDS: SERTRALINE 50 MG TABLET. PO SCH (09:00)
[2018-06-10 10:00] LABS: BASO # 0.1 x10^3/uL (0.0-0.2); BASO % 1 % (0-3); EOS # 0.3 x10^3/uL (0.0-0.7); EOS % 5 % (0-3); HEMATOCRIT 33.6 % (39.0-53.0); HEMOGLOBIN 11.7 g/dL (13.0-17.5); LYMPH # 0.9 x10^3/uL (1.0-4.8); LYMPH % 17 % (24-48); MEAN CORPUSCULAR HEMOGLOBIN 34 pg (25-35); MEAN CORPUSCULAR HGB CONC 35 g/dL (31-37); MEAN CORPUSCULAR VOLUME 98 fL (79-100); MONO # 0.6 x10^3/uL (0.0-1.1); MONO % 10 % (0-9); NEUT # 3.6 x10^3uL (1.8-7.7); NEUT % 67 % (31-73); PLATELET COUNT 133 x10^3/uL (140-400); RED BLOOD COUNT 3.43 x10^6/uL (4.30-5.70); RED CELL DISTRIBUTION WIDTH 13.7 % (11.5-14.5); WHITE BLOOD COUNT 5.4 x10^3/uL (4.0-11.0)
--- NOTE | 2018-06-10 10:03 | PDOC ---
PULMONARY PROGRESS NOTES Subjective extubated 06/09 requiring precedex for severe agitation Vitals Vital Signs Date Time Temp Pulse Resp B/P (MAP) Pulse Ox O2 Delivery O2 Flow Rate FiO2 06/10/18 09:01 100 Room Air 06/10/18 09:00 96.1 60 18 129/94 (106) 96.1 General: No acute distress Lungs: Other (rhonchi right lung) Cardiovascular: S1 Abdomen: Soft Extremities: No Edema Skin: Warm Labs Laboratory Tests Test 06/08/18 12:10 06/08/18 14:08 06/08/18 16:00 06/09/18 03:00 Lactic Acid Level 3.4 mmol/L (0.4-2.0) 1.3 mmol/L (0.4-2.0) Nasal Screen MRSA (PCR) Negative (Negative) Magnesium Level 2.1 mg/dL (1.8-2.4) Troponin I Quantitative 3.339 ng/mL (0.000-0.055) 2.039 ng/mL (0.000-0.055) White Blood Count 7.5 x10^3/uL (4.0-11.0) Red Blood Count 3.65 x10^6/uL (4.30-5.70) Hemoglobin 12.5 g/dL (13.0-17.5) Hematocrit 35.4 % (39.0-53.0) Mean Corpuscular Volume 97 fL (79-100) Mean Corpuscular Hemoglobin 34 pg (25-35) Mean Corpuscular Hemoglobin Concent 35 g/dL (31-37) Red Cell Distribution Width 13.4 % (11.5-14.5) Platelet Count 184 x10^3/uL (140-400) Neutrophils (%) (Auto) 73 % (31-73) Lymphocytes (%) (Auto) 13 % (24-48) Monocytes (%) (Auto) 13 % (0-9) Eosinophils (%) (Auto) 1 % (0-3) Basophils (%) (Auto) 1 % (0-3) Neutrophils # (Auto) 5.5 x10^3uL (1.8-7.7) Lymphocytes # (Auto) 1.0 x10^3/uL (1.0-4.8) Monocytes # (Auto) 1.0 x10^3/uL (0.0-1.1) Eosinophils # (Auto) 0.1 x10^3/uL (0.0-0.7) Basophils # (Auto) 0.1 x10^3/uL (0.0-0.2) Sodium Level 141 mmol/L (136-145) Potassium Level 3.6 mmol/L (3.5-5.1) Chloride Level 105 mmol/L (98-107) Carbon Dioxide Level 25 mmol/L (21-32) Anion Gap 11 (6-14) Blood Urea Nitrogen 18 mg/dL (8-26) Creatinine 1.4 mg/dL (0.7-1.3) Estimated GFR (Cockcroft-Gault) 50.1 Glucose Level 112 mg/dL (70-99) Calcium Level 8.7 mg/dL (8.5-10.1) Creatine Kinase 736 U/L (39-308) Free Thyroxine 1.10 ng/dL (0.76-1.46) Free Triiodothyronine (T3) pg/mL 1.58 pg/mL (2.18-3.98) Test 06/09/18 08:00 06/09/18 09:03 06/09/18 14:50 06/09/18 20:45 O2 Saturation 99 % (92-99) 99 % (92-99) Arterial Blood pH 7.48 (7.35-7.45) 7.42 (7.35-7.45) Arterial Blood pCO2 at Patient Temp 28 mmHg (35-46) 35 mmHg (35-46) Arterial Blood pO2 at Patient Temp 213 mmHg (65-108) 214 mmHg (65-108) Arterial Blood HCO3 20 mmol/L (21-28) 22 mmol/L (21-28) Arterial Blood Base Excess -2 mmol/L (-3-3) -2 mmol/L (-3-3) FiO2 40 40 Troponin I Quantitative 1.106 ng/mL (0.000-0.055) Heparin Anti-Xa Act, Unfractionated 0.21 IU/mL (0.30-0.70) Test 06/10/18 05:50 Heparin Anti-Xa Act, Unfractionated 0.57 IU/mL (0.30-0.70) Sodium Level 141 mmol/L (136-145) Potassium Level 4.1 mmol/L (3.5-5.1) Chloride Level 107 mmol/L (98-107) Carbon Dioxide Level 23 mmol/L (21-32) Anion Gap 11 (6-14) Blood Urea Nitrogen 14 mg/dL (8-26) Creatinine 1.0 mg/dL (0.7-1.3) Estimated GFR (Cockcroft-Gault) 73.9 Glucose Level 114 mg/dL (70-99) Calcium Level 8.6 mg/dL (8.5-10.1) Phosphorus Level 3.1 mg/dL (2.6-4.7) Magnesium Level 2.0 mg/dL (1.8-2.4) Albumin 2.9 g/dL (3.4-5.0) Triglycerides Level 31 mg/dL (0-150) Cholesterol Level 136 mg/dL (0-200) LDL Cholesterol, Calculated 55 mg/dL (0-100) VLDL Cholesterol, Calculated 6 mg/dL (0-40) Non-HDL Cholesterol Calculated 61 mg/dL (0-129) HDL Cholesterol 75 mg/dL (40-60) Cholesterol/HDL Ratio 1.8 Laboratory Tests Test 06/09/18 14:50 06/09/18 20:45 06/10/18 05:50 Troponin I Quantitative 1.106 ng/mL (0.000-0.055) Heparin Anti-Xa Act, Unfractionated 0.21 IU/mL (0.30-0.70) 0.57 IU/mL (0.30-0.70) Sodium Level 141 mmol/L (136-145) Potassium Level 4.1 mmol/L (3.5-5.1) Chloride Level 107 mmol/L (98-107) Carbon Dioxide Level 23 mmol/L (21-32) Anion Gap 11 (6-14) Blood Urea Nitrogen 14 mg/dL (8-26) Creatinine 1.0 mg/dL (0.7-1.3) Estimated GFR (Cockcroft-Gault) 73.9 Glucose Level 114 mg/dL (70-99) Calcium Level 8.6 mg/dL (8.5-10.1) Phosphorus Level 3.1 mg/dL (2.6-4.7) Magnesium Level 2.0 mg/dL (1.8-2.4) Albumin 2.9 g/dL (3.4-5.0) Triglycerides Level 31 mg/dL (0-150) Cholesterol Level 136 mg/dL (0-200) LDL Cholesterol, Calculated 55 mg/dL (0-100) VLDL Cholesterol, Calculated 6 mg/dL (0-40) Non-HDL Cholesterol Calculated 61 mg/dL (0-129) HDL Cholesterol 75 mg/dL (40-60) Cholesterol/HDL Ratio 1.8 Medications Active Scripts Medications Dose Route/Sig Max Daily Dose Days Date Category Super B Complex (Vitamin B Complex & Vit C No.4) 150 Mg Tablet 150 Mg PO DAILY 06/08/18 Reported Lisinopril 10 Mg Tablet 1 Tab PO DAILY 06/08/18 Reported Aricept (Donepezil Hcl) 10 Mg Tablet 10 Mg PO HS 01/23/18 Reported Zoloft (Sertraline Hcl) 25 Mg Tablet 50 Mg PO DAILY 01/23/18 Reported Atorvastatin Calcium 20 Mg Tablet 20 Mg PO HS 01/23/18 Reported Spironolactone 25 Mg Tablet 25 Mg PO DAILY 01/23/18 Reported Multivitamins (Multivitamin) 1 Each Tablet 1 Tab PO DAILY 08/28/14 Reported Levetiracetam 500 Mg Tablet 2,000 Mg PO BID 11/15/13 Reported Carvedilol 6.25 Mg Tablet 6.25 Mg PO BID 11/15/13 Reported Aspir 81 (Aspirin) 81 Mg Tablet. 81 Mg PO DAILY 11/15/13 Reported Impression . 1. Acute respiratory failure secondary to acute encephalopathy and seizure disorder. extubated 06/09 2. seizure disorder, 3. History of severe cardiomyopathy with an ejection fraction of 15%. Chest x-ray not in congestive heart failure. EF NOW 25% 4. Fever, RESOLVED .Clinically less likely pneumonia. 5. Increase troponin/ NSTMI 6. Dementia/ persistent encephalopathy. ? etiology/ may need Psych meds Plan . 1. nasal canula 2. Follow Neurology recommendations. 3. Nutrition IV for now 4. Lactic acidosis related to seizures , resolved 5. Bronchodilators. 6. DVT prophylaxis. 7. Stress ulcer prophylaxis. 8. Anti-seizure medications per Neurology. 9. Resolved fever. Empiric Abx for now 10.Cardiology consult/rec 11. Discussed with RN and DR NEVAREZ. Initiate ANANT Valdez MD Jun 10, 2018 10:03
[2018-06-10] MEDS: AMINO AC 3%/ELECTROLYTE/GLYCER 1,000 ML IV SCH ×2 (10:25→22:45)
[2018-06-10] MEDS: OLANZapine IM 10 MG VIAL. IM PRN (10:28)
--- NOTE | 2018-06-10 10:30 | PDOC ---
CARDIO Progress Notes Date and Time Date of Service 06/10/18 Time of Evaluation 1025 Subjective Subjective: Other (confused, sedation) Vitals Vitals Vital Signs Date Time Temp Pulse Resp B/P (MAP) Pulse Ox O2 Delivery O2 Flow Rate FiO2 06/10/18 10:00 96.5 64 20 114/82 (93) 97 Room Air 96.5 Weight Weight [ ] Input and Output Intake and Output Intake and Output 06/10/18 07:00 Intake Total 2857 ml Output Total 1065 ml Balance 1792 ml Intake Oral 50 ml IV Total 2697 ml Tube Feeding 110 ml Output Urine Total 1065 ml Laboratory Labs Laboratory Tests Test 06/09/18 14:50 06/09/18 20:45 06/10/18 05:50 Troponin I Quantitative 1.106 ng/mL (0.000-0.055) Heparin Anti-Xa Act, Unfractionated 0.21 IU/mL (0.30-0.70) 0.57 IU/mL (0.30-0.70) White Blood Count 5.4 x10^3/uL (4.0-11.0) Red Blood Count 3.43 x10^6/uL (4.30-5.70) Hemoglobin 11.7 g/dL (13.0-17.5) Hematocrit 33.6 % (39.0-53.0) Mean Corpuscular Volume 98 fL (79-100) Mean Corpuscular Hemoglobin 34 pg (25-35) Mean Corpuscular Hemoglobin Concent 35 g/dL (31-37) Red Cell Distribution Width 13.7 % (11.5-14.5) Platelet Count 133 x10^3/uL (140-400) Neutrophils (%) (Auto) 67 % (31-73) Lymphocytes (%) (Auto) 17 % (24-48) Monocytes (%) (Auto) 10 % (0-9) Eosinophils (%) (Auto) 5 % (0-3) Basophils (%) (Auto) 1 % (0-3) Neutrophils # (Auto) 3.6 x10^3uL (1.8-7.7) Lymphocytes # (Auto) 0.9 x10^3/uL (1.0-4.8) Monocytes # (Auto) 0.6 x10^3/uL (0.0-1.1) Eosinophils # (Auto) 0.3 x10^3/uL (0.0-0.7) Basophils # (Auto) 0.1 x10^3/uL (0.0-0.2) Sodium Level 141 mmol/L (136-145) Potassium Level 4.1 mmol/L (3.5-5.1) Chloride Level 107 mmol/L (98-107) Carbon Dioxide Level 23 mmol/L (21-32) Anion Gap 11 (6-14) Blood Urea Nitrogen 14 mg/dL (8-26) Creatinine 1.0 mg/dL (0.7-1.3) Estimated GFR (Cockcroft-Gault) 73.9 Glucose Level 114 mg/dL (70-99) Calcium Level 8.6 mg/dL (8.5-10.1) Phosphorus Level 3.1 mg/dL (2.6-4.7) Magnesium Level 2.0 mg/dL (1.8-2.4) Albumin 2.9 g/dL (3.4-5.0) Triglycerides Level 31 mg/dL (0-150) Cholesterol Level 136 mg/dL (0-200) LDL Cholesterol, Calculated 55 mg/dL (0-100) VLDL Cholesterol, Calculated 6 mg/dL (0-40) Non-HDL Cholesterol Calculated 61 mg/dL (0-129) HDL Cholesterol 75 mg/dL (40-60) Cholesterol/HDL Ratio 1.8 Microbiology Micro Microbiology 06/08/18 Blood Culture - Preliminary, Resulted NO GROWTH AFTER 2 DAYS Physical Exam HEENT: Neck Supple W Full Motion Chest: Symmetric LUNGS: Clear to Auscultation Heart: S1S2, RRR (tele SR with int pacing. Also noted occasional bursts of NSVT ), murmurs (2/6 systolic murmur ) Abdomen: Soft N/T Extremities: No Edema Neurology: confused (requiring ) Assessment Assessment 1. Status epilepticus with h/o seizures: Spoke with Celso (nephew who lives with patient), was found seizing around 7:50am. 2. Acute respiratory failure: extubated 06/09. on NC. pulmonary following. 3. NSTEMI: troponin peak 3.3. multifactorial given seizures and therapeutic defibrillation x2. 4. Metabolic/hypoxic encephalopathy. Remains on sedation due to agitation 5. Chronic systolic CHF: LVEF 20-25%- no significant changes from previous TTE in 05/2017. compensated. 6. Hx of NICM (dilated CM) with past hx of NSVT. s/p AICD ([facility]). Last [facility] 2014 with no CAD. Negative exercise stress test 07/2016. 7. Sustained VT; Device interrogation revealed normal device function. Patient had episode of sustained VT at 4:54 am, for which therapeutic shock x2 were delivered. Additional episode of VT was aborted with ATP at 4:55am. Few episodes of NSVT noted on telemetry overnight Also had multiple episodes of SVT suspicious for AFIB with RVR. AT/AF burden <1% since 10/13/17. 8. Hypothyroidism 9. HTN: controlled 10. HLP 11. JESE on CKD; improved. 12. Hypothermia; Yadi Hugger 13. Lactic acidosis; resolved Recommendations Continue heparin for another 24 hrs. Start Amiodarone gtt for VT suppression. Add BB if BP allows. ASA for stroke prevention as patient is poor candidate for long-term AC given seizures. Consider ischemic workup when acute issues resolve. Records for [facility] reviewed: - Echo 07/25/16 Global LV systolic dysfunction; LVEF 25-30% Moderate diastolic dysfunction Mild to moderate mitral reg Moderate LA enlargement Normal RV function - Treadmill stress test 07/25/16 Good exercise capacity No ECG evidence to suggest ischemia at peak heart rate - Echo 06/23/17 Depressed LV function; LVEF 25% Mild LVH Moderate LA enlargement Mild MR PAP 24 mmHg CHRIS DONALDSON APRN Jun 10, 2018 10:30
--- NOTE | 2018-06-10 14:17 | PDOC ---
PROGRESS NOTES Assessment Assessment Status epilepticus. Seizure. Metabolic encephalopathy. Respiratory failure. Lactic acidosis. NSTEMI likely. DM? Cerebral capillary telangiectasia? HTN. HLD. Hypothyroidism. Pacemaker in site. RECOMMENDATIONS/PLAN: Keppra 1000 mg IV q12h. Fosphenytoin administrated in ER. EEG performed. Treat NSTEMI per cardiology. MRI not obtained due to pacemaker. Discussed with his sisters at bedside on 06/09/18. HISTORY OF THE PRESENT ILLNESS: 72-y-old patient with Hx of seizure and has been treated with Keppra. He had mental status changes, unresponsiveness and convulsions noted byt his family to be brought to the ER of [facility]. He was intubated in the ER due to unable to maintain upper airway from seizing. Phenytoin was administrated in the ER to control his convulsion. No clinic seizures since in ICU. Extubated on 06/09/18. Past Medical History Cardiovascular: HTN, Hyperlipidemia Pulmonary: No pertinent hx CENTRAL NERVOUS SYSTEM: Seizure GI: No pertinent hx Heme/Onc: No pertinent hx Hepatobiliary: No pertinent hx Psych: No pertinent hx Rheumatologic: No pertinent hx Infectious disease: No pertinent hx Renal/: No pertinent hx Endocrine: No pertinent hx Past Surgical History Appendectomy Family History Unknown Social History Smoke: No ALCOHOL: none Drugs: None ALLERGY: Reviewed. MEDICATIONS: Refer to [facility]VIEW OF SYSTEMS: Constitutional: No malnutrition, weight loss, cachexia. Head: No recent traumatic brain or head injury. Skin: No edema, or rash. Ear: No infection. Eyes: No vision loss or color blindness. Nose: No bleeding or purulent discharges. Hearing: Hearing decrease. Neck: No injury. Cardiac: Pacemaker Placement, HTN, HLD. Pulmonary: No COPD. GI: No GI ulcer, GI bleeding. Urinary/genital: UTI. Endocrinologic: Diabetes Mellitus? Skeletomuscular: No muscular atrophy, deformity. Neurological: see HP. Psychiatric: Denies drug use/abuse. Otherwise, not [id number] review of systems. PHYSICAL EXAMINATION: General appearance is in subacute distress. HEENT: Normocephalic and nontraumatic. Eyes, nose, ears, and throat are unremarkable. Neck is supple. No lymphadenopathy.No crepitus. Cardiovascular: S1, S2, regular rate and rhythm. Pulmonary: On vent. Abdomen: Bowel sounds are positive. Extremities: No rash, lesions, or edema. No restriction of range of motion NEUROLOGICAL EXAMINATION: Not oriented to time, place but knew his family members. PERRL. EOMI. CN: no acute focal findings. Muscle tone: fluctuated. Muscle strength: 4+ DTR: 1-2 Plantar reflex: Extensor response in right side. Neutral response in left side. Gait: Not examined in bed. Sensory exam: no abnormal findings. No acute cerebellar signs elicited. F-T-N test not performed due to not follow commands. Objective Objective Vital Signs Date Time Temp Pulse Resp B/P (MAP) Pulse Ox O2 Delivery O2 Flow Rate FiO2 06/10/18 13:00 98.3 73 20 98/69 (79) 98 Room Air 98.3 Intake and Output 06/10/18 07:00 Intake Total 2857 ml Output Total 1065 ml Balance 1792 ml Intake Oral 50 ml IV Total 2697 ml Tube Feeding 110 ml Output Urine Total 1065 ml Vitals Signs Vitals VS - Last 72 Hours, by Label Date Time Temp Pulse Resp B/P (MAP) Pulse Ox O2 Delivery O2 Flow Rate FiO2 06/10/18 13:00 98.3 73 20 98/69 (79) 98 Room Air 98.3 06/10/18 12:02 100 Room Air 06/10/18 12:00 97.5 73 22 113/80 (91) 100 Room Air 97.5 06/10/18 12:00 Room Air 06/10/18 11:00 97.3 64 20 124/89 (101) 99 Room Air 97.3 06/10/18 10:00 96.5 64 20 114/82 (93) 97 Room Air 96.5 06/10/18 09:01 100 Room Air 06/10/18 09:00 96.1 60 18 129/94 (106) 99 Room Air 96.1 06/10/18 08:31 20 99 Room Air 06/10/18 08:00 96.5 65 18 115/81 (92) 97 Room Air 96.5 06/10/18 08:00 Room Air 06/10/18 07:54 20 94 Room Air 06/10/18 07:00 66 20 129/86 (100) 94 Room Air 06/10/18 06:00 60 21 127/85 (99) 100 Room Air 06/10/18 05:00 62 21 118/80 (93) 100 Room Air 06/10/18 04:00 Mechanical Ventilator 06/10/18 04:00 98.2 61 19 120/92 (101) 100 Room Air 98.2 06/10/18 03:00 59 19 123/89 (100) 100 Room Air 06/10/18 01:23 16 100 06/10/18 01:00 67 19 110/84 (93) 100 Room Air 06/10/18 00:26 18 100 06/09/18 23:59 Mechanical Ventilator 06/09/18 23:59 98.0 68 19 116/82 (93) 100 Room Air 98.0 06/09/18 23:00 65 19 104/78 (87) 100 Room Air 06/09/18 22:00 67 19 83/67 (72) 100 Room Air 06/09/18 21:30 16 100 Room Air 06/09/18 21:00 60 21 95/74 (81) 96 Room Air 06/09/18 20:00 98.4 62 16 95 Room Air 98.4 06/09/18 20:00 Mechanical Ventilator 06/09/18 19:57 100 Room Air 06/09/18 19:00 74 20 81/63 (69) 96 Room Air 06/09/18 18:43 16 98 Room Air 06/09/18 17:00 68 16 120/80 (93) 98 Room Air 06/09/18 16:33 98 Room Air 06/09/18 16:20 16 95 Room Air 06/09/18 16:00 Mechanical Ventilator 06/09/18 14:00 68 16 124/79 (94) Room Air 06/09/18 12:44 95 Room Air 06/09/18 12:00 Mechanical Ventilator 06/09/18 12:00 98.2 76 16 90/66 (74) 99 Room Air 98.2 06/09/18 11:00 78 16 82/64 (70) 99 Room Air 06/09/18 10:00 61 16 88/70 (76) 99 Room Air 06/09/18 09:00 68 16 114/79 (91) 98 Ventilator 06/09/18 08:02 100 Ventilator 06/09/18 08:00 Mechanical Ventilator 06/09/18 08:00 97.9 66 16 105/80 (88) 98 Ventilator 97.9 06/09/18 07:08 16 Ventilator 06/09/18 07:00 64 16 105/80 (88) 100 Ventilator Laboratory Laboratory Laboratory Tests Test 06/09/18 14:50 06/09/18 20:45 06/10/18 05:50 06/10/18 13:00 Troponin I Quantitative 1.106 ng/mL (0.000-0.055) Heparin Anti-Xa Act, Unfractionated 0.21 IU/mL (0.30-0.70) 0.57 IU/mL (0.30-0.70) 0.56 IU/mL (0.30-0.70) White Blood Count 5.4 x10^3/uL (4.0-11.0) Red Blood Count 3.43 x10^6/uL (4.30-5.70) Hemoglobin 11.7 g/dL (13.0-17.5) Hematocrit 33.6 % (39.0-53.0) Mean Corpuscular Volume 98 fL (79-100) Mean Corpuscular Hemoglobin 34 pg (25-35) Mean Corpuscular Hemoglobin Concent 35 g/dL (31-37) Red Cell Distribution Width 13.7 % (11.5-14.5) Platelet Count 133 x10^3/uL (140-400) Neutrophils (%) (Auto) 67 % (31-73) Lymphocytes (%) (Auto) 17 % (24-48) Monocytes (%) (Auto) 10 % (0-9) Eosinophils (%) (Auto) 5 % (0-3) Basophils (%) (Auto) 1 % (0-3) Neutrophils # (Auto) 3.6 x10^3uL (1.8-7.7) Lymphocytes # (Auto) 0.9 x10^3/uL (1.0-4.8) Monocytes # (Auto) 0.6 x10^3/uL (0.0-1.1) Eosinophils # (Auto) 0.3 x10^3/uL (0.0-0.7) Basophils # (Auto) 0.1 x10^3/uL (0.0-0.2) Sodium Level 141 mmol/L (136-145) Potassium Level 4.1 mmol/L (3.5-5.1) Chloride Level 107 mmol/L (98-107) Carbon Dioxide Level 23 mmol/L (21-32) Anion Gap 11 (6-14) Blood Urea Nitrogen 14 mg/dL (8-26) Creatinine 1.0 mg/dL (0.7-1.3) Estimated GFR (Cockcroft-Gault) 73.9 Glucose Level 114 mg/dL (70-99) Calcium Level 8.6 mg/dL (8.5-10.1) Phosphorus Level 3.1 mg/dL (2.6-4.7) Magnesium Level 2.0 mg/dL (1.8-2.4) Albumin 2.9 g/dL (3.4-5.0) Triglycerides Level 31 mg/dL (0-150) Cholesterol Level 136 mg/dL (0-200) LDL Cholesterol, Calculated 55 mg/dL (0-100) VLDL Cholesterol, Calculated 6 mg/dL (0-40) Non-HDL Cholesterol Calculated 61 mg/dL (0-129) HDL Cholesterol 75 mg/dL (40-60) Cholesterol/HDL Ratio 1.8 Microbiology 06/08/18 Blood Culture - Preliminary, Resulted NO GROWTH AFTER 2 DAYS Medication Medications Current Medications Amino Acids/ Glycerin/ Electrolytes 1,000 ml @ 80 mls/hr [id number] IV Last administered on 06/10/18at 10:25; Start 06/10/18 at 10:15 Atropine Sulfate (ATROPINE 0.5mg SYRINGE) 0.5 mg PRN Q5MIN PRN IV SEE COMMENTS ; Start 06/09/18 at 19:00 Dexmedetomidine HCl 200 mcg/ Sodium Chloride 50 ml @ 0 mls/hr CONT PRN IV PER PROTOCOL Last administered on 06/10/18at 09:01; Start 06/09/18 at 19:00 Heparin Sodium/ Dextrose 500 ml @ 0 mls/hr CONT PRN IV SEE I/O RECORD Last administered on 06/09/18at 15:09; Start 06/09/18 at 15:00 Influenza Virus Vaccine (Afluria Trivalent [id number] Syringe) 0.5 ml ONCE ONCE VAX IM ; Start 06/09/18 at 18:00; Stop 06/09/18 at 18:01; Status DC Olanzapine (ZyPREXA IM) 5 mg PRN BID PRN IM agitation Last administered on at 10:28; Start 06/10/18 at 10:15 Piperacillin Sod/ Tazobactam Sod (Zosyn Per Pharmacy) 1 each PRN DAILY PRN MC SEE COMMENTS; Start 06/09/18 at 21:30; Status Cancel Piperacillin Sod/ Tazobactam Sod 3.375 gm/Sodium Chloride 50 ml @ 100 mls/hr Q6HRS IV ; Start 06/09/18 at 18:00; Stop 06/09/18 at 18:00; Status DC Piperacillin Sod/ Tazobactam Sod 3.375 gm/Sodium Chloride 50 ml @ 100 mls/hr Q6HRS IV ; Start 06/10/18 at 00:00; Status Cancel Sodium Chloride 500 ml @ 500 mls/hr 1X PRN PRN IV SEE COMMENTS; Start at 19:00 Vancomycin HCl (Vanco Per Pharmacy) 1 each PRN DAILY PRN MC SEE COMMENTS; Start 06/09/18 at 21:30; Status Cancel Vancomycin HCl 1.75 gm/Sodium Chloride 500 ml @ 250 mls/hr 1X ONCE IV Last administered on 06/09/18at 21:33; Start 06/09/18 at 22:00; Stop 06/09/18 at 22 :32; Status DC Comment Review of Relevant I have reviewed the following items sharee (where applicable) has been applied. PITO SUMNER MD Jun 10, 2018 14:17
[2018-06-10] MEDS ORDERED: AMIODARONE 900 MG in IV DEXTROSE 5% 500 ML IV PRN ×2 (15:15→15:30)
[2018-06-10] MEDS ORDERED: AMIODARONE 150 MG in IV DEXTROSE 5% 100ML 100 ML IV ONE (15:45)
[2018-06-10] MEDS: HEPARIN 25,000UTS/500ML PREMIX 500 ML IV PRN (16:49)
[2018-06-10] MEDS: FAMOTIDINE 20 MG TABLET. PO SCH (21:00)
[2018-06-10] MEDS: ATORVASTATIN CALCIUM 20 MG TABLET PO SCH (21:00)
[2018-06-11] VITALS (16 sets, daily range): BP systolic 118–151; BP diastolic 72–102
[2018-06-11 06:57] LABS: ALBUMIN 2.7 g/dL (3.4-5.0); CALCIUM 8.5 mg/dL (8.5-10.1); CREATININE 1.1 mg/dL (0.7-1.3); GFR 66.2; PHOSPHORUS 2.9 mg/dL (2.6-4.7); POTASSIUM 3.6 mmol/L (3.5-5.1)
[2018-06-11] MEDS: fentaNYL PF VIAL 100 MCG/2 ML VIAL IV PRN (07:07)
[2018-06-11] MEDS: HALOPERIDOL LACTATE 5 MG/ML VIAL. IVP PRN (07:07)
--- NOTE | 2018-06-11 07:35 | PDOC ---
PROGRESS NOTES Chief Complaint Chief Complaint Seizure Respiratory failure, hypoxia History of Present Illness History of Present Illness Patient is a 72 year old male who presents with seizure. 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 He was dced here 4 months ago for seizure, takes keppra for now. Pt seen in ICU, extubated 06/09. EEG bedside in ICU 06/08 Overnight became agitated, not responsive to redirection, haldol, was started on precedex with good effect. This morning more agitated, pulled out IV, responsive to IM zyprexa 5mg. Still not awake enough to work with REGISTERED CLIENT ASSOCIATE. A/P: epilepy status - initially requiring intubated, cont keppra, consult neuro acute resp failure with seizure - intubated for hypoxia with seizure, s/p extubation 06/09 AMS, with seizure - has baseline dementia, he is not back to his baseline per family, possibly ICU delerium, will add zyprexa IM 5mg BID prn for agitation JESE, vasomotor - likely from seizure, fluids lactate acidosis - likely seizure related, was given zosyn for possible aspiration, off antibiotics now, no further fevers elevated troponin - with h/o CHF consulted cardiology, trended down hypotension - improved, off levophed h/o Systolic CHF - consulted cardiology Dementia - light during day. Family nearby. Zyprexa IM or oral haldol prn agitation. wean precedex as tolerated HTN - hold meds for now HLD - hold stating until taking PO h/o epilepsy - having trouble with meds, cont keppra PPM - interrogate today depression - related to dementia plan: ICU care, can consider downgrade today if beds needed NPO, add IVF - will get REGISTERED CLIENT ASSOCIATE eval when more awake, PPN for now dvt, gi ppx on keppra iv bid labs daily FULL CODE Wards ok Vitals Vitals Vital Signs Date Time Temp Pulse Resp B/P (MAP) Pulse Ox O2 Delivery O2 Flow Rate FiO2 06/11/18 07:07 20 98 Room Air 06/11/18 06:00 80 140/87 (104) 06/11/18 05:00 98.4 98.4 Physical Exam General: Alert, Cooperative, mild distress Heart: Regular rate, Normal S1, Normal S2 Lungs: Other (rhonchi right lung) Abdomen: Normal bowel sounds, Soft, No tenderness Extremities: No clubbing, No cyanosis, No edema Skin: No rashes, No significant lesion Labs LABS Laboratory Tests Test 06/10/18 13:00 06/10/18 19:05 06/11/18 05:40 Heparin Anti-Xa Act, Unfractionated 0.56 IU/mL (0.30-0.70) 0.36 IU/mL (0.30-0.70) Sodium Level 139 mmol/L (136-145) Potassium Level 3.6 mmol/L (3.5-5.1) Chloride Level 104 mmol/L (98-107) Carbon Dioxide Level 23 mmol/L (21-32) Anion Gap 12 (6-14) Blood Urea Nitrogen 10 mg/dL (8-26) Creatinine 1.1 mg/dL (0.7-1.3) Estimated GFR (Cockcroft-Gault) 66.2 Glucose Level 80 mg/dL (70-99) Calcium Level 8.5 mg/dL (8.5-10.1) Phosphorus Level 2.9 mg/dL (2.6-4.7) Albumin 2.7 g/dL (3.4-5.0) Comment Review of Relevant I have reviewed the following items sharee (where applicable) has been applied. Labs Laboratory Tests Test 06/09/18 08:00 06/09/18 09:03 06/09/18 14:50 06/09/18 20:45 O2 Saturation 99 % (92-99) 99 % (92-99) Arterial Blood pH 7.48 (7.35-7.45) 7.42 (7.35-7.45) Arterial Blood pCO2 at Patient Temp 28 mmHg (35-46) 35 mmHg (35-46) Arterial Blood pO2 at Patient Temp 213 mmHg (65-108) 214 mmHg (65-108) Arterial Blood HCO3 20 mmol/L (21-28) 22 mmol/L (21-28) Arterial Blood Base Excess -2 mmol/L (-3-3) -2 mmol/L (-3-3) FiO2 40 40 Troponin I Quantitative 1.106 ng/mL (0.000-0.055) Heparin Anti-Xa Act, Unfractionated 0.21 IU/mL (0.30-0.70) Test 06/10/18 05:50 06/10/18 13:00 06/10/18 19:05 06/11/18 05:40 White Blood Count 5.4 x10^3/uL (4.0-11.0) Red Blood Count 3.43 x10^6/uL (4.30-5.70) Hemoglobin 11.7 g/dL (13.0-17.5) Hematocrit 33.6 % (39.0-53.0) Mean Corpuscular Volume 98 fL (79-100) Mean Corpuscular Hemoglobin 34 pg (25-35) Mean Corpuscular Hemoglobin Concent 35 g/dL (31-37) Red Cell Distribution Width 13.7 % (11.5-14.5) Platelet Count 133 x10^3/uL (140-400) Neutrophils (%) (Auto) 67 % (31-73) Lymphocytes (%) (Auto) 17 % (24-48) Monocytes (%) (Auto) 10 % (0-9) Eosinophils (%) (Auto) 5 % (0-3) Basophils (%) (Auto) 1 % (0-3) Neutrophils # (Auto) 3.6 x10^3uL (1.8-7.7) Lymphocytes # (Auto) 0.9 x10^3/uL (1.0-4.8) Monocytes # (Auto) 0.6 x10^3/uL (0.0-1.1) Eosinophils # (Auto) 0.3 x10^3/uL (0.0-0.7) Basophils # (Auto) 0.1 x10^3/uL (0.0-0.2) Heparin Anti-Xa Act, Unfractionated 0.57 IU/mL (0.30-0.70) 0.56 IU/mL (0.30-0.70) 0.36 IU/mL (0.30-0.70) Sodium Level 141 mmol/L (136-145) 139 mmol/L (136-145) Potassium Level 4.1 mmol/L (3.5-5.1) 3.6 mmol/L (3.5-5.1) Chloride Level 107 mmol/L (98-107) 104 mmol/L (98-107) Carbon Dioxide Level 23 mmol/L (21-32) 23 mmol/L (21-32) Anion Gap 11 (6-14) 12 (6-14) Blood Urea Nitrogen 14 mg/dL (8-26) 10 mg/dL (8-26) Creatinine 1.0 mg/dL (0.7-1.3) 1.1 mg/dL (0.7-1.3) Estimated GFR (Cockcroft-Gault) 73.9 66.2 Glucose Level 114 mg/dL (70-99) 80 mg/dL (70-99) Calcium Level 8.6 mg/dL (8.5-10.1) 8.5 mg/dL (8.5-10.1) Phosphorus Level 3.1 mg/dL (2.6-4.7) 2.9 mg/dL (2.6-4.7) Magnesium Level 2.0 mg/dL (1.8-2.4) Albumin 2.9 g/dL (3.4-5.0) 2.7 g/dL (3.4-5.0) Triglycerides Level 31 mg/dL (0-150) Cholesterol Level 136 mg/dL (0-200) LDL Cholesterol, Calculated 55 mg/dL (0-100) VLDL Cholesterol, Calculated 6 mg/dL (0-40) Non-HDL Cholesterol Calculated 61 mg/dL (0-129) HDL Cholesterol 75 mg/dL (40-60) Cholesterol/HDL Ratio 1.8 Laboratory Tests Test 06/10/18 13:00 06/10/18 19:05 06/11/18 05:40 Heparin Anti-Xa Act, Unfractionated 0.56 IU/mL (0.30-0.70) 0.36 IU/mL (0.30-0.70) Sodium Level 139 mmol/L (136-145) Potassium Level 3.6 mmol/L (3.5-5.1) Chloride Level 104 mmol/L (98-107) Carbon Dioxide Level 23 mmol/L (21-32) Anion Gap 12 (6-14) Blood Urea Nitrogen 10 mg/dL (8-26) Creatinine 1.1 mg/dL (0.7-1.3) Estimated GFR (Cockcroft-Gault) 66.2 Glucose Level 80 mg/dL (70-99) Calcium Level 8.5 mg/dL (8.5-10.1) Phosphorus Level 2.9 mg/dL (2.6-4.7) Albumin 2.7 g/dL (3.4-5.0) Microbiology 06/08/18 Blood Culture - Preliminary, Resulted NO GROWTH AFTER 2 DAYS Medications Current Medications Levetiracetam 1000 mg/Sodium Chloride 110 ml @ 440 mls/hr 1X ONCE IV Last administered on 06/08/18at 09:03; Start 06/08/18 at 08:45; Stop 06/08/18 at 08 :59; Status DC Propofol (Diprivan) 200 mg 1X ONCE IV Last administered on 06/08/18at 08:52; Start 06/08/18 at 08:45; Stop 06/08/18 at 08:47; Status DC Sodium Chloride 1,000 ml @ 1,000 mls/hr 1X ONCE IV Last administered on 06/08at 09:03; Start 06/08/18 at 08:45; Stop 06/08/18 at 09:44; Status DC Sodium Chloride 1,000 ml @ 1,000 mls/hr 1X ONCE IV Last administered on 06/08at 09:03; Start 06/08/18 at 08:45; Stop 06/08/18 at 09:44; Status DC Etomidate (Amidate) 20 mg 1X ONCE IV Last administered on 06/08/18at 08:37; Start 06/08/18 at 08:45; Stop 06/08/18 at 08:47; Status DC Succinylcholine Chloride (Anectine) 100 mg 1X ONCE IV Last administered on at 08:38; Start 06/08/18 at 08:45; Stop 06/08/18 at 08:47; Status DC Propofol 50 ml @ As Directed STK-MED ONCE IV ; Start 06/08/18 at 08:49; Stop 06/08/18 at 08:50; Status DC Midazolam HCl (Versed) 4 mg 1X ONCE IV Last administered on 06/08/18at 09:13; Start 06/08/18 at 09:00; Stop 06/08/18 at 09:03; Status DC Fosphenytoin Sodium 1400 mg/ Sodium Chloride 78 ml @ 312 mls/hr 1X ONCE IV Last administered on 06/08/18at 09:46; Start 06/08/18 at 09:30; Stop 06/08/18 at 09:44; Status DC Norepinephrine Bitartrate 250 ml @ As Directed STK-MED ONCE IV ; Start at 10:11; Stop 06/08/18 at 10:12; Status DC Aspirin (Aspirin) 300 mg 1X STAT [place] Last administered on 06/08/18at 10:36; Start 06/08/18 at 10:14; Stop 06/08/18 at 10:17; Status DC Norepinephrine Bitartrate 250 ml @ 1.875 mls/ hr CONT PRN IV SEE I/O RECORD Last administered on 06/09/18at 04:44; Start 06/08/18 at 10:30 Piperacillin Sod/ Tazobactam Sod 3.375 gm/Sodium Chloride 50 ml @ 100 mls/hr 1X ONCE IV Last administered on 06/08/18at 11:17; Start 06/08/18 at 10:30; Stop 06/08/18 at 10:59; Status DC Levetiracetam 1000 mg/Dextrose 110 ml @ 440 mls/hr BID IV Last administered on 06/10/18at 21:13; Start 06/08/18 at 21:00 Albuterol/ Ipratropium (Duoneb) 3 ml RTQID NEB Last administered on 06/10/18at 15:42; Start 06/08/18 at 12:30 Enoxaparin Sodium (Lovenox 40mg Syringe) 40 mg Q24H SQ Last administered on at 15:28; Start 06/08/18 at 13:00; Stop 06/09/18 at 12:21; Status DC Famotidine (Pepcid) 20 mg QHS PO Last administered on 06/08/18at 21:09; Start 06/08/18 at 21:00 Propofol 100 ml @ 0 mls/hr CONT PRN IV PER PROTOCOL Last administered on at 04:44; Start 06/08/18 at 15:30 Fentanyl Citrate (Fentanyl 2ml Vial) 25 mcg PRN Q1HR PRN IV PAIN/SEDATION Last administered on 06/11/18at 07:07; Start 06/08/18 at 15:30 Aspirin (Children'S Aspirin) 81 mg [id number] PO Last administered on at 08:35; Start 06/09/18 at 08:00 Atorvastatin Calcium (Lipitor) 20 mg HS PO Last administered on 06/08/18at 21: 09; Start 06/08/18 at 21:00 Sertraline HCl (Zoloft) 50 mg DAILY PO Last administered on 06/09/18at 08:35; Start 06/09/18 at 09:00 Sodium Chloride 1,000 ml @ 100 mls/hr Q10H IV Last administered on 06/10/18at 00:28; Start 06/08/18 at 15:30; Stop 06/10/18 at 10:44; Status DC Piperacillin Sod/ Tazobactam Sod 3.375 gm/Sodium Chloride 50 ml @ 100 mls/hr Q6HRS IV ; Start 06/08/18 at 18:00; Status UNV Piperacillin Sod/ Tazobactam Sod (Zosyn Per Pharmacy) 1 each PRN DAILY PRN MC SEE COMMENTS; Start 06/08/18 at 15:30; Stop 06/09/18 at 13:46; Status DC Piperacillin Sod/ Tazobactam Sod 2.25 gm/Sodium Chloride 50 ml @ 100 mls/hr Q6HRS IV Last administered on 06/09/18at 12:37; Start 06/08/18 at 18:00; Stop 06/09/18 at 12:44; Status DC Haloperidol Lactate (Haldol Inj) 2 mg PRN Q2HRS PRN IVP AGITATION Last administered on 06/11/18at 07:07; Start 06/09/18 at 09:45 Heparin Sodium/ Dextrose 500 ml @ 0 mls/hr CONT PRN IV SEE I/O RECORD Last administered on 06/10/18at 16:49; Start 06/09/18 at 15:00 Heparin Sodium (Porcine) (Heparin Sodium) 1,800 unit PRN Q6HRS PRN IV FOR UFH LEVEL LESS THAN 0.2 Last administered on 06/09/18at 15:07; Start 06/09/18 at 12 :15 Info (Anti-Coagulation Monitoring By Pharmacy) 1 each PRN DAILY PRN MC SEE COMMENTS; Start 06/09/18 at 12:30 Piperacillin Sod/ Tazobactam Sod 3.375 gm/Sodium Chloride 50 ml @ 100 mls/hr Q6HRS IV ; Start 06/09/18 at 18:00; Stop 06/09/18 at 18:00; Status DC Influenza Virus Vaccine (Afluria Trivalent [id number] Syringe) 0.5 ml ONCE ONCE VAX IM ; Start 06/09/18 at 18:00; Stop 06/09/18 at 18:01; Status DC Dexmedetomidine HCl 200 mcg/ Sodium Chloride 50 ml @ 0 mls/hr CONT PRN IV PER PROTOCOL Last administered on 06/10/18at 09:01; Start 06/09/18 at 19:00 Sodium Chloride 500 ml @ 500 mls/hr 1X PRN PRN IV SEE COMMENTS; Start at 19:00 Atropine Sulfate (ATROPINE 0.5mg SYRINGE) 0.5 mg PRN Q5MIN PRN IV SEE COMMENTS ; Start 06/09/18 at 19:00 Vancomycin HCl (Vanco Per Pharmacy) 1 each PRN DAILY PRN MC SEE COMMENTS; Start 06/09/18 at 21:30; Status Cancel Piperacillin Sod/ Tazobactam Sod (Zosyn Per Pharmacy) 1 each PRN DAILY PRN MC SEE COMMENTS; Start 06/09/18 at 21:30; Status Cancel Piperacillin Sod/ Tazobactam Sod 3.375 gm/Sodium Chloride 50 ml @ 100 mls/hr Q6HRS IV ; Start 06/10/18 at 00:00; Status Cancel Vancomycin HCl 1.75 gm/Sodium Chloride 500 ml @ 250 mls/hr 1X ONCE IV Last administered on 06/09/18at 21:33; Start 06/09/18 at 22:00; Stop 06/09/18 at 22 :32; Status DC Olanzapine (ZyPREXA IM) 5 mg PRN BID PRN IM agitation Last administered on at 10:28; Start 06/10/18 at 10:15 Amino Acids/ Glycerin/ Electrolytes 1,000 ml @ 80 mls/hr [id number] IV Last administered on 06/10/18at 10:25; Start 06/10/18 at 10:15 Amiodarone HCl 150 mg/Dextrose 103 ml @ 600 mls/hr 1X ONCE IV Last administered on 06/10/18at 16:15; Start 06/10/18 at 15:45; Stop 06/10/18 at 15 :55; Status DC Amiodarone HCl 900 mg/Dextrose 518 ml @ 33.33 mls/ hr CONT PRN IV SEE I/O RECORD Last administered on 06/10/18at 16:22; Start 06/10/18 at 15:15; Stop at 21:14; Status DC Amiodarone HCl 900 mg/Dextrose 518 ml @ 16.67 mls/ hr CONT PRN IV SEE I/O RECORD; Start 06/10/18 at 15:30; Stop 06/11/18 at 09:29 Amiodarone HCl (Cordarone) 200 mg DAILY PO ; Start 06/11/18 at 09:00 Active Scripts Active Reported Super B Complex (Vitamin B Complex & Vit C No.4) 150 Mg Tablet 150 Mg PO DAILY Lisinopril 10 Mg Tablet 1 Tab PO DAILY Aricept (Donepezil Hcl) 10 Mg Tablet 10 Mg PO HS Zoloft (Sertraline Hcl) 25 Mg Tablet 50 Mg PO DAILY Atorvastatin Calcium 20 Mg Tablet 20 Mg PO HS Spironolactone 25 Mg Tablet 25 Mg PO DAILY Multivitamins (Multivitamin) 1 Each Tablet 1 Tab PO DAILY Levetiracetam 500 Mg Tablet 2,000 Mg PO BID Carvedilol 6.25 Mg Tablet 6.25 Mg PO BID Aspir 81 (Aspirin) 81 Mg Tablet.dr 81 Mg PO DAILY Vitals/I & O Vital Sign - Last 24 Hours 06/10/18 06/10/18 06/10/18 06/10/18 07:54 08:00 08:00 08:31 Temp 96.5 96.5 Pulse 65 Resp 20 18 20 B/P (MAP) 115/81 (92) Pulse Ox 94 97 O2 Delivery Room Air Room Air Room Air 06/10/18 06/10/18 06/10/18 06/10/18 09:00 09:01 10:00 11:00 Temp 96.1 96.5 97.3 96.1 96.5 97.3 Pulse 60 64 64 Resp 18 20 20 B/P (MAP) 129/94 (106) 114/82 (93) 124/89 (101) Pulse Ox 99 100 97 99 O2 Delivery Room Air Room Air Room Air Room Air 06/10/18 06/10/18 06/10/18 06/10/18 12:00 12:00 12:02 13:00 Temp 97.5 98.3 97.5 98.3 Pulse 73 73 Resp 22 20 B/P (MAP) 113/80 (91) 98/69 (79) Pulse Ox 100 100 98 O2 Delivery Room Air Room Air Room Air Room Air 06/10/18 06/10/18 06/10/18 06/10/18 15:42 16:00 16:15 16:15 Pulse 76 70 B/P (MAP) 127/56 83/56 (65) Pulse Ox 99 O2 Delivery Room Air Room Air 06/10/18 06/10/18 06/10/18 06/10/18 16:16 16:24 16:47 18:00 Pulse 73 66 Resp 12 18 B/P (MAP) 93/69 (77) 107/82 (90) Pulse Ox 99 99 99 O2 Delivery Room Air Room Air Room Air 06/10/18 06/10/18 06/10/18 06/10/18 19:00 20:00 20:00 21:00 Temp 99.5 99.5 Pulse 84 83 77 Resp 18 18 18 B/P (MAP) 113/80 (91) 112/81 (91) 125/88 (100) Pulse Ox 100 100 100 O2 Delivery Room Air Room Air Room Air Room Air 06/10/18 06/10/18 06/10/18 06/10/18 22:00 23:00 23:59 23:59 Temp 98.5 98.5 Pulse 71 87 90 Resp 18 18 18 B/P (MAP) 125/82 (96) 117/78 (91) 141/95 (110) Pulse Ox 100 100 100 O2 Delivery Room Air Room Air Room Air Room Air 06/11/18 06/11/18 06/11/18 06/11/18 01:00 02:00 03:00 04:00 Pulse 75 81 75 78 Resp 18 18 18 18 B/P (MAP) 126/84 (98) 128/76 (93) 146/90 (108) 131/91 (104) Pulse Ox 97 95 84 96 O2 Delivery Room Air Room Air Room Air Room Air 06/11/18 06/11/18 06/11/18 06/11/18 04:00 05:00 06:00 07:07 Temp 98.4 98.4 Pulse 77 80 Resp 18 18 20 B/P (MAP) 131/92 (105) 140/87 (104) Pulse Ox 95 98 98 O2 Delivery Room Air Room Air Room Air Room Air Intake and Output 10/17/18 10/17/18 10/18/18 15:00 23:00 07:00 Intake Total 1421.51 ml 553 ml Output Total 695 ml 355 ml 370 ml Balance -695 ml 1066.51 ml 183 ml LESLIE NEVAREZ MD Jun 11, 2018 07:35
[2018-06-11] MEDS: IPRATRPIUM/ALBUTEROL 0.5/2.5MG 3 ML NEBU. NEB SCH ×3 (08:16→20:35)
[2018-06-11] MEDS: OLANZapine IM 10 MG VIAL. IM PRN (09:15)
--- NOTE | 2018-06-11 10:20 | PDOC ---
PULMONARY PROGRESS NOTES Subjective extubated 06/09 off precedex / less agitation Vitals Vital Signs Date Time Temp Pulse Resp B/P (MAP) Pulse Ox O2 Delivery O2 Flow Rate FiO2 06/11/18 10:00 91 16 148/102 (117) 92 Room Air 06/11/18 08:00 98.1 98.1 General: No acute distress Lungs: Other (clear) Cardiovascular: S1 Abdomen: Soft Extremities: No Edema Skin: Warm Labs Laboratory Tests Test 06/09/18 14:50 06/09/18 20:45 06/10/18 05:50 06/10/18 13:00 Troponin I Quantitative 1.106 ng/mL (0.000-0.055) Heparin Anti-Xa Act, Unfractionated 0.21 IU/mL (0.30-0.70) 0.57 IU/mL (0.30-0.70) 0.56 IU/mL (0.30-0.70) White Blood Count 5.4 x10^3/uL (4.0-11.0) Red Blood Count 3.43 x10^6/uL (4.30-5.70) Hemoglobin 11.7 g/dL (13.0-17.5) Hematocrit 33.6 % (39.0-53.0) Mean Corpuscular Volume 98 fL (79-100) Mean Corpuscular Hemoglobin 34 pg (25-35) Mean Corpuscular Hemoglobin Concent 35 g/dL (31-37) Red Cell Distribution Width 13.7 % (11.5-14.5) Platelet Count 133 x10^3/uL (140-400) Neutrophils (%) (Auto) 67 % (31-73) Lymphocytes (%) (Auto) 17 % (24-48) Monocytes (%) (Auto) 10 % (0-9) Eosinophils (%) (Auto) 5 % (0-3) Basophils (%) (Auto) 1 % (0-3) Neutrophils # (Auto) 3.6 x10^3uL (1.8-7.7) Lymphocytes # (Auto) 0.9 x10^3/uL (1.0-4.8) Monocytes # (Auto) 0.6 x10^3/uL (0.0-1.1) Eosinophils # (Auto) 0.3 x10^3/uL (0.0-0.7) Basophils # (Auto) 0.1 x10^3/uL (0.0-0.2) Sodium Level 141 mmol/L (136-145) Potassium Level 4.1 mmol/L (3.5-5.1) Chloride Level 107 mmol/L (98-107) Carbon Dioxide Level 23 mmol/L (21-32) Anion Gap 11 (6-14) Blood Urea Nitrogen 14 mg/dL (8-26) Creatinine 1.0 mg/dL (0.7-1.3) Estimated GFR (Cockcroft-Gault) 73.9 Glucose Level 114 mg/dL (70-99) Calcium Level 8.6 mg/dL (8.5-10.1) Phosphorus Level 3.1 mg/dL (2.6-4.7) Magnesium Level 2.0 mg/dL (1.8-2.4) Albumin 2.9 g/dL (3.4-5.0) Triglycerides Level 31 mg/dL (0-150) Cholesterol Level 136 mg/dL (0-200) LDL Cholesterol, Calculated 55 mg/dL (0-100) VLDL Cholesterol, Calculated 6 mg/dL (0-40) Non-HDL Cholesterol Calculated 61 mg/dL (0-129) HDL Cholesterol 75 mg/dL (40-60) Cholesterol/HDL Ratio 1.8 Test 06/10/18 19:05 06/11/18 05:40 Heparin Anti-Xa Act, Unfractionated 0.36 IU/mL (0.30-0.70) Sodium Level 139 mmol/L (136-145) Potassium Level 3.6 mmol/L (3.5-5.1) Chloride Level 104 mmol/L (98-107) Carbon Dioxide Level 23 mmol/L (21-32) Anion Gap 12 (6-14) Blood Urea Nitrogen 10 mg/dL (8-26) Creatinine 1.1 mg/dL (0.7-1.3) Estimated GFR (Cockcroft-Gault) 66.2 Glucose Level 80 mg/dL (70-99) Calcium Level 8.5 mg/dL (8.5-10.1) Phosphorus Level 2.9 mg/dL (2.6-4.7) Albumin 2.7 g/dL (3.4-5.0) Laboratory Tests Test 06/10/18 13:00 06/10/18 19:05 06/11/18 05:40 Heparin Anti-Xa Act, Unfractionated 0.56 IU/mL (0.30-0.70) 0.36 IU/mL (0.30-0.70) Sodium Level 139 mmol/L (136-145) Potassium Level 3.6 mmol/L (3.5-5.1) Chloride Level 104 mmol/L (98-107) Carbon Dioxide Level 23 mmol/L (21-32) Anion Gap 12 (6-14) Blood Urea Nitrogen 10 mg/dL (8-26) Creatinine 1.1 mg/dL (0.7-1.3) Estimated GFR (Cockcroft-Gault) 66.2 Glucose Level 80 mg/dL (70-99) Calcium Level 8.5 mg/dL (8.5-10.1) Phosphorus Level 2.9 mg/dL (2.6-4.7) Albumin 2.7 g/dL (3.4-5.0) Medications Active Scripts Medications Dose Route/Sig Max Daily Dose Days Date Category Super B Complex (Vitamin B Complex & Vit C No.4) 150 Mg Tablet 150 Mg PO DAILY 06/08/18 Reported Lisinopril 10 Mg Tablet 1 Tab PO DAILY 06/08/18 Reported Aricept (Donepezil Hcl) 10 Mg Tablet 10 Mg PO HS 01/23/18 Reported Zoloft (Sertraline Hcl) 25 Mg Tablet 50 Mg PO DAILY 01/23/18 Reported Atorvastatin Calcium 20 Mg Tablet 20 Mg PO HS 01/23/18 Reported Spironolactone 25 Mg Tablet 25 Mg PO DAILY 01/23/18 Reported Multivitamins (Multivitamin) 1 Each Tablet 1 Tab PO DAILY 08/28/14 Reported Levetiracetam 500 Mg Tablet 2,000 Mg PO BID 11/15/13 Reported Carvedilol 6.25 Mg Tablet 6.25 Mg PO BID 11/15/13 Reported Aspir 81 (Aspirin) 81 Mg Tablet.dr 81 Mg PO DAILY 11/15/13 Reported Impression . 1. Acute respiratory failure secondary to acute encephalopathy and seizure disorder. extubated 06/09 2. seizure disorder, 3. History of severe cardiomyopathy with an ejection fraction of 15%. Chest x-ray not in congestive heart failure. EF NOW 25% 4. Fever, RESOLVED .Clinically less likely pneumonia. 5. Increase troponin/ NSTMI 6. Dementia/ persistent encephalopathy. ? etiology/ started on Psych meds Plan . 1. nasal canula 2. Follow Neurology recommendations. 3. Nutrition IV for now. May start PO trial 4. Lactic acidosis related to seizures , resolved 5. Bronchodilators. 6. DVT prophylaxis. 7. Stress ulcer prophylaxis. 8. Anti-seizure medications per Neurology. 9. Resolved fever. Empiric Abx for now 10.Cardiology rec 11. Discussed with RN and DPOA. Initiated on ANANT Valdez MD Jun 11, 2018 10:20
[2018-06-11] MEDS: SERTRALINE 50 MG TABLET. PO SCH (10:29)
[2018-06-11] MEDS: AMIODARONE HCL 200 MG TABLET. PO SCH (10:30)
[2018-06-11] MEDS: ASPIRIN CHEWABLE 81 MG TABLET. PO SCH (10:30)
[2018-06-11] MEDS: levETIRAcetam 1,000 MG in IV DEXTROSE 5% 100ML 100 ML IV SCH ×2 (10:31→21:18)
[2018-06-11] MEDS: AMINO AC 3%/ELECTROLYTE/GLYCER 1,000 ML IV SCH (11:49)
[2018-06-11] MEDS: OLANZapine 5 MG TABLET PO SCH (15:56)
[2018-06-11] MEDS ORDERED: FUROSEMIDE 40 MG TABLET. PO PRN (16:15)
--- NOTE | 2018-06-11 16:20 | PDOC ---
RASHMI DIAZ [employer]ICEM[employer] 06/11/18 1620: CARDIO Progress Notes Date and Time Date of Service 06/11/2018 Time of Evaluation 1600 Subjective Subjective: No Chest Pain, No shortness of breath Vitals Vitals Vital Signs Date Time Temp Pulse Resp B/P (MAP) Pulse Ox O2 Delivery O2 Flow Rate FiO2 06/11/18 15:00 98.6 76 18 146/97 (113) 95 Room Air 98.6 Weight Weight [ ] Input and Output Intake and Output Intake and Output 06/11/18 07:00 Intake Total 1974.51 ml Output Total 1770 ml Balance 204.51 ml IV Total 1974.51 ml Output Urine Total 1770 ml Laboratory Labs Laboratory Tests Test 06/10/18 19:05 06/11/18 05:40 Heparin Anti-Xa Act, Unfractionated 0.36 IU/mL (0.30-0.70) Sodium Level 139 mmol/L (136-145) Potassium Level 3.6 mmol/L (3.5-5.1) Chloride Level 104 mmol/L (98-107) Carbon Dioxide Level 23 mmol/L (21-32) Anion Gap 12 (6-14) Blood Urea Nitrogen 10 mg/dL (8-26) Creatinine 1.1 mg/dL (0.7-1.3) Estimated GFR (Cockcroft-Gault) 66.2 Glucose Level 80 mg/dL (70-99) Calcium Level 8.5 mg/dL (8.5-10.1) Phosphorus Level 2.9 mg/dL (2.6-4.7) Albumin 2.7 g/dL (3.4-5.0) Microbiology Micro Microbiology 06/08/18 Blood Culture - Preliminary, Resulted NO GROWTH AFTER 3 DAYS Physical Exam HEENT: Neck Supple W Full Motion Chest: Symmetric LUNGS: Clear to Auscultation Heart: S1S2, RRR (SR with intermittent pacing), murmurs (2/6 systolic murmur ) Abdomen: Soft N/T Extremities: No Calf Tenderness Neurology: alert, oriented, follow commands, confused (requiring ) Assessment Assessment 1. Status epilepticus with h/o seizures: per timeline could not completely ascertain if arrhythmia induced or seizure induced arrhythmia. 2. Acute respiratory failure: extubated 06/09. on NC. pulmonary following. 3. NSTEMI: troponin peak 3.3. multifactorial given seizures and therapeutic defibrillation x2. 4. Metabolic/hypoxic encephalopathy. Remains on sedation due to agitation 5. Chronic systolic CHF: LVEF 20-25%- no significant changes from previous TTE in 05/2017. compensated. 6. Known NICM (dilated CM): s/p AICD ([facility]). Last [facility] 2014 with no CAD. Negative exercise stress test 07/2016. 7. Hx of NSVT: recent sustained VT and narrow complex as well with treatment; Device interrogation revealed normal device function. No further arrhythmia overnight. AT/AF burden <1% since 10/13/17. 8. Hypothyroidism 9. HTN: controlled 10. HLP 11. JESE on CKD; improved. very good UOP 12. Lactic acidosis; resolved Recommendations 1. DC heparin. Continue ASA. Continue with po amiodarone. Lasix PRN 2. Follow neurology recommendations. 3. Now tolerating PO. DC IVF. Start back on coreg per BP trend 4. Will plan for MPI prior to DC. Lipids are well controlled. Continue with secondary prevention measures. . JUANI HUNG MD 06/12/18 1010: CARDIO Progress Notes Assessment Assessment Patient seen and examined 06/11/18. Agree with SHOW HOST/HOSTESS's assessment and plan. No further episodes of VT overnight. Continue amiodarone. Agree with stopping heparin infusion. Plan for ischemic evaluation prior to discharge or as an outpatient. Continue current treatment per neurology team. RASHMI DIAZ APRN Jun 11, 2018 16:20 JUANI HUNG MD Jun 12, 2018 10:10
[2018-06-11] MEDS: CARVEDILOL 6.25 MG TABLET. PO SCH (16:54)
--- NOTE | 2018-06-11 18:22 | PDOC ---
PROGRESS NOTES Assessment Assessment Status epilepticus. Seizure. Metabolic encephalopathy. Respiratory failure. Lactic acidosis. NSTEMI likely. DM? Cerebral capillary telangiectasia? HTN. HLD. Hypothyroidism. Pacemaker in site. RECOMMENDATIONS/PLAN: Keppra 1000 mg IV q12h. Fosphenytoin administrated in ER. EEG performed. Treat NSTEMI per cardiology. MRI not obtained due to pacemaker. Discussed with his sisters at bedside on 06/11/18. HISTORY OF THE PRESENT ILLNESS: 72-y-old patient with Hx of seizure and has been treated with Keppra. He had mental status changes, unresponsiveness and convulsions noted byt his family to be brought to the ER of [facility]. He was intubated in the ER due to unable to maintain upper airway from seizing. Phenytoin was administrated in the ER to control his convulsion. No clinic seizures since in ICU. Extubated on 06/09/18. Past Medical History Cardiovascular: HTN, Hyperlipidemia Pulmonary: No pertinent hx CENTRAL NERVOUS SYSTEM: Seizure GI: No pertinent hx Heme/Onc: No pertinent hx Hepatobiliary: No pertinent hx Psych: No pertinent hx Rheumatologic: No pertinent hx Infectious disease: No pertinent hx Renal/: No pertinent hx Endocrine: No pertinent hx Past Surgical History Appendectomy Family History Unknown Social History Smoke: No ALCOHOL: none Drugs: None ALLERGY: Reviewed. MEDICATIONS: Refer to [facility] REVIEW OF SYSTEMS: Constitutional: No malnutrition, weight loss, cachexia. Head: No recent traumatic brain or head injury. Skin: No edema, or rash. Ear: No infection. Eyes: No vision loss or color blindness. Nose: No bleeding or purulent discharges. Hearing: Hearing decrease. Neck: No injury. Cardiac: Pacemaker Placement, HTN, HLD. Pulmonary: No COPD. GI: No GI ulcer, GI bleeding. Urinary/genital: UTI. Endocrinologic: Diabetes Mellitus? Skeletomuscular: No muscular atrophy, deformity. Neurological: see HP. Psychiatric: Denies drug use/abuse. Otherwise, not [id number] review of systems. PHYSICAL EXAMINATION: General appearance is in subacute distress. HEENT: Normocephalic and nontraumatic. Eyes, nose, ears, and throat are unremarkable. Neck is supple. No lymphadenopathy.No crepitus. Cardiovascular: S1, S2, regular rate and rhythm. Pulmonary: On vent. Abdomen: Bowel sounds are positive. Extremities: No rash, lesions, or edema. No restriction of range of motion NEUROLOGICAL EXAMINATION: Drowsiness. Not oriented to time, place but knew his family members. PERRL. EOMI. CN: no acute focal findings. Muscle tone: fluctuated. Muscle strength: 4+ DTR: 1-2 Plantar reflex: Extensor response in right side. Neutral response in left side. Gait: Not examined in bed. Sensory exam: no abnormal findings. No acute cerebellar signs elicited. F-T-N test not performed due to not follow commands. Objective Objective Vital Signs Date Time Temp Pulse Resp B/P (MAP) Pulse Ox O2 Delivery O2 Flow Rate FiO2 06/11/18 16:54 83 104/70 06/11/18 16:30 95 Room Air 06/11/18 15:00 98.6 18 98.6 Intake and Output 06/11/18 07:00 Intake Total 1974.51 ml Output Total 1770 ml Balance 204.51 ml IV Total 1974.51 ml Output Urine Total 1770 ml Vitals Signs Vitals VS - Last 72 Hours, by Label Date Time Temp Pulse Resp B/P (MAP) Pulse Ox O2 Delivery O2 Flow Rate FiO2 06/11/18 16:54 83 104/70 06/11/18 16:30 95 Room Air 06/11/18 15:00 98.6 76 18 146/97 (113) 95 Room Air 98.6 06/11/18 13:00 69 18 134/80 (98) 94 Room Air 06/11/18 12:00 Room Air 06/11/18 12:00 98.4 74 16 126/97 (107) 97 Room Air 98.4 06/11/18 11:48 95 Room Air 06/11/18 11:00 96 18 118/92 (101) 93 Room Air 06/11/18 10:30 91 148/102 06/11/18 10:00 91 16 148/102 (117) 92 Room Air 06/11/18 09:00 92 18 151/97 (115) 94 Room Air 06/11/18 08:17 96 Room Air 06/11/18 08:05 18 98 Room Air 06/11/18 08:00 Room Air 06/11/18 08:00 98.1 71 18 131/95 (107) 95 Room Air 98.1 06/11/18 07:07 20 98 Room Air 10/18/18 07:00 72 18 138/72 (94) 95 Room Air 06/11/18 06:00 80 18 140/87 (104) 98 Room Air 06/11/18 05:00 98.4 77 18 131/92 (105) 95 Room Air 98.4 06/11/18 04:00 Room Air 06/11/18 04:00 78 18 131/91 (104) 96 Room Air 06/11/18 03:00 75 18 146/90 (108) 84 Room Air 06/11/18 02:00 81 18 128/76 (93) 95 Room Air 06/11/18 01:00 75 18 126/84 (98) 97 Room Air 06/10/18 23:59 Room Air 06/10/18 23:59 98.5 90 18 141/95 (110) 100 Room Air 98.5 06/10/18 23:00 87 18 117/78 (91) 100 Room Air 06/10/18 22:00 71 18 125/82 (96) 100 Room Air 06/10/18 21:00 77 18 125/88 (100) 100 Room Air 06/10/18 20:00 99.5 83 18 112/81 (91) 100 Room Air 99.5 06/10/18 20:00 Room Air 06/10/18 19:00 84 18 113/80 (91) 100 Room Air 06/10/18 18:00 66 18 107/82 (90) 99 Room Air 06/10/18 16:24 73 93/69 (77) 06/10/18 16:16 12 99 Room Air 06/10/18 16:15 70 83/56 (65) 06/10/18 16:15 76 127/56 06/10/18 16:00 Room Air 06/10/18 15:42 99 Room Air 06/10/18 13:00 98.3 73 20 98/69 (79) 98 Room Air 98.3 06/10/18 12:02 100 Room Air 06/10/18 12:00 97.5 73 22 113/80 (91) 100 Room Air 97.5 06/10/18 12:00 Room Air 06/10/18 11:00 97.3 64 20 124/89 (101) 99 Room Air 97.3 06/10/18 10:00 96.5 64 20 114/82 (93) 97 Room Air 96.5 06/10/18 09:01 100 Room Air 06/10/18 09:00 96.1 60 18 129/94 (106) 99 Room Air 96.1 06/10/18 08:00 96.5 65 18 115/81 (92) 97 Room Air 96.5 06/10/18 08:00 Room Air 06/10/18 07:54 20 94 Room Air 06/10/18 07:00 66 20 129/86 (100) 94 Room Air Laboratory Laboratory Laboratory Tests Test 06/10/18 19:05 06/11/18 05:40 Heparin Anti-Xa Act, Unfractionated 0.36 IU/mL (0.30-0.70) Sodium Level 139 mmol/L (136-145) Potassium Level 3.6 mmol/L (3.5-5.1) Chloride Level 104 mmol/L (98-107) Carbon Dioxide Level 23 mmol/L (21-32) Anion Gap 12 (6-14) Blood Urea Nitrogen 10 mg/dL (8-26) Creatinine 1.1 mg/dL (0.7-1.3) Estimated GFR (Cockcroft-Gault) 66.2 Glucose Level 80 mg/dL (70-99) Calcium Level 8.5 mg/dL (8.5-10.1) Phosphorus Level 2.9 mg/dL (2.6-4.7) Albumin 2.7 g/dL (3.4-5.0) Microbiology 06/08/18 Blood Culture - Preliminary, Resulted NO GROWTH AFTER 3 DAYS Medication Medications Current Medications Amiodarone HCl (Cordarone) 200 mg DAILY PO Last administered on 06/11/18at 10: 30; Start 06/11/18 at 09:00 Carvedilol (Coreg) 6.25 mg BIDWMEALS PO Last administered on 06/11/18at 16:54; Start 06/11/18 at 17:00 Furosemide (Lasix) 40 mg PRN DAILY PRN PO SEE COMMENTS; Start 06/11/18 at 16: 15 Olanzapine (ZyPREXA) 5 mg BID PO Last administered on 06/11/18at 15:56; Start 06/11/18 at 15:30 Comment Review of Relevant I have reviewed the following items sharee (where applicable) has been applied. PITO SUMNER MD Jun 11, 2018 18:22
[2018-06-11] MEDS: ATORVASTATIN CALCIUM 20 MG TABLET PO SCH (21:18)
[2018-06-11] MEDS: FAMOTIDINE 20 MG TABLET. PO SCH (21:18)
[2018-06-12] MEDS: OLANZapine 5 MG TABLET PO SCH ×3 (00:39→21:00)
[2018-06-12 02:00] VITALS: BP 148/100
[2018-06-12] MEDS ORDERED: DEXTROSE 50% 25 GM / 50ML DISP.SYRIN. IV ONE ×2 (06:00→06:04)
[2018-06-12 06:57] LABS: CALCIUM 9.5 mg/dL (8.5-10.1); CREATININE 1.1 mg/dL (0.7-1.3); GFR 66.2; MAGNESIUM 1.6 mg/dL (1.8-2.4); POTASSIUM 3.7 mmol/L (3.5-5.1)
[2018-06-12 07:06] VITALS: BP 152/95
[2018-06-12] MEDS: IPRATRPIUM/ALBUTEROL 0.5/2.5MG 3 ML NEBU. NEB SCH ×4 (07:24→19:55)
[2018-06-12] MEDS ORDERED: MAGNESIUM SULFATE 2GM 50 ML IV ONE (07:30)
[2018-06-12] MEDS ORDERED: REGADENOSON 0.4 MG/5 ML DISP.SYRIN. IV ONE (08:00)
[2018-06-12] MEDS: HALOPERIDOL LACTATE 5 MG/ML VIAL. IVP PRN (08:05)
[2018-06-12] MEDS: levETIRAcetam 1,000 MG in IV DEXTROSE 5% 100ML 100 ML IV SCH ×2 (09:38→21:11)
[2018-06-12 11:24] VITALS: BP 109/65
[2018-06-12] MEDS: ASPIRIN CHEWABLE 81 MG TABLET. PO SCH (11:35)
--- NOTE | 2018-06-12 11:35 | PDOC ---
PROGRESS NOTES Chief Complaint Chief Complaint Seizure Respiratory failure, hypoxia History of Present Illness History of Present Illness Patient is a 72 year old male who presents with seizure. roll tender found him seizing 06/08/18, unresponsive and called EMS. He was dced here 4 months ago for seizure, takes keppra for now. Pt seen in ICU, extubated 06/09. EEG bedside in ICU 06/08 Overnight became less agitated, haldol, responsive to IM zyprexa 5mg. Still not awake enough to work with RNFA. Agitated, hallucinations visually today. A/P: Epilepy status - initially requiring intubated, cont keppra, consulted neuro. No further seizures Acute resp failure with seizure - intubated for hypoxia with seizure, s/p extubation 06/09 AMS, with seizure - has baseline dementia, he is not back to his baseline per family, possibly ICU delerium, will add zyprexa IM 5mg BID prn for agitation JESE, vasomotor - likely from seizure, fluids Lactate acidosis - likely seizure related, was given zosyn for possible aspiration, off antibiotics now, no further fevers Elevated troponin - with h/o CHF consulted cardiology, trended down Hypotension - improved, off levophed H/o Systolic CHF - consulted cardiology Dementia - light during day. Family nearby. Zyprexa IM or oral haldol prn agitation. HTN - po meds HLD - can take po h/o epilepsy - having trouble with meds, cont keppra PPM - interrogate today Depression - related to dementia plan: CVC Care now RNFA -->advance diet, sitting up dvt, gi ppx on keppra iv bid labs daily FULL CODE Wards ok Vitals Vitals Vital Signs Date Time Temp Pulse Resp B/P (MAP) Pulse Ox O2 Delivery O2 Flow Rate FiO2 06/12/18 11:24 98.8 74 26 109/65 (80) 92 Room Air 98.8 Physical Exam General: Alert, Cooperative, mild distress Heart: Regular rate, Normal S1, Normal S2 Lungs: Other (clear) Abdomen: Normal bowel sounds, Soft, No tenderness Extremities: No clubbing, No cyanosis, No edema Skin: No rashes, No significant lesion Labs LABS Laboratory Tests Test 06/11/18 19:30 06/12/18 06:12 06/12/18 06:15 Heparin Anti-Xa Act, Unfractionated < 0.10 IU/mL (0.30-0.70) Glucose (Fingerstick) 88 mg/dL (70-99) Sodium Level 143 mmol/L (136-145) Potassium Level 3.7 mmol/L (3.5-5.1) Chloride Level 106 mmol/L (98-107) Carbon Dioxide Level 26 mmol/L (21-32) Anion Gap 11 (6-14) Blood Urea Nitrogen 10 mg/dL (8-26) Creatinine 1.1 mg/dL (0.7-1.3) Estimated GFR (Cockcroft-Gault) 66.2 Glucose Level 89 mg/dL (70-99) Calcium Level 9.5 mg/dL (8.5-10.1) Magnesium Level 1.6 mg/dL (1.8-2.4) Comment Review of Relevant I have reviewed the following items sharee (where applicable) has been applied. Labs Laboratory Tests Test 06/10/18 13:00 06/10/18 19:05 06/11/18 05:40 06/11/18 19:30 Heparin Anti-Xa Act, Unfractionated 0.56 IU/mL (0.30-0.70) 0.36 IU/mL (0.30-0.70) < 0.10 IU/mL (0.30-0.70) Sodium Level 139 mmol/L (136-145) Potassium Level 3.6 mmol/L (3.5-5.1) Chloride Level 104 mmol/L (98-107) Carbon Dioxide Level 23 mmol/L (21-32) Anion Gap 12 (6-14) Blood Urea Nitrogen 10 mg/dL (8-26) Creatinine 1.1 mg/dL (0.7-1.3) Estimated GFR (Cockcroft-Gault) 66.2 Glucose Level 80 mg/dL (70-99) Calcium Level 8.5 mg/dL (8.5-10.1) Phosphorus Level 2.9 mg/dL (2.6-4.7) Albumin 2.7 g/dL (3.4-5.0) Test 06/12/18 06:12 06/12/18 06:15 Glucose (Fingerstick) 88 mg/dL (70-99) Sodium Level 143 mmol/L (136-145) Potassium Level 3.7 mmol/L (3.5-5.1) Chloride Level 106 mmol/L (98-107) Carbon Dioxide Level 26 mmol/L (21-32) Anion Gap 11 (6-14) Blood Urea Nitrogen 10 mg/dL (8-26) Creatinine 1.1 mg/dL (0.7-1.3) Estimated GFR (Cockcroft-Gault) 66.2 Glucose Level 89 mg/dL (70-99) Calcium Level 9.5 mg/dL (8.5-10.1) Magnesium Level 1.6 mg/dL (1.8-2.4) Laboratory Tests Test 06/11/18 19:30 06/12/18 06:12 06/12/18 06:15 Heparin Anti-Xa Act, Unfractionated < 0.10 IU/mL (0.30-0.70) Glucose (Fingerstick) 88 mg/dL (70-99) Sodium Level 143 mmol/L (136-145) Potassium Level 3.7 mmol/L (3.5-5.1) Chloride Level 106 mmol/L (98-107) Carbon Dioxide Level 26 mmol/L (21-32) Anion Gap 11 (6-14) Blood Urea Nitrogen 10 mg/dL (8-26) Creatinine 1.1 mg/dL (0.7-1.3) Estimated GFR (Cockcroft-Gault) 66.2 Glucose Level 89 mg/dL (70-99) Calcium Level 9.5 mg/dL (8.5-10.1) Magnesium Level 1.6 mg/dL (1.8-2.4) Microbiology 06/08/18 Blood Culture - Preliminary, Resulted NO GROWTH AFTER 4 DAYS Medications Current Medications Levetiracetam 1000 mg/Sodium Chloride 110 ml @ 440 mls/hr 1X ONCE IV Last administered on 06/08/18at 09:03; Start 06/08/18 at 08:45; Stop 06/08/18 at 08 :59; Status DC Propofol (Diprivan) 200 mg 1X ONCE IV Last administered on 06/08/18at 08:52; Start 06/08/18 at 08:45; Stop 06/08/18 at 08:47; Status DC Sodium Chloride 1,000 ml @ 1,000 mls/hr 1X ONCE IV Last administered on 06/08at 09:03; Start 06/08/18 at 08:45; Stop 06/08/18 at 09:44; Status DC Sodium Chloride 1,000 ml @ 1,000 mls/hr 1X ONCE IV Last administered on 06/08at 09:03; Start 06/08/18 at 08:45; Stop 06/08/18 at 09:44; Status DC Etomidate (Amidate) 20 mg 1X ONCE IV Last administered on 06/08/18at 08:37; Start 06/08/18 at 08:45; Stop 06/08/18 at 08:47; Status DC Succinylcholine Chloride (Anectine) 100 mg 1X ONCE IV Last administered on at 08:38; Start 06/08/18 at 08:45; Stop 06/08/18 at 08:47; Status DC Propofol 50 ml @ As Directed STK-MED ONCE IV ; Start 06/08/18 at 08:49; Stop 06/08/18 at 08:50; Status DC Midazolam HCl (Versed) 4 mg 1X ONCE IV Last administered on 06/08/18at 09:13; Start 06/08/18 at 09:00; Stop 06/08/18 at 09:03; Status DC Fosphenytoin Sodium 1400 mg/ Sodium Chloride 78 ml @ 312 mls/hr 1X ONCE IV Last administered on 06/08/18at 09:46; Start 06/08/18 at 09:30; Stop 06/08/18 at 09:44; Status DC Norepinephrine Bitartrate 250 ml @ As Directed STK-MED ONCE IV ; Start at 10:11; Stop 06/08/18 at 10:12; Status DC Aspirin (Aspirin) 300 mg 1X STAT NV Last administered on 06/08/18at 10:36; Start 06/08/18 at 10:14; Stop 06/08/18 at 10:17; Status DC Norepinephrine Bitartrate 250 ml @ 1.875 mls/ hr CONT PRN IV SEE I/O RECORD Last administered on 06/09/18at 04:44; Start 06/08/18 at 10:30; Stop 06/11/18 at 20:26; Status DC Piperacillin Sod/ Tazobactam Sod 3.375 gm/Sodium Chloride 50 ml @ 100 mls/hr 1X ONCE IV Last administered on 06/08/18at 11:17; Start 06/08/18 at 10:30; Stop 06/08/18 at 10:59; Status DC Levetiracetam 1000 mg/Dextrose 110 ml @ 440 mls/hr BID IV Last administered on 06/12/18at 09:38; Start 06/08/18 at 21:00 Albuterol/ Ipratropium (Duoneb) 3 ml RTQID NEB Last administered on 06/11/18at 20:35; Start 06/08/18 at 12:30 Enoxaparin Sodium (Lovenox 40mg Syringe) 40 mg Q24H SQ Last administered on at 15:28; Start 06/08/18 at 13:00; Stop 06/09/18 at 12:21; Status DC Famotidine (Pepcid) 20 mg QHS PO Last administered on 06/11/18at 21:18; Start 06/08/18 at 21:00 Propofol 100 ml @ 0 mls/hr CONT PRN IV PER PROTOCOL Last administered on at 04:44; Start 06/08/18 at 15:30; Stop 06/11/18 at 20:26; Status DC Fentanyl Citrate (Fentanyl 2ml Vial) 25 mcg PRN Q1HR PRN IV PAIN/SEDATION Last administered on 06/11/18at 07:07; Start 06/08/18 at 15:30 Aspirin (Children'S Aspirin) 81 mg DAILYWBKFT PO Last administered on at 10:30; Start 06/09/18 at 08:00 Atorvastatin Calcium (Lipitor) 20 mg HS PO Last administered on 06/11/18at 21: 18; Start 06/08/18 at 21:00 Sertraline HCl (Zoloft) 50 mg DAILY PO Last administered on 06/11/18at 10:29; Start 06/09/18 at 09:00 Sodium Chloride 1,000 ml @ 100 mls/hr Q10H IV Last administered on 06/10/18at 00:28; Start 06/08/18 at 15:30; Stop 06/10/18 at 10:44; Status DC Piperacillin Sod/ Tazobactam Sod 3.375 gm/Sodium Chloride 50 ml @ 100 mls/hr Q6HRS IV ; Start 06/08/18 at 18:00; Status UNV Piperacillin Sod/ Tazobactam Sod (Zosyn Per Pharmacy) 1 each PRN DAILY PRN MC SEE COMMENTS; Start 06/08/18 at 15:30; Stop 06/09/18 at 13:46; Status DC Piperacillin Sod/ Tazobactam Sod 2.25 gm/Sodium Chloride 50 ml @ 100 mls/hr Q6HRS IV Last administered on 06/09/18at 12:37; Start 06/08/18 at 18:00; Stop 06/09/18 at 12:44; Status DC Haloperidol Lactate (Haldol Inj) 2 mg PRN Q2HRS PRN IVP AGITATION Last administered on 06/12/18at 08:05; Start 06/09/18 at 09:45 Heparin Sodium/ Dextrose 500 ml @ 0 mls/hr CONT PRN IV SEE I/O RECORD Last administered on 06/10/18at 16:49; Start 06/09/18 at 15:00; Stop 06/11/18 at 14 :20; Status DC Heparin Sodium (Porcine) (Heparin Sodium) 1,800 unit PRN Q6HRS PRN IV FOR UFH LEVEL LESS THAN 0.2 Last administered on 06/09/18at 15:07; Start 06/09/18 at 12 :15; Stop 06/11/18 at 14:20; Status DC Info (Anti-Coagulation Monitoring By Pharmacy) 1 each PRN DAILY PRN MC SEE COMMENTS Last administered on 06/11/18at 10:47; Start 06/09/18 at 12:30; Stop 06/12/18 at 09:39; Status DC Piperacillin Sod/ Tazobactam Sod 3.375 gm/Sodium Chloride 50 ml @ 100 mls/hr Q6HRS IV ; Start 06/09/18 at 18:00; Stop 06/09/18 at 18:00; Status DC Influenza Virus Vaccine (Afluria Trivalent 1608-0409 Syringe) 0.5 ml ONCE ONCE VAX IM Last administered on 06/11/18at 16:57; Start 06/09/18 at 18:00; Stop 06/09/18 at 18:01; Status DC Dexmedetomidine HCl 200 mcg/ Sodium Chloride 50 ml @ 0 mls/hr CONT PRN IV PER PROTOCOL Last administered on 06/10/18at 09:01; Start 06/09/18 at 19:00; Stop 06/11/18 at 20:26; Status DC Sodium Chloride 500 ml @ 500 mls/hr 1X PRN PRN IV SEE COMMENTS; Start at 19:00 Atropine Sulfate (ATROPINE 0.5mg SYRINGE) 0.5 mg PRN Q5MIN PRN IV SEE COMMENTS ; Start 06/09/18 at 19:00 Vancomycin HCl (Vanco Per Pharmacy) 1 each PRN DAILY PRN MC SEE COMMENTS; Start 06/09/18 at 21:30; Status Cancel Piperacillin Sod/ Tazobactam Sod (Zosyn Per Pharmacy) 1 each PRN DAILY PRN MC SEE COMMENTS; Start 06/09/18 at 21:30; Status Cancel Piperacillin Sod/ Tazobactam Sod 3.375 gm/Sodium Chloride 50 ml @ 100 mls/hr Q6HRS IV ; Start 06/10/18 at 00:00; Status Cancel Vancomycin HCl 1.75 gm/Sodium Chloride 500 ml @ 250 mls/hr 1X ONCE IV Last administered on 06/09/18at 21:33; Start 06/09/18 at 22:00; Stop 06/09/18 at 22 :32; Status DC Olanzapine (ZyPREXA IM) 5 mg PRN BID PRN IM agitation Last administered on at 09:15; Start 06/10/18 at 10:15 Amino Acids/ Glycerin/ Electrolytes 1,000 ml @ 80 mls/hr [id number] IV Last administered on 06/11/18at 11:49; Start 06/10/18 at 10:15; Stop 06/11/18 at 16 :27; Status DC Amiodarone HCl 150 mg/Dextrose 103 ml @ 600 mls/hr 1X ONCE IV Last administered on 06/10/18at 16:15; Start 06/10/18 at 15:45; Stop 06/10/18 at 15 :55; Status DC Amiodarone HCl 900 mg/Dextrose 518 ml @ 33.33 mls/ hr CONT PRN IV SEE I/O RECORD Last administered on 06/10/18at 16:22; Start 06/10/18 at 15:15; Stop at 21:14; Status DC Amiodarone HCl 900 mg/Dextrose 518 ml @ 16.67 mls/ hr CONT PRN IV SEE I/O RECORD; Start 06/10/18 at 15:30; Stop 06/11/18 at 09:29; Status DC Amiodarone HCl (Cordarone) 200 mg DAILY PO Last administered on 06/11/18at 10: 30; Start 06/11/18 at 09:00 Olanzapine (ZyPREXA) 5 mg BID PO Last administered on 06/12/18at 00:39; Start 06/11/18 at 15:30 Furosemide (Lasix) 40 mg PRN DAILY PRN PO SEE COMMENTS; Start 06/11/18 at 16: 15 Carvedilol (Coreg) 6.25 mg BIDWMEALS PO Last administered on 06/11/18at 16:54; Start 06/11/18 at 17:00 Dextrose (Dextrose 50%-Water Syringe) 25 gm STK-MED ONCE IV ; Start 06/12/18 at 06:04; Stop 06/12/18 at 06:05; Status DC Magnesium Sulfate 50 ml @ 25 mls/hr 1X ONCE IV Last administered on at 09:38; Start 06/12/18 at 07:30; Stop 06/12/18 at 09:29; Status DC Regadenoson (Lexiscan) 0.4 mg 1X ONCE IV Last administered on 06/12/18at 11:06 ; Start 06/12/18 at 08:00; Stop 06/12/18 at 08:01; Status DC Dextrose (Dextrose 50%-Water Syringe) 25 gm STK-MED ONCE IV ; Start 06/12/18 at 06:00; Stop 06/12/18 at 08:37; Status DC Active Scripts Active Reported Super B Complex (Vitamin B Complex & Vit C No.4) 150 Mg Tablet 150 Mg PO DAILY Lisinopril 10 Mg Tablet 1 Tab PO DAILY Aricept (Donepezil Hcl) 10 Mg Tablet 10 Mg PO HS Zoloft (Sertraline Hcl) 25 Mg Tablet 50 Mg PO DAILY Atorvastatin Calcium 20 Mg Tablet 20 Mg PO HS Spironolactone 25 Mg Tablet 25 Mg PO DAILY Multivitamins (Multivitamin) 1 Each Tablet 1 Tab PO DAILY Levetiracetam 500 Mg Tablet 2,000 Mg PO BID Carvedilol 6.25 Mg Tablet 6.25 Mg PO BID Aspir 81 (Aspirin) 81 Mg Tablet. 81 Mg PO DAILY Vitals/I & O Vital Sign - Last 24 Hours 06/11/18 06/11/18 06/11/18 06/11/18 11:48 12:00 12:00 13:00 Temp 98.4 98.4 Pulse 74 69 Resp 16 18 B/P (MAP) 126/97 (107) 134/80 (98) Pulse Ox 95 97 94 O2 Delivery Room Air Room Air Room Air Room Air 06/11/18 06/11/18 06/11/18 06/11/18 15:00 16:30 16:54 19:35 Temp 98.6 98.4 98.6 98.4 Pulse 76 83 69 Resp 18 18 B/P (MAP) 146/97 (113) 104/70 122/77 (92) Pulse Ox 95 95 96 O2 Delivery Room Air Room Air Room Air 06/11/18 06/11/18 06/11/18 06/12/18 20:00 20:32 22:00 02:00 Temp 97.9 97.4 97.9 97.4 Pulse 77 77 Resp 18 18 B/P (MAP) 135/89 (104) 148/100 (116) Pulse Ox 91 95 95 O2 Delivery Room Air Room Air Room Air Room Air 06/12/18 06/12/18 06/12/18 07:06 07:45 11:24 Temp 98.2 98.8 98.2 98.8 Pulse 79 74 Resp 30 26 B/P (MAP) 152/95 (114) 109/65 (80) Pulse Ox 93 92 O2 Delivery Room Air Room Air Room Air Intake and Output 06/11/18 06/11/18 06/12/18 15:00 23:00 07:00 Intake Total 301.5 ml 340 ml Output Total 1400 ml 350 ml 1800 ml Balance -1098.5 ml -10 ml -1800 ml LESLIE NEVAREZ MD Jun 12, 2018 11:35
[2018-06-12] MEDS: AMIODARONE HCL 200 MG TABLET. PO SCH (11:37)
[2018-06-12] MEDS: SERTRALINE 50 MG TABLET. PO SCH (11:38)
[2018-06-12] MEDS: CARVEDILOL 6.25 MG TABLET. PO SCH ×2 (11:46→17:51)
--- NOTE | 2018-06-12 14:21 | RAD ---
MR#: [id number] Date of Study: 06/12/2018 Ordering Physician: RASHMI DIAZ, Referring Physician: NEELIMA FARIAS Tech: RT Eulogio (R) (N) APPROVED REPORT Test Type: Pharmacological Stress Nurse/Tech: Keyonna Spivey R.N. Test Indications: elev. tropinin Cardiac History: Hypertension, pacemaker Medications: See Electronic Medical Record Medical History: See Electronic Medical Record Resting ECG: NSR Resting Heart Rate: 90 bpm Resting Blood Pressure: 130/80mmHg Pretest Chest Pain: No chest pain Nurse/Tech Notes S1S2, coarse breath sounds bam. Pt disoriented and confused Consent: The procedure was explained to the patient in lay terms. Informed consent was witnessed. Jose David eout was entered into [employer]. History and Stress Test performed by Keyonna Spivey R.N. Pharm. Details Pharmacologic stress testing was performed using 0.4mg per 5ml of regadenoson given intravenously ove r 7-10 seconds. Stress Symptoms No chest pain or symptoms. pt not able to answer question approp., but seemed to tolerate the lexisca n okay. POST EXERCISE Reason for Termination: Infusion complete Target HR: 127 Max HR: 111 bpm Max Blood Pressure: 132/67mmHg Blood Pressure response to exercise: Normal blood pressure response during stress. Chest Pain: . pt was not able to answer if he had any pain due to his confusion Arrhythmia: Yes. occ PVC and PAC ST Change: No. INTERPRETATION Stress EKG Conclusion: Baseline EKG showed sinus rhythm with LVH and possible old anteroseptal infarc t. Non diagnostic changes at peak stress. No arrhythmias. Imaging Protocol IMAGE PROTOCOL: Rest Tc-99m/stress Tc-99m 1 day Rest: Stress: Viability: Radiopharm.Tc99m [id number] Sestamibi [id number] 34.6mCi Duration 13min. 13min. Img Date 06/12/2018 06/12/2018 Inj-Img [id number]. 60min. Rest Admin Site:IV - Left ForearmAdministrator:RT Bassam Krishnan)(N) Stress Admin Site: IV - Left ForearmAdministrator: Tiana Hyman RT (R)(N) STRESS DATA End Diast. Vol.247.0mlLVEDV index BTM876.0ml End Syst. Vol.197.0mlLVESV index XTX262.0ml Myocardial Eene641.0gEject. Zxkxkyas80.0% Stress Scores Regional WT3.00Summed WT44.00 Regional WM1.00Summed WM49.00 LV Perfusion Scintigraphic images did not show any significant fixed or reversible defects. Wall Motion Severe left ventricle systolic dysfunction with ejection fraction calculated at 20%. LV Perf. Quant 17 Seg. SSS1.00 17 Seg. SRS1.00 17 Seg. SDS1.00 Stress Defect Extent (% LAD)0.00Rest Defect Extent (% LAD)0.60Rev. Defect Extent (% LAD)0.00 Stress Defect Extent (% LCX) 7.50Rest Defect Extent (% LCX)22.50Rev. Defect Extent (% LCX)0.00 Stress Defect Extent (% RCA)0.00Rest Defect Extent (% RCA)0.00Rev. Defect Extent (% RCA)0.00 Stress Defect Extent (% VICKIE)2.60Rest Defect Extent (% VICKIE)4.60Rev. Defect Extent (% VICKIE)0.00 Conclusion 1. Regadenoson cardioisotope stress test did not show any evidence of ischemia or infarct. 2. Severe left ventricle systolic dysfunction with ejection fraction calculated at 20%. 3. Intermediate risk for cardiac events based on diminished left ventricle systolic function. Signed by : Lance Sue, Electronically Approved : 06/12/2018 14:20:11
--- NOTE | 2018-06-12 14:25 | PDOC ---
RASHMI DIAZ TAB CARD PRESS OPERATOR 06/12/18 1425: CARDIO Progress Notes Date and Time Date of Service 06/12/2018 Time of Evaluation 1430 Subjective Subjective: No Chest Pain, No shortness of breath Vitals Vitals Vital Signs Date Time Temp Pulse Resp B/P (MAP) Pulse Ox O2 Delivery O2 Flow Rate FiO2 06/12/18 12:15 91 Room Air 06/12/18 11:46 74 109/65 06/12/18 11:24 98.8 26 98.8 Weight Weight [ ] Input and Output Intake and Output Intake and Output 06/12/18 07:00 Intake Total 641.5 ml Output Total 3550 ml Balance -2908.5 ml Intake Oral 100 ml IV Total 541.5 ml Output Urine Total 3550 ml Laboratory Labs Laboratory Tests Test 06/11/18 19:30 06/12/18 06:12 06/12/18 06:15 Heparin Anti-Xa Act, Unfractionated < 0.10 IU/mL (0.30-0.70) Glucose (Fingerstick) 88 mg/dL (70-99) Sodium Level 143 mmol/L (136-145) Potassium Level 3.7 mmol/L (3.5-5.1) Chloride Level 106 mmol/L (98-107) Carbon Dioxide Level 26 mmol/L (21-32) Anion Gap 11 (6-14) Blood Urea Nitrogen 10 mg/dL (8-26) Creatinine 1.1 mg/dL (0.7-1.3) Estimated GFR (Cockcroft-Gault) 66.2 Glucose Level 89 mg/dL (70-99) Calcium Level 9.5 mg/dL (8.5-10.1) Magnesium Level 1.6 mg/dL (1.8-2.4) Microbiology Micro Microbiology 06/08/18 Blood Culture - Preliminary, Resulted NO GROWTH AFTER 4 DAYS Physical Exam HEENT: Neck Supple W Full Motion Chest: Symmetric LUNGS: Clear to Auscultation Heart: S1S2, RRR (SR with intermittent pacing), murmurs (2/6 systolic murmur ) Abdomen: Soft N/T Extremities: No Calf Tenderness Neurology: alert, confused (confuse) Assessment Assessment 1. Status epilepticus with h/o seizures: per timeline could not completely ascertain if arrhythmia induced or seizure induced arrhythmia. 2. Acute respiratory failure: extubated 06/09, much improved. pulmonary following. 3. NSTEMI: troponin peaked 3.3. multifactorial given seizures and therapeutic defibrillation x2. MPI with no reversible defect, 4. Metabolic/hypoxic encephalopathy. more confuse today. on 1:1 today 5. Chronic systolic CHF: LVEF 20-25%- no significant changes from previous TTE in 05/2017. remains compensated. 6. Known NICM (dilated CM): s/p AICD ([facility]). Last [facility] 2014 with no CAD. Negative exercise stress test 07/2016. 7. Hx of NSVT: recent sustained VT and narrow complex as well with treatment; Device interrogation revealed normal device function. No further arrhythmia overnight. AT/AF burden <1% since 10/13/17. 8. Hypothyroidism 9. HTN: controlled 10. HLP 11. JESE on CKD; resolved 12. Lactic acidosis; resolved Recommendations 1. Continue ASA. Continue with po amiodarone. Very good daily UOP. Lasix PRN 2. Follow neurology recommendations. 3. Continue with secondary prevention measures. Lipids are well controlled. 4. May follow up as outpt. Will follow along peripherally. JUANI HUNG MD 06/12/18 1557: CARDIO Progress Notes Assessment Assessment Patient seen and examined. Agree with TOBACCO WEIGHER's assessment and plan. No further episodes of VT on telemetry Continue amiodarone and follow-up with our office in 1 month RASHMI DIAZ APRN Jun 12, 2018 14:25 JUANI HUNG MD Jun 12, 2018 15:57
--- NOTE | 2018-06-12 15:00 | PDOC ---
PROGRESS NOTES Assessment Assessment Status epilepticus. Seizure. Metabolic encephalopathy. Respiratory failure. Lactic acidosis. NSTEMI likely. CHF, EF 20%. DM? Cerebral capillary telangiectasia? HTN. HLD. Hypothyroidism? Pacemaker in site. RECOMMENDATIONS/PLAN: Keppra 1000 mg IV q12h. Fosphenytoin administrated in ER. Treat cardiac diseases. MRI not obtained due to pacemaker. Discussed with his sisters at bedside on 06/11/18. EEG on 06/08/18: No epileptiform discharges. HISTORY OF THE PRESENT ILLNESS: 72-y-old patient with Hx of seizure and has been treated with Keppra. He had mental status changes, unresponsiveness and convulsions noted byt his family to be brought to the ER of [facility]. He was intubated in the ER due to unable to maintain upper airway from seizing. Phenytoin was administrated in the ER to control his convulsion. No clinic seizures since in ICU. Extubated on 06/09/18. Past Medical History Cardiovascular: HTN, Hyperlipidemia Pulmonary: No pertinent hx CENTRAL NERVOUS SYSTEM: Seizure GI: No pertinent hx Heme/Onc: No pertinent hx Hepatobiliary: No pertinent hx Psych: No pertinent hx Rheumatologic: No pertinent hx Infectious disease: No pertinent hx Renal/: No pertinent hx Endocrine: No pertinent hx Past Surgical History Appendectomy Family History Unknown Social History Smoke: No ALCOHOL: none Drugs: None ALLERGY: Reviewed. MEDICATIONS: Refer to [facility] REVIEW OF SYSTEMS: Constitutional: No malnutrition, weight loss, cachexia. Head: No recent traumatic brain or head injury. Skin: No edema, or rash. Ear: No infection. Eyes: No vision loss or color blindness. Nose: No bleeding or purulent discharges. Hearing: Hearing decrease. Neck: No injury. Cardiac: Pacemaker Placement, HTN, HLD. Pulmonary: No COPD. GI: No GI ulcer, GI bleeding. Urinary/genital: UTI. Endocrinologic: Diabetes Mellitus? Skeletomuscular: No muscular atrophy, deformity. Neurological: see HP. Psychiatric: Denies drug use/abuse. Otherwise, not [id number] review of systems. PHYSICAL EXAMINATION: General appearance is in subacute distress. HEENT: Normocephalic and nontraumatic. Eyes, nose, ears, and throat are unremarkable. Neck is supple. No lymphadenopathy.No crepitus. Cardiovascular: S1, S2, regular rate and rhythm. Pulmonary: On vent. Abdomen: Bowel sounds are positive. Extremities: No rash, lesions, or edema. No restriction of range of motion NEUROLOGICAL EXAMINATION: Drowsiness. Not oriented to time, place but knew his family members. PERRL. EOMI. CN: no acute focal findings. Muscle tone: fluctuated. Muscle strength: 4+ DTR: 1-2 Plantar reflex: Extensor response in right side. Neutral response in left side. Gait: Not examined in bed. Sensory exam: no abnormal findings. No acute cerebellar signs elicited. F-T-N test not performed due to not follow commands. Objective Objective Vital Signs Date Time Temp Pulse Resp B/P (MAP) Pulse Ox O2 Delivery O2 Flow Rate FiO2 06/12/18 12:15 91 Room Air 06/12/18 11:46 74 109/65 06/12/18 11:24 98.8 26 98.8 Intake and Output 06/12/18 07:00 Intake Total 641.5 ml Output Total 3550 ml Balance -2908.5 ml Intake Oral 100 ml IV Total 541.5 ml Output Urine Total 3550 ml Vitals Signs Vitals VS - Last 72 Hours, by Label Date Time Temp Pulse Resp B/P (MAP) Pulse Ox O2 Delivery O2 Flow Rate FiO2 06/12/18 12:15 91 Room Air 06/12/18 11:46 74 109/65 06/12/18 11:37 74 109/65 06/12/18 11:24 98.8 74 26 109/65 (80) 92 Room Air 98.8 06/12/18 07:45 Room Air 06/12/18 07:06 98.2 79 30 152/95 (114) 93 Room Air 98.2 06/12/18 02:00 97.4 77 18 148/100 (116) 95 Room Air 97.4 06/11/18 22:00 97.9 77 18 135/89 (104) 95 Room Air 97.9 06/11/18 20:32 91 Room Air 06/11/18 20:00 Room Air 06/11/18 19:35 98.4 69 18 122/77 (92) 96 Room Air 98.4 06/11/18 16:54 83 104/70 06/11/18 16:30 95 Room Air 06/11/18 15:00 98.6 76 18 146/97 (113) 95 Room Air 98.6 06/11/18 13:00 69 18 134/80 (98) 94 Room Air 06/11/18 12:00 Room Air 06/11/18 12:00 98.4 74 16 126/97 (107) 97 Room Air 98.4 06/11/18 11:48 95 Room Air 06/11/18 11:00 96 18 118/92 (101) 93 Room Air 06/11/18 10:30 91 148/102 06/11/18 10:00 91 16 148/102 (117) 92 Room Air 06/11/18 09:00 92 18 151/97 (115) 94 Room Air 06/11/18 08:17 96 Room Air 06/11/18 08:05 18 98 Room Air 06/11/18 08:00 Room Air 06/11/18 08:00 98.1 71 18 131/95 (107) 95 Room Air 98.1 06/11/18 07:07 20 98 Room Air 06/11/18 07:00 72 18 138/72 (94) 95 Room Air Laboratory Laboratory Laboratory Tests Test 06/11/18 19:30 06/12/18 06:12 06/12/18 06:15 Heparin Anti-Xa Act, Unfractionated < 0.10 IU/mL (0.30-0.70) Glucose (Fingerstick) 88 mg/dL (70-99) Sodium Level 143 mmol/L (136-145) Potassium Level 3.7 mmol/L (3.5-5.1) Chloride Level 106 mmol/L (98-107) Carbon Dioxide Level 26 mmol/L (21-32) Anion Gap 11 (6-14) Blood Urea Nitrogen 10 mg/dL (8-26) Creatinine 1.1 mg/dL (0.7-1.3) Estimated GFR (Cockcroft-Gault) 66.2 Glucose Level 89 mg/dL (70-99) Calcium Level 9.5 mg/dL (8.5-10.1) Magnesium Level 1.6 mg/dL (1.8-2.4) Microbiology 06/08/18 Blood Culture - Preliminary, Resulted NO GROWTH AFTER 4 DAYS Medication Medications Current Medications Carvedilol (Coreg) 6.25 mg BIDWMEALS PO Last administered on 06/12/18at 11:46; Start 06/11/18 at 17:00 Dextrose (Dextrose 50%-Water Syringe) 25 gm STK-MED ONCE IV ; Start 06/12/18 at 06:00; Stop 06/12/18 at 08:37; Status DC Dextrose (Dextrose 50%-Water Syringe) 25 gm STK-MED ONCE IV ; Start 06/12/18 at 06:04; Stop 06/12/18 at 06:05; Status DC Furosemide (Lasix) 40 mg PRN DAILY PRN PO SEE COMMENTS; Start 06/11/18 at 16: 15 Magnesium Sulfate 50 ml @ 25 mls/hr 1X ONCE IV Last administered on at 09:38; Start 06/12/18 at 07:30; Stop 06/12/18 at 09:29; Status DC Olanzapine (ZyPREXA) 5 mg BID PO Last administered on 06/12/18at 11:35; Start 06/11/18 at 15:30 Regadenoson (Lexiscan) 0.4 mg 1X ONCE IV Last administered on 06/12/18at 11:06 ; Start 06/12/18 at 08:00; Stop 06/12/18 at 08:01; Status DC Comment Review of Relevant I have reviewed the following items sharee (where applicable) has been applied. PITO SUMNER MD Jun 12, 2018 15:00
[2018-06-12 15:48] VITALS: BP 88/51
[2018-06-12 17:53] VITALS: BP 115/80
[2018-06-12 19:05] VITALS: BP 130/101
[2018-06-12] MEDS: FAMOTIDINE 20 MG TABLET. PO SCH ×2 (21:00→21:11)
[2018-06-12] MEDS: ATORVASTATIN CALCIUM 20 MG TABLET PO SCH ×2 (21:00→21:11)
[2018-06-13 03:19] VITALS: BP 143/84
[2018-06-13 07:00] VITALS: BP 110/61
--- NOTE | 2018-06-13 07:26 | PDOC ---
PROGRESS NOTES Chief Complaint Chief Complaint Seizure Respiratory failure, hypoxia History of Present Illness History of Present Illness Patient is a 72 year old male who presents with seizure. home care giver found him seizing 06/08/18, unresponsive and called EMS. He was dced here 4 months ago for seizure, takes keppra for now. Pt seen in ICU, extubated 06/09. EEG bedside in ICU 06/08 Overnight became less agitated, haldol, responsive to IM zyprexa 5mg. No antipsychotics for the past 18 hours No longer hallucinating today, slept well. Sister is bedside. He is able to swallow today. Is able to recall answers to questions and follow more logical progression today. No SOB, CP, N/V/D or dysuria, no further seizures. A/P: Epilepy status - initially requiring intubated, cont keppra, consulted neuro. No further seizures Acute resp failure with seizure - intubated for hypoxia with seizure, s/p extubation 06/09 AMS, with seizure - has baseline dementia, he is not back to his baseline per family, possibly ICU delerium, will add zyprexa IM 5mg BID prn for agitation JESE, vasomotor - likely from seizure, fluids Lactate acidosis - likely seizure related, was given zosyn for possible aspiration, off antibiotics now, no further fevers Elevated troponin - with h/o CHF consulted cardiology, trended down Hypotension - improved, off levophed H/o Systolic CHF - consulted cardiology Dementia - light during day. Family nearby. Zyprexa IM or oral haldol prn agitation. HTN - po meds HLD - can take po h/o epilepsy - having trouble with meds, cont keppra PPM - interrogate today Depression - related to dementia plan: CVC Care now RECEIVER STOCKER -->advance diet, sitting up dvt, gi ppx on keppra iv bid labs daily FULL CODE Wards ok Vitals Vitals Vital Signs Date Time Temp Pulse Resp B/P (MAP) Pulse Ox O2 Delivery O2 Flow Rate FiO2 06/13/18 07:00 96.4 68 17 110/61 (77) 94 Room Air 96.4 Physical Exam General: Alert, Cooperative, mild distress Heart: Regular rate, Normal S1, Normal S2 Lungs: Other (clear) Abdomen: Normal bowel sounds, Soft, No tenderness Extremities: No clubbing, No cyanosis, No edema Skin: No rashes, No significant lesion Comment Review of Relevant I have reviewed the following items sharee (where applicable) has been applied. Labs Laboratory Tests Test 06/11/18 19:30 06/12/18 06:12 06/12/18 06:15 Heparin Anti-Xa Act, Unfractionated < 0.10 IU/mL (0.30-0.70) Glucose (Fingerstick) 88 mg/dL (70-99) Sodium Level 143 mmol/L (136-145) Potassium Level 3.7 mmol/L (3.5-5.1) Chloride Level 106 mmol/L (98-107) Carbon Dioxide Level 26 mmol/L (21-32) Anion Gap 11 (6-14) Blood Urea Nitrogen 10 mg/dL (8-26) Creatinine 1.1 mg/dL (0.7-1.3) Estimated GFR (Cockcroft-Gault) 66.2 Glucose Level 89 mg/dL (70-99) Calcium Level 9.5 mg/dL (8.5-10.1) Magnesium Level 1.6 mg/dL (1.8-2.4) Microbiology 06/08/18 Blood Culture - Preliminary, Resulted NO GROWTH AFTER 4 DAYS Medications Current Medications Levetiracetam 1000 mg/Sodium Chloride 110 ml @ 440 mls/hr 1X ONCE IV Last administered on 06/08/18 09:03; Start 06/08/18 at 08:45; Stop 06/08/18 at 08 :59; Status DC Propofol (Diprivan) 200 mg 1X ONCE IV Last administered on 06/08/18at 08:52; Start 06/08/18 at 08:45; Stop 06/08/18 at 08:47; Status DC Sodium Chloride 1,000 ml @ 1,000 mls/hr 1X ONCE IV Last administered on 06/08 09:03; Start 06/08/18 at 08:45; Stop 06/08/18 at 09:44; Status DC Sodium Chloride 1,000 ml @ 1,000 mls/hr 1X ONCE IV Last administered on 06/08at 09:03; Start 06/08/18 at 08:45; Stop 06/08/18 at 09:44; Status DC Etomidate (Amidate) 20 mg 1X ONCE IV Last administered on 06/08/18at 08:37; Start 06/08/18 at 08:45; Stop 06/08/18 at 08:47; Status DC Succinylcholine Chloride (Anectine) 100 mg 1X ONCE IV Last administered on at 08:38; Start 06/08/18 at 08:45; Stop 06/08/18 at 08:47; Status DC Propofol 50 ml @ As Directed STK-MED ONCE IV ; Start 06/08/18 at 08:49; Stop 06/08/18 at 08:50; Status DC Midazolam HCl (Versed) 4 mg 1X ONCE IV Last administered on 06/08/18at 09:13; Start 06/08/18 at 09:00; Stop 06/08/18 at 09:03; Status DC Fosphenytoin Sodium 1400 mg/ Sodium Chloride 78 ml @ 312 mls/hr 1X ONCE IV Last administered on 06/08/18at 09:46; Start 06/08/18 at 09:30; Stop 06/08/18 at 09:44; Status DC Norepinephrine Bitartrate 250 ml @ As Directed STK-MED ONCE IV ; Start at 10:11; Stop 06/08/18 at 10:12; Status DC Aspirin (Aspirin) 300 mg 1X STAT TN Last administered on 06/08/18at 10:36; Start 06/08/18 at 10:14; Stop 06/08/18 at 10:17; Status DC Norepinephrine Bitartrate 250 ml @ 1.875 mls/ hr CONT PRN IV SEE I/O RECORD Last administered on 06/09/18at 04:44; Start 06/08/18 at 10:30; Stop 06/11/18 at 20:26; Status DC Piperacillin Sod/ Tazobactam Sod 3.375 gm/Sodium Chloride 50 ml @ 100 mls/hr 1X ONCE IV Last administered on 06/08/18at 11:17; Start 06/08/18 at 10:30; Stop 06/08/18 at 10:59; Status DC Levetiracetam 1000 mg/Dextrose 110 ml @ 440 mls/hr BID IV Last administered on 06/12/18at 21:11; Start 06/08/18 at 21:00 Albuterol/ Ipratropium (Duoneb) 3 ml RTQID NEB Last administered on 06/12/18at 19:55; Start 06/08/18 at 12:30 Enoxaparin Sodium (Lovenox 40mg Syringe) 40 mg Q24H SQ Last administered on at 15:28; Start 06/08/18 at 13:00; Stop 06/09/18 at 12:21; Status DC Famotidine (Pepcid) 20 mg QHS PO Last administered on 06/11/18at 21:18; Start 06/08/18 at 21:00 Propofol 100 ml @ 0 mls/hr CONT PRN IV PER PROTOCOL Last administered on at 04:44; Start 06/08/18 at 15:30; Stop 06/11/18 at 20:26; Status DC Fentanyl Citrate (Fentanyl 2ml Vial) 25 mcg PRN Q1HR PRN IV PAIN/SEDATION Last administered on 06/11/18at 07:07; Start 06/08/18 at 15:30 Aspirin (Children'S Aspirin) 81 mg DAILYWBKFT PO Last administered on at 11:35; Start 06/09/18 at 08:00 Atorvastatin Calcium (Lipitor) 20 mg HS PO Last administered on 06/11/18at 21: 18; Start 06/08/18 at 21:00 Sertraline HCl (Zoloft) 50 mg DAILY PO Last administered on 06/12/18at 11:38; Start 06/09/18 at 09:00 Sodium Chloride 1,000 ml @ 100 mls/hr Q10H IV Last administered on 06/10/18at 00:28; Start 06/08/18 at 15:30; Stop 06/10/18 at 10:44; Status DC Piperacillin Sod/ Tazobactam Sod 3.375 gm/Sodium Chloride 50 ml @ 100 mls/hr Q6HRS IV ; Start 06/08/18 at 18:00; Status UNV Piperacillin Sod/ Tazobactam Sod (Zosyn Per Pharmacy) 1 each PRN DAILY PRN MC SEE COMMENTS; Start 06/08/18 at 15:30; Stop 06/09/18 at 13:46; Status DC Piperacillin Sod/ Tazobactam Sod 2.25 gm/Sodium Chloride 50 ml @ 100 mls/hr Q6HRS IV Last administered on 06/09/18at 12:37; Start 06/08/18 at 18:00; Stop 06/09/18 at 12:44; Status DC Haloperidol Lactate (Haldol Inj) 2 mg PRN Q2HRS PRN IVP AGITATION Last administered on 06/12/18at 08:05; Start 06/09/18 at 09:45 Heparin Sodium/ Dextrose 500 ml @ 0 mls/hr CONT PRN IV SEE I/O RECORD Last administered on 06/10/18at 16:49; Start 06/09/18 at 15:00; Stop 06/11/18 at 14 :20; Status DC Heparin Sodium (Porcine) (Heparin Sodium) 1,800 unit PRN Q6HRS PRN IV FOR UFH LEVEL LESS THAN 0.2 Last administered on 06/09/18at 15:07; Start 06/09/18 at 12 :15; Stop 06/11/18 at 14:20; Status DC Info (Anti-Coagulation Monitoring By Pharmacy) 1 each PRN DAILY PRN MC SEE COMMENTS Last administered on 06/11/18at 10:47; Start 06/09/18 at 12:30; Stop 06/12/18 at 09:39; Status DC Piperacillin Sod/ Tazobactam Sod 3.375 gm/Sodium Chloride 50 ml @ 100 mls/hr Q6HRS IV ; Start 06/09/18 at 18:00; Stop 06/09/18 at 18:00; Status DC Influenza Virus Vaccine (Afluria Trivalent [id number] Syringe) 0.5 ml ONCE ONCE VAX IM Last administered on 06/11/18at 16:57; Start 06/09/18 at 18:00; Stop 06/09/18 at 18:01; Status DC Dexmedetomidine HCl 200 mcg/ Sodium Chloride 50 ml @ 0 mls/hr CONT PRN IV PER PROTOCOL Last administered on 06/10/18at 09:01; Start 06/09/18 at 19:00; Stop 06/11/18 at 20:26; Status DC Sodium Chloride 500 ml @ 500 mls/hr 1X PRN PRN IV SEE COMMENTS; Start at 19:00 Atropine Sulfate (ATROPINE 0.5mg SYRINGE) 0.5 mg PRN Q5MIN PRN IV SEE COMMENTS ; Start 06/09/18 at 19:00 Vancomycin HCl (Vanco Per Pharmacy) 1 each PRN DAILY PRN MC SEE COMMENTS; Start 06/09/18 at 21:30; Status Cancel Piperacillin Sod/ Tazobactam Sod (Zosyn Per Pharmacy) 1 each PRN DAILY PRN MC SEE COMMENTS; Start 06/09/18 at 21:30; Status Cancel Piperacillin Sod/ Tazobactam Sod 3.375 gm/Sodium Chloride 50 ml @ 100 mls/hr Q6HRS IV ; Start 06/10/18 at 00:00; Status Cancel Vancomycin HCl 1.75 gm/Sodium Chloride 500 ml @ 250 mls/hr 1X ONCE IV Last administered on 06/09/18at 21:33; Start 06/09/18 at 22:00; Stop 06/09/18 at 22 :32; Status DC Olanzapine (ZyPREXA IM) 5 mg PRN BID PRN IM agitation Last administered on at 09:15; Start 06/10/18 at 10:15 Amino Acids/ Glycerin/ Electrolytes 1,000 ml @ 80 mls/hr [id number] IV Last administered on 06/11/18at 11:49; Start 06/10/18 at 10:15; Stop 06/11/18 at 16 :27; Status DC Amiodarone HCl 150 mg/Dextrose 103 ml @ 600 mls/hr 1X ONCE IV Last administered on 06/10/18at 16:15; Start 06/10/18 at 15:45; Stop 06/10/18 at 15 :55; Status DC Amiodarone HCl 900 mg/Dextrose 518 ml @ 33.33 mls/ hr CONT PRN IV SEE I/O RECORD Last administered on 06/10/18at 16:22; Start 06/10/18 at 15:15; Stop at 21:14; Status DC Amiodarone HCl 900 mg/Dextrose 518 ml @ 16.67 mls/ hr CONT PRN IV SEE I/O RECORD; Start 06/10/18 at 15:30; Stop 06/11/18 at 09:29; Status DC Amiodarone HCl (Cordarone) 200 mg DAILY PO Last administered on 06/12/18at 11: 37; Start 06/11/18 at 09:00 Olanzapine (ZyPREXA) 5 mg BID PO Last administered on 06/12/18at 11:35; Start 06/11/18 at 15:30 Furosemide (Lasix) 40 mg PRN DAILY PRN PO SEE COMMENTS; Start 06/11/18 at 16: 15 Carvedilol (Coreg) 6.25 mg BIDWMEALS PO Last administered on 06/12/18at 17:51; Start 06/11/18 at 17:00 Dextrose (Dextrose 50%-Water Syringe) 25 gm STK-MED ONCE IV ; Start 06/12/18 at 06:04; Stop 06/12/18 at 06:05; Status DC Magnesium Sulfate 50 ml @ 25 mls/hr 1X ONCE IV Last administered on at 09:38; Start 06/12/18 at 07:30; Stop 06/12/18 at 09:29; Status DC Regadenoson (Lexiscan) 0.4 mg 1X ONCE IV Last administered on 06/12/18at 11:06 ; Start 06/12/18 at 08:00; Stop 06/12/18 at 08:01; Status DC Dextrose (Dextrose 50%-Water Syringe) 25 gm STK-MED ONCE IV ; Start 06/12/18 at 06:00; Stop 06/12/18 at 08:37; Status DC Active Scripts Active Reported Super B Complex (Vitamin B Complex & Vit C No.4) 150 Mg Tablet 150 Mg PO DAILY Lisinopril 10 Mg Tablet 1 Tab PO DAILY Aricept (Donepezil Hcl) 10 Mg Tablet 10 Mg PO HS Zoloft (Sertraline Hcl) 25 Mg Tablet 50 Mg PO DAILY Atorvastatin Calcium 20 Mg Tablet 20 Mg PO HS Spironolactone 25 Mg Tablet 25 Mg PO DAILY Multivitamins (Multivitamin) 1 Each Tablet 1 Tab PO DAILY Levetiracetam 500 Mg Tablet 2,000 Mg PO BID Carvedilol 6.25 Mg Tablet 6.25 Mg PO BID Aspir 81 (Aspirin) 81 Mg Tablet.dr 81 Mg PO DAILY Vitals/I & O Vital Sign - Last 24 Hours 06/12/18 06/12/18 06/12/18 06/12/18 07:45 11:24 11:37 11:46 Temp 98.8 98.8 Pulse 74 74 74 Resp 26 B/P (MAP) 109/65 (80) 109/65 109/65 Pulse Ox 92 O2 Delivery Room Air Room Air 10/06/12/18 06/12/18 06/12/18 12:15 15:48 17:51 17:53 Temp 98.9 98.9 Pulse 85 85 76 Resp 24 B/P (MAP) 88/51 (63) 109/52 115/80 (92) Pulse Ox 91 96 O2 Delivery Room Air Room Air 06/12/18 06/12/18 06/12/18 06/12/18 19:05 19:56 20:00 23:00 Temp 97.6 97.6 Pulse 72 68 Resp 19 B/P (MAP) 130/101 (111) Pulse Ox 94 91 O2 Delivery Room Air Room Air Room Air 06/13/18 06/13/18 03:19 07:00 Temp 97.8 96.4 97.8 96.4 Pulse 68 68 Resp 18 17 B/P (MAP) 143/84 (103) 110/61 (77) Pulse Ox 95 94 O2 Delivery Room Air Room Air Intake and Output 06/12/18 06/12/18 06/13/18 15:00 23:00 07:00 Intake Total 180 ml 0 ml Output Total 825 ml 300 ml 600 ml Balance -645 ml -300 ml -600 ml LESLIE NEVAREZ MD Jun 13, 2018 07:26
[2018-06-13] MEDS: IPRATRPIUM/ALBUTEROL 0.5/2.5MG 3 ML NEBU. NEB SCH ×4 (07:47→19:31)
[2018-06-13] MEDS: SERTRALINE 50 MG TABLET. PO SCH (08:02)
[2018-06-13] MEDS: ASPIRIN CHEWABLE 81 MG TABLET. PO SCH (08:02)
[2018-06-13] MEDS: AMIODARONE HCL 200 MG TABLET. PO SCH (08:02)
[2018-06-13] MEDS: CARVEDILOL 6.25 MG TABLET. PO SCH ×2 (08:02→17:33)
[2018-06-13] MEDS: OLANZapine 5 MG TABLET PO SCH ×2 (08:03→20:23)
[2018-06-13] MEDS: levETIRAcetam 1,000 MG in IV DEXTROSE 5% 100ML 100 ML IV SCH ×2 (08:03→20:42)
[2018-06-13 11:25] VITALS: BP 156/100
--- NOTE | 2018-06-13 11:26 | PDOC ---
PULMONARY PROGRESS NOTES Subjective extubated 06/09 comfortable/ Vitals Vital Signs Date Time Temp Pulse Resp B/P (MAP) Pulse Ox O2 Delivery O2 Flow Rate FiO2 06/13/18 09:04 Room Air 06/13/18 08:02 68 110/61 06/13/18 07:49 93 06/13/18 07:00 96.4 17 96.4 General: No acute distress Lungs: Other (clear) Cardiovascular: S1 Abdomen: Soft Extremities: No Edema Skin: Warm Labs Laboratory Tests Test 06/11/18 19:30 06/12/18 06:12 06/12/18 06:15 Heparin Anti-Xa Act, Unfractionated < 0.10 IU/mL (0.30-0.70) Glucose (Fingerstick) 88 mg/dL (70-99) Sodium Level 143 mmol/L (136-145) Potassium Level 3.7 mmol/L (3.5-5.1) Chloride Level 106 mmol/L (98-107) Carbon Dioxide Level 26 mmol/L (21-32) Anion Gap 11 (6-14) Blood Urea Nitrogen 10 mg/dL (8-26) Creatinine 1.1 mg/dL (0.7-1.3) Estimated GFR (Cockcroft-Gault) 66.2 Glucose Level 89 mg/dL (70-99) Calcium Level 9.5 mg/dL (8.5-10.1) Magnesium Level 1.6 mg/dL (1.8-2.4) Medications Active Scripts Medications Dose Route/Sig Max Daily Dose Days Date Category Super B Complex (Vitamin B Complex & Vit C No.4) 150 Mg Tablet 150 Mg PO DAILY 06/08/18 Reported Lisinopril 10 Mg Tablet 1 Tab PO DAILY 06/08/18 Reported Aricept (Donepezil Hcl) 10 Mg Tablet 10 Mg PO HS 01/23/18 Reported Zoloft (Sertraline Hcl) 25 Mg Tablet 50 Mg PO DAILY 01/23/18 Reported Atorvastatin Calcium 20 Mg Tablet 20 Mg PO HS 01/23/18 Reported Spironolactone 25 Mg Tablet 25 Mg PO DAILY 01/23/18 Reported Multivitamins (Multivitamin) 1 Each Tablet 1 Tab PO DAILY 08/28/14 Reported Levetiracetam 500 Mg Tablet 2,000 Mg PO BID 11/15/13 Reported Carvedilol 6.25 Mg Tablet 6.25 Mg PO BID 11/15/13 Reported Aspir 81 (Aspirin) 81 Mg Tablet.dr 81 Mg PO DAILY 11/15/13 Reported Impression . 1. Acute respiratory failure secondary to acute encephalopathy and seizure disorder. extubated 06/09 2. seizure disorder, 3. History of severe cardiomyopathy with an ejection fraction of 15%. Chest x-ray not in congestive heart failure. EF NOW 25% 4. Fever, RESOLVED .Clinically less likely pneumonia. 5. Increase troponin/ NSTMI 6. Dementia/ encephalopathy. started on Psych meds Plan . 1. nasal canula 2. Follow Neurology recommendations. 3. Nutrition per speech 4. Lactic acidosis related to seizures , resolved 5. Bronchodilators. 6. DVT prophylaxis. 7. Stress ulcer prophylaxis. 8. Anti-seizure medications per Neurology. 9. Resolved fever. Empiric Abx for now 10.Cardiology rec 11. Discussed with RN will see ANANT Haynes MD Jun 13, 2018 11:26
[2018-06-13 15:30] VITALS: BP 110/63
[2018-06-13 19:00] VITALS: BP 125/77
[2018-06-13] MEDS: FAMOTIDINE 20 MG TABLET. PO SCH (20:24)
[2018-06-13] MEDS: ATORVASTATIN CALCIUM 20 MG TABLET PO SCH (20:24)
[2018-06-13 23:01] VITALS: BP 132/92
[2018-06-14 03:05] VITALS: BP 138/103
--- NOTE | 2018-06-14 07:10 | PDOC ---
PROGRESS NOTES Chief Complaint Chief Complaint Seizure Respiratory failure, hypoxia History of Present Illness History of Present Illness Patient is a 72 year old male who presents with seizure. grocery store bagger found him seizing 06/08/18, unresponsive and called EMS. He was dced here 4 months ago for seizure, takes keppra for now. Pt seen in ICU, extubated 06/09. EEG bedside in ICU 06/08 Overnight became less agitated, haldol, responsive to IM zyprexa 5mg. No antipsychotics for the past 36 hours No longer hallucinating today, slept well. He showered this morning. Is able to recall answers to questions and follow more logical progression today. No SOB, CP, N/V/D or dysuria, no further seizures. Tamayo out. Ok to leave soon. A/P: Epilepy status - initially requiring intubated, cont keppra, consulted neuro. No further seizures Acute resp failure with seizure - intubated for hypoxia with seizure, s/p extubation 06/09 AMS, with seizure - has baseline dementia, he is not back to his baseline per family, possibly ICU delerium, will add zyprexa IM 5mg BID prn for agitation JSEE, vasomotor - likely from seizure, fluids Lactate acidosis - likely seizure related, was given zosyn for possible aspiration, off antibiotics now, no further fevers Elevated troponin - with h/o CHF consulted cardiology, trended down Hypotension - improved, off levophed H/o Systolic CHF - consulted cardiology, now on amio, coreg, asa Dementia - light during day. Family nearby. Zyprexa IM or oral haldol prn agitation. HTN - po meds HLD - can take po h/o epilepsy - having trouble with meds, cont keppra PPM - interrogated Depression - related to dementia plan: CVC Care now [employer] -->advance diet, sitting up dvt, gi ppx on keppra 1000mg bid labs daily FULL CODE Wards ok Vitals Vitals Vital Signs Date Time Temp Pulse Resp B/P (MAP) Pulse Ox O2 Delivery O2 Flow Rate FiO2 06/14/18 03:05 97.6 77 18 138/103 (115) 95 Room Air 97.6 Physical Exam General: Alert, Cooperative, mild distress Heart: Regular rate, Normal S1, Normal S2 Lungs: Other (clear) Abdomen: Normal bowel sounds, Soft, No tenderness Extremities: No clubbing, No cyanosis, No edema Skin: No rashes, No significant lesion Comment Review of Relevant I have reviewed the following items sharee (where applicable) has been applied. Labs Microbiology 06/08/18 Blood Culture - Final, Complete NO GROWTH AFTER 5 DAYS Medications Current Medications Levetiracetam 1000 mg/Sodium Chloride 110 ml @ 440 mls/hr 1X ONCE IV Last administered on 06/08/18at 09:03; Start 06/08/18 at 08:45; Stop 06/08/18 at 08 :59; Status DC Propofol (Diprivan) 200 mg 1X ONCE IV Last administered on 06/08/18at 08:52; Start 06/08/18 at 08:45; Stop 06/08/18 at 08:47; Status DC Sodium Chloride 1,000 ml @ 1,000 mls/hr 1X ONCE IV Last administered on 06/08at 09:03; Start 06/08/18 at 08:45; Stop 06/08/18 at 09:44; Status DC Sodium Chloride 1,000 ml @ 1,000 mls/hr 1X ONCE IV Last administered on 06/08at 09:03; Start 06/08/18 at 08:45; Stop 06/08/18 at 09:44; Status DC Etomidate (Amidate) 20 mg 1X ONCE IV Last administered on 06/08/18at 08:37; Start 06/08/18 at 08:45; Stop 06/08/18 at 08:47; Status DC Succinylcholine Chloride (Anectine) 100 mg 1X ONCE IV Last administered on at 08:38; Start 06/08/18 at 08:45; Stop 06/08/18 at 08:47; Status DC Propofol 50 ml @ As Directed STK-MED ONCE IV ; Start 06/08/18 at 08:49; Stop 06/08/18 at 08:50; Status DC Midazolam HCl (Versed) 4 mg 1X ONCE IV Last administered on 06/08/18at 09:13; Start 06/08/18 at 09:00; Stop 06/08/18 at 09:03; Status DC Fosphenytoin Sodium 1400 mg/ Sodium Chloride 78 ml @ 312 mls/hr 1X ONCE IV Last administered on 06/08/18at 09:46; Start 06/08/18 at 09:30; Stop 06/08/18 at 09:44; Status DC Norepinephrine Bitartrate 250 ml @ As Directed STK-MED ONCE IV ; Start at 10:11; Stop 06/08/18 at 10:12; Status DC Aspirin (Aspirin) 300 mg 1X STAT TX Last administered on 06/08/18at 10:36; Start 06/08/18 at 10:14; Stop 06/08/18 at 10:17; Status DC Norepinephrine Bitartrate 250 ml @ 1.875 mls/ hr CONT PRN IV SEE I/O RECORD Last administered on 06/09/18at 04:44; Start 06/08/18 at 10:30; Stop 06/11/18 at 20:26; Status DC Piperacillin Sod/ Tazobactam Sod 3.375 gm/Sodium Chloride 50 ml @ 100 mls/hr 1X ONCE IV Last administered on 06/08/18at 11:17; Start 06/08/18 at 10:30; Stop 06/08/18 at 10:59; Status DC Levetiracetam 1000 mg/Dextrose 110 ml @ 440 mls/hr BID IV Last administered on 06/13/18at 20:42; Start 06/08/18 at 21:00 Albuterol/ Ipratropium (Duoneb) 3 ml RTQID NEB Last administered on 06/13/18at 19:31; Start 06/08/18 at 12:30 Enoxaparin Sodium (Lovenox 40mg Syringe) 40 mg Q24H SQ Last administered on at 15:28; Start 06/08/18 at 13:00; Stop 06/09/18 at 12:21; Status DC Famotidine (Pepcid) 20 mg QHS PO Last administered on 06/13/18at 20:24; Start 06/08/18 at 21:00 Propofol 100 ml @ 0 mls/hr CONT PRN IV PER PROTOCOL Last administered on at 04:44; Start 06/08/18 at 15:30; Stop 06/11/18 at 20:26; Status DC Fentanyl Citrate (Fentanyl 2ml Vial) 25 mcg PRN Q1HR PRN IV PAIN/SEDATION Last administered on 06/11/18at 07:07; Start 06/08/18 at 15:30 Aspirin (Children'S Aspirin) 81 mg DAILYWBKFT PO Last administered on at 08:02; Start 06/09/18 at 08:00 Atorvastatin Calcium (Lipitor) 20 mg HS PO Last administered on 06/13/18at 20: 24; Start 06/08/18 at 21:00 Sertraline HCl (Zoloft) 50 mg DAILY PO Last administered on 06/13/18at 08:02; Start 06/09/18 at 09:00 Sodium Chloride 1,000 ml @ 100 mls/hr Q10H IV Last administered on 06/10/18at 00:28; Start 06/08/18 at 15:30; Stop 06/10/18 at 10:44; Status DC Piperacillin Sod/ Tazobactam Sod 3.375 gm/Sodium Chloride 50 ml @ 100 mls/hr Q6HRS IV ; Start 06/08/18 at 18:00; Status UNV Piperacillin Sod/ Tazobactam Sod (Zosyn Per Pharmacy) 1 each PRN DAILY PRN MC SEE COMMENTS; Start 06/08/18 at 15:30; Stop 06/09/18 at 13:46; Status DC Piperacillin Sod/ Tazobactam Sod 2.25 gm/Sodium Chloride 50 ml @ 100 mls/hr Q6HRS IV Last administered on 06/09/18at 12:37; Start 06/08/18 at 18:00; Stop 06/09/18 at 12:44; Status DC Haloperidol Lactate (Haldol Inj) 2 mg PRN Q2HRS PRN IVP AGITATION Last administered on 06/12/18at 08:05; Start 06/09/18 at 09:45 Heparin Sodium/ Dextrose 500 ml @ 0 mls/hr CONT PRN IV SEE I/O RECORD Last administered on 06/10/18at 16:49; Start 06/09/18 at 15:00; Stop 06/11/18 at 14 :20; Status DC Heparin Sodium (Porcine) (Heparin Sodium) 1,800 unit PRN Q6HRS PRN IV FOR UFH LEVEL LESS THAN 0.2 Last administered on 06/09/18at 15:07; Start 06/09/18 at 12 :15; Stop 06/11/18 at 14:20; Status DC Info (Anti-Coagulation Monitoring By Pharmacy) 1 each PRN DAILY PRN MC SEE COMMENTS Last administered on 06/11/18at 10:47; Start 06/09/18 at 12:30; Stop 06/12/18 at 09:39; Status DC Piperacillin Sod/ Tazobactam Sod 3.375 gm/Sodium Chloride 50 ml @ 100 mls/hr Q6HRS IV ; Start 06/09/18 at 18:00; Stop 06/09/18 at 18:00; Status DC Influenza Virus Vaccine (Afluria Trivalent [id number] Syringe) 0.5 ml ONCE ONCE VAX IM Last administered on 06/11/18at 16:57; Start 06/09/18 at 18:00; Stop 06/09/18 at 18:01; Status DC Dexmedetomidine HCl 200 mcg/ Sodium Chloride 50 ml @ 0 mls/hr CONT PRN IV PER PROTOCOL Last administered on 06/10/18at 09:01; Start 06/09/18 at 19:00; Stop 06/11/18 at 20:26; Status DC Sodium Chloride 500 ml @ 500 mls/hr 1X PRN PRN IV SEE COMMENTS; Start at 19:00 Atropine Sulfate (ATROPINE 0.5mg SYRINGE) 0.5 mg PRN Q5MIN PRN IV SEE COMMENTS ; Start 06/09/18 at 19:00 Vancomycin HCl (Vanco Per Pharmacy) 1 each PRN DAILY PRN MC SEE COMMENTS; Start 06/09/18 at 21:30; Status Cancel Piperacillin Sod/ Tazobactam Sod (Zosyn Per Pharmacy) 1 each PRN DAILY PRN MC SEE COMMENTS; Start 06/09/18 at 21:30; Status Cancel Piperacillin Sod/ Tazobactam Sod 3.375 gm/Sodium Chloride 50 ml @ 100 mls/hr Q6HRS IV ; Start 06/10/18 at 00:00; Status Cancel Vancomycin HCl 1.75 gm/Sodium Chloride 500 ml @ 250 mls/hr 1X ONCE IV Last administered on 06/09/18at 21:33; Start 06/09/18 at 22:00; Stop 06/09/18 at 22 :32; Status DC Olanzapine (ZyPREXA IM) 5 mg PRN BID PRN IM agitation Last administered on at 09:15; Start 06/10/18 at 10:15 Amino Acids/ Glycerin/ Electrolytes 1,000 ml @ 80 mls/hr [id number] IV Last administered on 06/11/18at 11:49; Start 06/10/18 at 10:15; Stop 06/11/18 at 16 :27; Status DC Amiodarone HCl 150 mg/Dextrose 103 ml @ 600 mls/hr 1X ONCE IV Last administered on 06/10/18at 16:15; Start 06/10/18 at 15:45; Stop 06/10/18 at 15 :55; Status DC Amiodarone HCl 900 mg/Dextrose 518 ml @ 33.33 mls/ hr CONT PRN IV SEE I/O RECORD Last administered on 06/10/18at 16:22; Start 06/10/18 at 15:15; Stop at 21:14; Status DC Amiodarone HCl 900 mg/Dextrose 518 ml @ 16.67 mls/ hr CONT PRN IV SEE I/O RECORD; Start 06/10/18 at 15:30; Stop 06/11/18 at 09:29; Status DC Amiodarone HCl (Cordarone) 200 mg DAILY PO Last administered on 06/13/18at 08: 02; Start 06/11/18 at 09:00 Olanzapine (ZyPREXA) 5 mg BID PO Last administered on 06/12/18at 11:35; Start 06/11/18 at 15:30 Furosemide (Lasix) 40 mg PRN DAILY PRN PO SEE COMMENTS; Start 06/11/18 at 16: 15 Carvedilol (Coreg) 6.25 mg BIDWMEALS PO Last administered on 06/13/18at 17:33; Start 06/11/18 at 17:00 Dextrose (Dextrose 50%-Water Syringe) 25 gm STK-MED ONCE IV ; Start 06/12/18 at 06:04; Stop 06/12/18 at 06:05; Status DC Magnesium Sulfate 50 ml @ 25 mls/hr 1X ONCE IV Last administered on at 09:38; Start 06/12/18 at 07:30; Stop 06/12/18 at 09:29; Status DC Regadenoson (Lexiscan) 0.4 mg 1X ONCE IV Last administered on 06/12/18at 11:06 ; Start 06/12/18 at 08:00; Stop 06/12/18 at 08:01; Status DC Dextrose (Dextrose 50%-Water Syringe) 25 gm STK-MED ONCE IV ; Start 06/12/18 at 06:00; Stop 06/12/18 at 08:37; Status DC Active Scripts Active Reported Super B Complex (Vitamin B Complex & Vit C No.4) 150 Mg Tablet 150 Mg PO DAILY Lisinopril 10 Mg Tablet 1 Tab PO DAILY Aricept (Donepezil Hcl) 10 Mg Tablet 10 Mg PO HS Zoloft (Sertraline Hcl) 25 Mg Tablet 50 Mg PO DAILY Atorvastatin Calcium 20 Mg Tablet 20 Mg PO HS Spironolactone 25 Mg Tablet 25 Mg PO DAILY Multivitamins (Multivitamin) 1 Each Tablet 1 Tab PO DAILY Levetiracetam 500 Mg Tablet 2,000 Mg PO BID Carvedilol 6.25 Mg Tablet 6.25 Mg PO BID Aspir 81 (Aspirin) 81 Mg Tablet.dr 81 Mg PO DAILY Vitals/I & O Vital Sign - Last 24 Hours 06/13/18 06/13/18 06/13/18 06/13/18 07:49 08:00 08:02 08:02 Pulse 68 68 B/P (MAP) 110/61 110/61 Pulse Ox 93 O2 Delivery Room Air Room Air 06/13/18 06/13/18 06/13/18 06/13/18 09:04 11:25 12:03 15:30 Temp 97.8 97.8 97.8 97.8 Pulse 66 72 Resp 18 16 B/P (MAP) 156/100 (118) 110/63 (79) Pulse Ox 98 98 96 O2 Delivery Room Air Room Air Room Air Room Air 06/13/18 06/13/18 06/13/18 06/13/18 16:02 17:33 19:00 19:30 Temp 97.9 97.9 Pulse 72 71 Resp 18 B/P (MAP) 110/63 125/77 (93) Pulse Ox 97 96 O2 Delivery Room Air Room Air Room Air 06/13/18 06/13/18 06/14/18 19:31 23:01 03:05 Temp 97.8 97.6 97.8 97.6 Pulse 69 77 Resp 18 B/P (MAP) 132/92 (105) 138/103 (115) Pulse Ox 98 97 95 O2 Delivery Room Air Room Air Room Air Intake and Output 06/13/18 06/13/18 06/14/18 15:00 23:00 07:00 Intake Total 120 ml 400 ml Output Total 200 ml 350 ml Balance -80 ml 50 ml LESLIE NEVAREZ MD Jun 14, 2018 07:09
[2018-06-14 07:31] VITALS: BP 151/86
[2018-06-14] MEDS: IPRATRPIUM/ALBUTEROL 0.5/2.5MG 3 ML NEBU. NEB SCH ×2 (08:49→12:13)
[2018-06-14] MEDS: AMIODARONE HCL 200 MG TABLET. PO SCH (08:53)
[2018-06-14] MEDS: ASPIRIN CHEWABLE 81 MG TABLET. PO SCH (08:53)
[2018-06-14] MEDS: SERTRALINE 50 MG TABLET. PO SCH (08:53)
[2018-06-14] MEDS: OLANZapine 5 MG TABLET PO SCH (08:53)
[2018-06-14] MEDS: CARVEDILOL 6.25 MG TABLET. PO SCH (08:53)
[2018-06-14] MEDS: levETIRAcetam 1,000 MG in IV DEXTROSE 5% 100ML 100 ML IV SCH (08:54)
[2018-06-14 10:16] VITALS: BP 135/79
[2018-06-14] MEDS ORDERED: FURO40TA4 PO (11:19)
[2018-06-14] MEDS ORDERED: AMIO200T4 PO (11:19)
[2018-06-14] MEDS ORDERED: LEVE10007 PO (11:19)
--- NOTE | 2018-06-14 11:23 | DISCH ---
DISCHARGE WITH HOME HEALTH DISCHARGE INFORMATION: Discharge Date: Jun 14, 2018 Final Diagnosis: Seizure Condition on Discharge: Stable CODE STATUS: Code Status: Full HOME HEALTH: Face to Face: I certify this patient is under my care and that I, or a nurse practitioner or physician's certified registered dental assistant working with me, had a face to face encounter that meets the physician face to face encounter requirements with this patient on 06/14/18. Medical Complications: CHF, Dementia, Other (Seizure) Fci For: Assess & Educate Safety, Medication Management Physical Therapy For: Evalulation/Treatment Occupational Therapy For: Evaluation/Treatment Home Health Aide For: Self-care Pt Meets Homebound Status: Extreme weakness w/ amb., Limited distance walking, Poor cognition POST DISCHARGE ORDERS: Activity Instructions for Disc: Activity as tolerated Weight Bearing Status after Di: As tolerated DIET AFTER DISCHARGE: Cardiac Wound/Incision Care: Ice to area for comfort CHECKS AFTER DISCHARGE: Checks after discharge: Check blood press - daily, Check blood sugar, ac/hs, Check your Temp as needed, Weigh Yourself Daily FOLLOW-UP: Follow up with: Dr. Sue - Cardiology Follow Up With: Dr. Garcia - Neurology TREATMENT/EQUIPMENT ORDERS: Adaptive Equipment Issued: None CERTIFICATION STATEMENT: Certification Statement: Certification Statement: Based on the above finding, I certify that this patient is confined to the home and needs intermittent custodial care, physical therapy and/or speech therapy, or continues to need occupational therapy.~ This patient is under my care, and I have initiated the establishment of the plan of care.~ This patient will be followed by myself or a community physician who will periodically review the plan of care. Home Meds Active Scripts Furosemide (FUROSEMIDE) 40 Mg Tablet, 40 MG PO PRN DAILY PRN for SEE COMMENTS for 30 Days, #30 TAB Prov:LESLIE NEVAREZ MD 06/14/18 Amiodarone Hcl (AMIODARONE HCL) 200 Mg Tablet, 200 MG PO DAILY for 30 Days, #30 TAB Prov:LESLIE NEVAREZ MD 06/14/18 Levetiracetam (LEVETIRACETAM) 1,000 Mg Tablet, 1000 MG PO BID for 30 Days, #60 TAB 2 Refills Prov:LESLIE NEVAREZ MD 06/14/18 Reported Medications Vitamin B Complex & Vit C No.4 (SUPER B COMPLEX) 150 Mg Tablet, 150 MG PO DAILY , TAB 06/08/18 Lisinopril (LISINOPRIL) 10 Mg Tablet, 1 TAB PO DAILY, #30 TAB 5 Refills 06/08/18 Sertraline Hcl (ZOLOFT) 25 Mg Tablet, 50 MG PO DAILY for ANTI-DEPRESSANT, TAB 0 Refills 01/23/18 Atorvastatin Calcium (ATORVASTATIN CALCIUM) 20 Mg Tablet, 20 MG PO HS for FOR CHOLESTEROL, #30 TAB 0 Refills 01/23/18 Spironolactone (SPIRONOLACTONE) 25 Mg Tablet, 25 MG PO DAILY, TAB 01/23/18 Multivitamin (MULTIVITAMINS) 1 Each Tablet, 1 TAB PO DAILY, #90 TAB 3 Refills 08/28/14 Carvedilol (CARVEDILOL) 6.25 Mg Tablet, 6.25 MG PO BID for HYPERTENSION, SEE COMMENTS 11/15/13 Aspirin (ASPIR 81) 81 Mg Tablet.dr, 81 MG PO DAILY for SEE COMMENTS, TAB 11/15/13 Discontinued Reported Medications Donepezil Hcl (ARICEPT) 10 Mg Tablet, 10 MG PO HS, TAB 01/23/18 Levetiracetam (LEVETIRACETAM) 500 Mg Tablet, 2000 MG PO BID for SEIZURES 11/15/13 Lisinopril (LISINOPRIL) 20 Mg Tablet, 10 MG PO DAILY for HYPERTENSION, SEE COMMENTS 01/12/14 LESLIE NEVAREZ MD Jun 14, 2018 11:23
--- NOTE | 2018-06-14 11:32 | PDOC3 ---
Discharge Summary Visit Information Date of Admission: Jun 08, 2018 Date of Discharge: Jun 14, 2018 Admitting Diagnosis: Status epilepticus Brief Hospital Course Allergies Allergies Coded Allergies Type Severity Reaction Last Updated Verified No Known Drug Allergies 08/28/14 No Vital Signs Vital Signs Date Time Temp Pulse Resp B/P (MAP) Pulse Ox O2 Delivery O2 Flow Rate FiO2 06/14/18 10:16 98.0 75 18 135/79 (97) 96 Room Air 98.0 Brief Hospital Course Patient is a 72 year old male who presents with seizure. 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 He was dced here 4 months ago for seizure, takes keppra for now. Pt seen in ICU, extubated 06/09. EEG bedside in ICU 06/08 Overnight became less agitated, haldol, responsive to IM zyprexa 5mg. No antipsychotics for the past 36 hours No longer hallucinating today, slept well. He showered this morning. Is able to recall answers to questions and follow more logical progression today. No SOB, CP, N/V/D or dysuria, no further seizures. Tamayo out. Ok to leave soon. A/P: Epilepy status - initially requiring intubated, cont keppra, consulted neuro. No further seizures Acute resp failure with seizure - intubated for hypoxia with seizure, s/p extubation 06/09 AMS, with seizure - has baseline dementia, he is not back to his baseline per family, possibly ICU delerium, will add zyprexa IM 5mg BID prn for agitation JESE, vasomotor - likely from seizure, fluids Lactate acidosis - likely seizure related, was given zosyn for possible aspiration, off antibiotics now, no further fevers Elevated troponin - with h/o CHF consulted cardiology, trended down Hypotension - improved, off levophed H/o Systolic CHF - consulted cardiology, now on amio, coreg, asa Dementia - light during day. Family nearby. Zyprexa IM or oral haldol prn agitation. HTN - po meds HLD - can take po h/o epilepsy - having trouble with meds, cont keppra PPM - interrogated Depression - related to dementia [employer] -->advance diet, sitting up on keppra 1000mg bid FULL CODE D/C ok today with home health Discharge Information Condition at Discharge: Improved Follow Up: Weeks (2) Disposition/Orders: D/C to Home w/ HH Scheduled Amiodarone Hcl (Amiodarone Hcl) 200 Mg Tablet, 200 MG PO DAILY for 30 Days, #30 Prescribed by: LESLIE NEVAREZ MD on 06/14/18 1119 Aspirin (Aspir 81) 81 Mg Tablet.dr, 81 MG PO DAILY for SEE COMMENTS, (Reported) Entered as Reported by: Leti Chapman on 11/15/13852 Last Action: Continued on 06/08/181527 by MARCIA MCCLURE MD Atorvastatin Calcium (Atorvastatin Calcium) 20 Mg Tablet, 20 MG PO HS for FOR CHOLESTEROL, #30 Ref 0 (Reported) Entered as Reported by: DILLON LOPEZ on 01/23/181950 Last Action: Continued on 06/08/181527 by MARCIA MCCLURE MD Carvedilol (Carvedilol) 6.25 Mg Tablet, 6.25 MG PO BID for HYPERTENSION, SEE COMMENTS, (Reported) Entered as Reported by: Leti Chapman on 11/15/13852 Last Action: HELD on 06/08/181527 by MARCIA MCCLURE MD Levetiracetam (Levetiracetam) 1,000 Mg Tablet, 1,000 MG PO BID for 30 Days, #60 Ref 2 Prescribed by: LESLIE NEVAREZ MD on 06/14/18 1119 Lisinopril (Lisinopril) 10 Mg Tablet, 1 TAB PO DAILY, #30 Ref 5 (Reported) Entered as Reported by: TRAE CASE on 06/08/18 1021 Last Action: HELD on 06/08/181527 by MARCIA MCCLURE MD Multivitamin (Multivitamins) 1 Each Tablet, 1 TAB PO DAILY, #90 Ref 3 (Reported) Entered as Reported by: TRAE CASE on 08/28/14 0809 Last Action: HELD on 06/08/181527 by MARCIA MCCLURE MD Sertraline Hcl (Zoloft) 25 Mg Tablet, 50 MG PO DAILY for ANTI-DEPRESSANT, Ref 0 (Reported) Entered as Reported by: DILLON LOPEZ on 01/23/181950 Last Action: Converted on 06/08/181527 by MARCIA MCCLURE MD Spironolactone (Spironolactone) 25 Mg Tablet, 25 MG PO DAILY, (Reported) Entered as Reported by: DILLON LOPEZ on 01/23/181950 Last Action: HELD on 06/08/181527 by MARCIA MCCLURE MD Vitamin B Complex & Vit C No.4 (Super B Complex) 150 Mg Tablet, 150 MG PO DAILY, (Reported) Entered as Reported by: TRAE CASE on 06/08/18 102 Last Action: HELD on 06/08/181527 by MARCIA MCCLURE MD Scheduled PRN Furosemide (Furosemide) 40 Mg Tablet, 40 MG PO PRN DAILY PRN for SEE COMMENTS for 30 Days, #30 Prescribed by: LESLIE NEVAREZ MD on 06/14/18 1119 Discontinued Medications Donepezil Hcl (Aricept) 10 Mg Tablet, 10 MG PO HS, (Reported) Entered as Reported by: DILLON LOPEZ on 01/23/181950 Last Action: Reviewed on 06/08/18 1204 by IDA VIERA Levetiracetam (Levetiracetam) 500 Mg Tablet, 2,000 MG PO BID for SEIZURES, ( Reported) Discontinued Reason: Prescription changed Entered as Reported by: Leti Chapman on 11/15/13 0853 Last Action: HELD on 06/08/181527 by MARCIA MCCLURE MD Lisinopril (Lisinopril) 20 Mg Tablet, 10 MG PO DAILY for HYPERTENSION, SEE COMMENTS, (Reported) Discontinued Reason: Prescription changed Entered as Reported by: MARK PHAN RN on 01/12/141527 LESLIE NEVAREZ MD Jun 14, 2018 11:32
[2018-06-14] MEDS ORDERED: levETIRAcetam 500 MG TABLET PO SCH (21:00)
== END 2018-06-14 14:00 | disposition home health service (06) | DRG 208 ==
LOC: ER 08:26 → 1 WEST ICU 09:50 → 2 NORTH 06-11 19:30
PROVIDERS: ADMIT Internal Medicine; ATTEND Internal Medicine
PROC: 5A1935Z Respiratory Ventilation, Less than 24 Consecutive Hours (ICD-10-PCS; principal; 2018-06-09)
PROC: 0BH17EZ Insertion of Endotracheal Airway into Trachea, Via Natural or Artificial Opening (ICD-10-PCS; 2018-06-09)
PROC: 4B02XSZ Measurement of Cardiac Pacemaker, External Approach (ICD-10-PCS; 2018-06-09)
PROC: 5A1935Z Respiratory Ventilation, Less than 24 Consecutive Hours (ICD-10-PCS; 2018-06-10)
DX: J96.01 Acute respiratory failure with hypoxia (principal); I21.4 Non-ST elevation (NSTEMI) myocardial infarction; N17.0 Acute kidney failure with tubular necrosis; G93.1 Anoxic brain damage, not elsewhere classified; E87.2 Acidosis; I50.22 Chronic systolic (congestive) heart failure; I42.0 Dilated cardiomyopathy; I13.0 Hypertensive heart and chronic kidney disease with heart failure and stage 1 through stage 4 chronic kidney disease, or unspecified chronic kidney disease; I47.2 Ventricular tachycardia; G40.901 Epilepsy, unspecified, not intractable, with status epilepticus; M19.90 Unspecified osteoarthritis, unspecified site; F41.9 Anxiety disorder, unspecified; F03.90 Unspecified dementia, unspecified severity, without behavioral disturbance, psychotic disturbance, mood disturbance, and anxiety; E78.5 Hyperlipidemia, unspecified; F32.9 Major depressive disorder, single episode, unspecified; E03.9 Hypothyroidism, unspecified; N18.9 Chronic kidney disease, unspecified; E78.00 Pure hypercholesterolemia, unspecified; Z95.810 Presence of automatic (implantable) cardiac defibrillator
CPT/HCPCS: 31500; 36415; 36600; 51702; 70450; 71045; 78452; 80048; 80053; 80061; 80069; 80307; 81001; 82550; 82805; 82962; 83605; 83735; 84145; 84439; 84443; 84481; 84484; 85025; 85520; 85610; 87040; 87641; 90471; 90756; 93005; 93017; 93306; 94002; 94003; 94640; 94760; 95816; 96365; 96367; 96374; 96375; 96376; 99291; A9500; G0480; J0282; J0330; J1630; J1644; J1650; J1953; J2250; J2543; J2704; J2785; J3010; J3370; J3475; J3490; J7030; J7040; J7042; J7620; Q2009; 92526; 92610; 97116; 97535; G0479; Q2035

== ENCOUNTER 2018-10-18 11:23 | Emergency (ER) | payer MEDICARE ==
[~2018-10-18] VITALS: Ht 175.3 cm; Wt 71.2 kg
[~2018-10-18 11:23] MED LIST changes: +CARV6.2511 PO; -CARV6.252 PO; +LEVE10007 PO; +VITA150T PO
[2018-10-18 11:25] VITALS: BP 128/70
--- NOTE | 2018-10-18 11:32 | PHYS DOC ---
Past Medical History Past Medical History: CHF, Dementia, Depression, High Cholesterol, Heart Disease, Hypertension, Seizure Additional Past Medical Histor: epilepsy, cardiomyopathy, PM Past Surgical History: Cholecystectomy, Pacemaker Alcohol Use: Occasionally Drug Use: None Adult General HPI HPI Patient is a 72 year old male was brought in here by EMS for evaluation of seizure disorder. Patient was found on the floor in the bathroom facedown actively seizuring. Patient has history of seizure disorder, on unknown type of seizure medication. EMS gave him 5 mg versus and the seizure stopped. Patient has history of seizure disorder, has not taken his seizure medications this morning yet. Patient is on VIMPAT 100 MG BID FOR 6 WEEKS NOW. He is also on 1500 mg keppra bid. Review of Systems Review of Systems Constitutional: Denies fever or chills [] Eyes: Denies change in visual acuity, redness, or eye pain [] HENT: Denies nasal congestion or sore throat [] Respiratory: Denies cough or shortness of breath [] Cardiovascular: No additional information not addressed in HPI [] GI: Denies abdominal pain, nausea, vomiting, bloody stools or diarrhea [] : Denies dysuria or hematuria [] Musculoskeletal: Denies back pain or joint pain [] Integument:SKIN CONTUSION ON FACE. Neurologic: POSITIVE FOR headache,SEIZURE, NO focal weakness or sensory changes [] Endocrine: Denies polyuria or polydipsia [] All other systems were reviewed and found to be within normal limits, except as documented in this note. Current Medications Current Medications Current Medications Medications (Trade) Dose Ordered Sig/Mariah Start Time Stop Time Status Last Admin Dose Admin Lacosamide (Vimpat) 100 mg 1X STAT 10/18/18 13:36 10/18/18 13:38 DC 10/18/18 14:34 100 MG Levetiracetam 1000 mg/Dextrose 110 ml @ 440 mls/hr 1X ONCE 10/18/18 13:45 10/18/18 13:59 DC 10/18/18 14:34 440 MLS/HR Allergies Allergies Allergies Coded Allergies Type Severity Reaction Last Updated Verified No Known Drug Allergies 08/28/14 No Physical Exam Physical Exam Constitutional: Well developed, well nourished, no acute distress, non-toxic appearance. [] HENT: Normocephalic, SUPERFICIAL SKIN CONTUSION ON FOREHEAD AND FACE, bilateral external ears normal, oropharynx moist, no oral exudates, nose normal. [] Eyes: PERRLA, EOMI, conjunctiva normal, no discharge. [] Neck: Normal range of motion, no tenderness, supple, no stridor. [] Cardiovascular:Heart rate regular rhythm, no murmur [] Lungs & Thorax: Bilateral breath sounds clear to auscultation [] Abdomen: Bowel sounds normal, soft, no tenderness, no masses, no pulsatile masses. [] Skin: Warm, SKIN ABRASION ON FACE, FOREHEAD. Back: No tenderness, no CVA tenderness. [] Extremities: No tenderness, no cyanosis, no clubbing, ROM intact, no edema. [] Neurologic: PATIENT WAS IN POSTICTAL STAGE, CONFUSED. OBSERVED TO MOVE ALL EXTREMITIES. Psychologic: Affect normal, judgement normal, mood normal. [] Current Patient Data Vital Signs Vital Signs Date Time Temp Pulse Resp B/P (MAP) Pulse Ox O2 Delivery O2 Flow Rate FiO2 10/18/18 15:30 64 20 100 10/18/18 11:25 98.1 128/70 (89) Room Air 98.1 Lab Values Laboratory Tests Test 10/18/18 11:25 White Blood Count 4.1 x10^3/uL (4.0-11.0) Red Blood Count 4.04 x10^6/uL (4.30-5.70) L Hemoglobin 13.5 g/dL (13.0-17.5) Hematocrit 40.3 % (39.0-53.0) Mean Corpuscular Volume 100 fL (79-100) Mean Corpuscular Hemoglobin 34 pg (25-35) Mean Corpuscular Hemoglobin Concent 34 g/dL (31-37) Red Cell Distribution Width 13.6 % (11.5-14.5) Platelet Count 176 x10^3/uL (140-400) Neutrophils (%) (Auto) 63 % (31-73) Lymphocytes (%) (Auto) 21 % (24-48) L Monocytes (%) (Auto) 10 % (0-9) H Eosinophils (%) (Auto) 4 % (0-3) H Basophils (%) (Auto) 1 % (0-3) Neutrophils # (Auto) 2.6 x10^3uL (1.8-7.7) Lymphocytes # (Auto) 0.9 x10^3/uL (1.0-4.8) L Monocytes # (Auto) 0.4 x10^3/uL (0.0-1.1) Eosinophils # (Auto) 0.2 x10^3/uL (0.0-0.7) Basophils # (Auto) 0.0 x10^3/uL (0.0-0.2) Prothrombin Time 13.3 SEC (11.7-14.0) Prothrombin Time INR 1.0 (0.8-1.1) PTT 24 SEC (24-38) Sodium Level 137 mmol/L (136-145) Potassium Level 4.6 mmol/L (3.5-5.1) Chloride Level 100 mmol/L (98-107) Carbon Dioxide Level 21 mmol/L (21-32) Anion Gap 16 (6-14) H Blood Urea Nitrogen 25 mg/dL (8-26) Creatinine 1.5 mg/dL (0.7-1.3) H Estimated GFR (Cockcroft-Gault) 46.3 BUN/Creatinine Ratio 17 (6-20) Glucose Level 137 mg/dL (70-99) H Calcium Level 9.4 mg/dL (8.5-10.1) Total Bilirubin 0.8 mg/dL (0.2-1.0) Aspartate Amino Transferase (AST) 44 U/L (15-37) H Alanine Aminotransferase (ALT) 35 U/L (16-63) Alkaline Phosphatase 77 U/L (46-116) Creatine Kinase 267 U/L (39-308) Creatine Kinase MB (Mass) 3.0 ng/mL (0.0-3.6) Creatine Kinase MB Relative Index 1.1 % (0-4) Troponin I Quantitative < 0.017 ng/mL (0.000-0.055) Total Protein 7.7 g/dL (6.4-8.2) Albumin 3.6 g/dL (3.4-5.0) Albumin/Globulin Ratio 0.9 (1.0-1.7) L Laboratory Tests 10/18/18 11:25 Laboratory Tests 10/18/18 11:25 EKG EKG EKG was read by this physician at 11:25 am, SINUS RHYTHM, RATE OF 86 BPM, NO STEMI.[] Radiology/Procedures Radiology/Procedures [][facility] [address] [place] [address] IMAGING REPORT Signed PATIENT: BARON GONZALEZ ACCOUNT: [id number] : 1945 LOCATION: ER AGE: 72 SEX: M EXAM STATUS: REG ER ORD. PHYSICIAN: CAROLINE FIELD DO REASON: SEIZURE, FELL DOWN, HEAD INJURY, FACIAL INJURY, AMS PROCEDURE: CT HEAD AND CERVICAL SPINE WO CT HEAD AND CERVICAL SPINE WO, CT MAXILLOFACIAL WO CONTRAST Indication: SEIZURE, FELL DOWN, HEAD INJURY, FACIAL INJURY, AMS
PREVIOUS Exposure: One or more of the following individualized dose reduction techniques were utilized for this examination: 1. Automated exposure control 2. Adjustment of the mA and/or kV according to patient size 3. Use of iterative reconstruction technique. Comparison: None are available. TECHNIQUE: Standard noncontrast imaging. Head: Comparison with June 08, 2018. Density within the right chata is unchanged. No acute intracranial hemorrhage, mass effect, midline shift or abnormal extra-axial fluid collection. Mild prominence of ventricles and sulci compatible with atrophy. Low-density in the white matter bilaterally, a nonspecific finding, but which is commonly due to chronic small vessel ischemic disease in a patient of this age. Orbits appear unremarkable. No large scalp hematoma. Partially visualized sinuses are demonstrated minimal left maxillary sinus mucosal thickening. No evidence of a depressed skull fracture, although a point of tenderness or impact is not known. IMPRESSION: 1. Small dense or calcified lesion of the right chata is stable. 2. No acute intracranial hemorrhage or mass effect. Cervical spine Ring of C1 is intact. Cervico-occipital junction is intact. C1 and C2 appear grossly symmetric. There has been fusion of C5 and C6. No definite acute fracture or subluxation. Mild anterior wedging of T1 is likely chronic. No acute cortical offset is seen. There is multilevel degenerative spondylosis with oiww-tb-smjdewbc spinal stenosis and moderate to severe neural foraminal stenosis at multiple levels. Facet joint degenerative changes without locked or perched percent joint. Lung apices appear grossly clear. No evidence of prevertebral soft tissue swelling or hematoma. IMPRESSION: Degenerative spondylosis with stenosis. No definite acute fracture or subluxation. Facial bones Minimal mucosal thickening left maxillary sinus. Sphenoid sinus demonstrates minimal mucosal thickening. Minimal ethmoid sinus mucosal thickening. No fluid levels are identified in the paranasal sinuses. No evidence of displaced nasal bone fracture. Orbital floors are intact. The mastoids appear grossly clear. No evidence of an acute fracture. Temporomandibular joints are intact. IMPRESSION: No evidence of acute fracture. Electronically signed by: Drew Nuñez MD (10/18/2018 12:57 PM) [facility] DICTATED and SIGNED BY: DREW NUÑEZ MD DATE: 10/18/18 1246 [facility] [address] [place] [address] IMAGING REPORT Signed PATIENT: BARON GONZALEZ ACCOUNT: [id number] : 1945 LOCATION: ER AGE: 72 SEX: M EXAM STATUS: REG ER ORD. PHYSICIAN: CAROLINE FIELD DO REASON: SEIZURE, FELL DOWN, HEAD INJURY, FACIAL INJURY, AMS PROCEDURE: CT MAXILLOFACIAL WO CONTRAST CT HEAD AND CERVICAL SPINE WO, CT MAXILLOFACIAL WO CONTRAST Indication: SEIZURE, FELL DOWN, HEAD INJURY, FACIAL INJURY, AMS
PREVIOUS Exposure: One or more of the following individualized dose reduction techniques were utilized for this examination: 1. Automated exposure control 2. Adjustment of the mA and/or kV according to patient size 3. Use of iterative reconstruction technique. Comparison: None are available. TECHNIQUE: Standard noncontrast imaging. Head: Comparison with June 08, 2018. Density within the right chata is unchanged. No acute intracranial hemorrhage, mass effect, midline shift or abnormal extra-axial fluid collection. Mild prominence of ventricles and sulci compatible with atrophy. Low-density in the white matter bilaterally, a nonspecific finding, but which is commonly due to chronic small vessel ischemic disease in a patient of this age. Orbits appear unremarkable. No large scalp hematoma. Partially visualized sinuses are demonstrated minimal left maxillary sinus mucosal thickening. No evidence of a depressed skull fracture, although a point of tenderness or impact is not known. IMPRESSION: 1. Small dense or calcified lesion of the right chata is stable. 2. No acute intracranial hemorrhage or mass effect. Cervical spine Ring of C1 is intact. Cervico-occipital junction is intact. C1 and C2 appear grossly symmetric. There has been fusion of C5 and C6. No definite acute fracture or subluxation. Mild anterior wedging of T1 is likely chronic. No acute cortical offset is seen. There is multilevel degenerative spondylosis with [id number]-[id number] spinal stenosis and moderate to severe neural foraminal stenosis at multiple levels. Facet joint degenerative changes without locked or perched percent joint. Lung apices appear grossly clear. No evidence of prevertebral soft tissue swelling or hematoma. IMPRESSION: Degenerative spondylosis with stenosis. No definite acute fracture or subluxation. Facial bones Minimal mucosal thickening left maxillary sinus. Sphenoid sinus demonstrates minimal mucosal thickening. Minimal ethmoid sinus mucosal thickening. No fluid levels are identified in the paranasal sinuses. No evidence of displaced nasal bone fracture. Orbital floors are intact. The mastoids appear grossly clear. No evidence of an acute fracture. Temporomandibular joints are intact. IMPRESSION: No evidence of acute fracture. Electronically signed by: Drew Nuñez MD (10/18/2018 12:57 PM) [facility] DICTATED and SIGNED BY: DREW NUÑEZ MD DATE: 10/18/18 1246 Course & Med Decision Making Course & Med Decision Making Pertinent Labs and Imaging studies reviewed. (See chart for details) PATIENT WAS MORE AWAKE, ALERT, ORIENTED, TALKING NORMAL, BACK TO HIS BASELINE AT TIME OF DISCHARGE. Discussed with Dr. 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 Dragon Disclaimer Dragon Disclaimer This electronic medical record was generated, in whole or in part, using a voice recognition dictation system. Departure Departure Impression: Primary Impression: Seizure disorder Additional Impressions: Head injury Facial contusion Disposition: 01 HOME, SELF-CARE Condition: IMPROVED Referrals: UNKNOWN PCP NAME (PCP) LESLY SZYMANSKI MD CALL your doctor in am for further instruction. Patient Instructions: Head Injury, Adult, Seizure, Adult Problem Qualifiers CAROLINE FIELD DO Oct 18, 2018 11:32
[2018-10-18 11:55] LABS: BASO % 1 % (0-3); EOS # 0.2 x10^3/uL (0.0-0.7); EOS % 4 % (0-3); HEMATOCRIT 40.3 % (39.0-53.0); HEMOGLOBIN 13.5 g/dL (13.0-17.5); LYMPH # 0.9 x10^3/uL (1.0-4.8); LYMPH % 21 % (24-48); MEAN CORPUSCULAR HEMOGLOBIN 34 pg (25-35); MEAN CORPUSCULAR HGB CONC 34 g/dL (31-37); MEAN CORPUSCULAR VOLUME 100 fL (79-100); MONO # 0.4 x10^3/uL (0.0-1.1); MONO % 10 % (0-9); NEUT # 2.6 x10^3uL (1.8-7.7); NEUT % 63 % (31-73); PLATELET COUNT 176 x10^3/uL (140-400); RED BLOOD COUNT 4.04 x10^6/uL (4.30-5.70); RED CELL DISTRIBUTION WIDTH 13.6 % (11.5-14.5); WHITE BLOOD COUNT 4.1 x10^3/uL (4.0-11.0)
[2018-10-18 12:08] LABS: CALCIUM 9.4 mg/dL (8.5-10.1); CREATININE 1.5 mg/dL (0.7-1.3); GFR 46.3; POTASSIUM 4.6 mmol/L (3.5-5.1)
[2018-10-18 12:21] LABS: PROTHROMBIN TIME PATIENT 13.3 SEC (11.7-14.0)
[2018-10-18 12:22] LABS: ALBUMIN 3.6 g/dL (3.4-5.0); ALBUMIN/GLOBULIN RATIO 0.9 (1.0-1.7); TOTAL BILIRUBIN 0.8 mg/dL (0.2-1.0); TOTAL PROTEIN 7.7 g/dL (6.4-8.2)
--- NOTE | 2018-10-18 13:00 | RAD ---
CT HEAD AND CERVICAL SPINE WO, CT MAXILLOFACIAL WO CONTRAST Indication: SEIZURE, FELL DOWN, HEAD INJURY, FACIAL INJURY, AMS
PREVIOUS Exposure: One or more of the following individualized dose reduction techniques were utilized for this examination: 1. Automated exposure control 2. Adjustment of the mA and/or kV according to patient size 3. Use of iterative reconstruction technique. Comparison: None are available. TECHNIQUE: Standard noncontrast imaging. Head: Comparison with June 08, 2018. Density within the right chata is unchanged. No acute intracranial hemorrhage, mass effect, midline shift or abnormal extra-axial fluid collection. Mild prominence of ventricles and sulci compatible with atrophy. Low-density in the white matter bilaterally, a nonspecific finding, but which is commonly due to chronic small vessel ischemic disease in a patient of this age. Orbits appear unremarkable. No large scalp hematoma. Partially visualized sinuses are demonstrated minimal left maxillary sinus mucosal thickening. No evidence of a depressed skull fracture, although a point of tenderness or impact is not known. IMPRESSION: 1. Small dense or calcified lesion of the right chata is stable. 2. No acute intracranial hemorrhage or mass effect. Cervical spine Ring of C1 is intact. Cervico-occipital junction is intact. C1 and C2 appear grossly symmetric. There has been fusion of C5 and C6. No definite acute fracture or subluxation. Mild anterior wedging of T1 is likely chronic. No acute cortical offset is seen. There is multilevel degenerative spondylosis with nyoc-qv-ljhufddk spinal stenosis and moderate to severe neural foraminal stenosis at multiple levels. Facet joint degenerative changes without locked or perched percent joint. Lung apices appear grossly clear. No evidence of prevertebral soft tissue swelling or hematoma. IMPRESSION: Degenerative spondylosis with stenosis. No definite acute fracture or subluxation. Facial bones Minimal mucosal thickening left maxillary sinus. Sphenoid sinus demonstrates minimal mucosal thickening. Minimal ethmoid sinus mucosal thickening. No fluid levels are identified in the paranasal sinuses. No evidence of displaced nasal bone fracture. Orbital floors are intact. The mastoids appear grossly clear. No evidence of an acute fracture. Temporomandibular joints are intact. IMPRESSION: No evidence of acute fracture. Electronically signed by: Drew Nuñez MD (10/18/2018 12:57 PM) [facility]
--- NOTE | 2018-10-18 13:02 | RAD ---
CHEST AP ONLY History: ASPIRATION AFTER SEIZURE, PT UNABLE TO COMMUNICATE Comparison: June 08, 2018. Pacemaker defibrillator device is again seen. Low lung volumes bilaterally, more so on the right. There are predominantly interstitial opacities in both lungs, greater on the right. No dense airspace lobar consolidation. No pneumothorax. No pleural effusion. Nonspecific distention of upper abdominal bowel loops. IMPRESSION: Opacities in the right lung may be due to low lung volumes. Mild infiltrate or atelectasis is possible. Consider short-term follow-up radiograph. Electronically signed by: Drew Nuñez MD (10/18/2018 12:59 PM) [facility]
[2018-10-18] MEDS ORDERED: LACOSAMIDE 50 MG TABLET PO STA (13:36)
[2018-10-18] MEDS ORDERED: levETIRAcetam 1,000 MG in IV DEXTROSE 5% 100ML 100 ML IV ONE (13:45)
--- NOTE | 2018-10-19 13:24 | EKG ---
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
--- NOTE | 2018-10-28 15:36 | NUR ---
Late entry made to Medical Record. IV Stop time transcribed from eMAR to IV spreadsheet
== END 2018-10-18 15:38 | disposition home or self-care (01) ==
LOC: ER 11:23
DX: S00.83XA Contusion of other part of head, initial encounter (principal); G40.909 Epilepsy, unspecified, not intractable, without status epilepticus; E78.00 Pure hypercholesterolemia, unspecified; I11.0 Hypertensive heart disease with heart failure; I50.9 Heart failure, unspecified; F32.9 Major depressive disorder, single episode, unspecified; F03.90 Unspecified dementia, unspecified severity, without behavioral disturbance, psychotic disturbance, mood disturbance, and anxiety; Z95.0 Presence of cardiac pacemaker; W18.39XA Other fall on same level, initial encounter; Y93.89 Activity, other specified; Y92.091 Bathroom in other non-institutional residence as the place of occurrence of the external cause; Y99.8 Other external cause status
CPT/HCPCS: 36415; 70450; 70486; 71045; 72125; 80053; 80177; 82553; 84484; 85025; 85610; 85730; 93005; 96365; 99284; J1953

== ENCOUNTER 2019-09-21 18:22 | Emergency (ER) | payer MEDICARE ==
[~2019-09-21] VITALS: Ht 177.8 cm; Wt 75.0 kg
[~2019-09-21 18:22] MED LIST changes: +ALBU2.5V8 NEB; +APIX5TAB PO; +HYDR-2761 PO; +LACO200T PO; +LEVE100020 PO; +LEVO88TA2 PO; +POTA10TA12 PO; +SIMV20TA18 PO; -SIMV20TA3 PO; +SIMV40TA18 PO; -SIMV40TA3 PO; +VITA1TAB3 PO
--- NOTE | 2019-09-21 18:45 | PHYS DOC ---
Past Medical History Past Medical History: CHF, Dementia, Depression, High Cholesterol, Heart Disease, Hypertension, Seizure Additional Past Medical Histor: epilepsy, cardiomyopathy, PM Past Surgical History: Cholecystectomy, Pacemaker Alcohol Use: None Drug Use: None Adult General Chief Complaint Chief Complaint: SHORTNESS OF BREATH [facility] HPI 73-year-old male presents to the emergency department with complaints of shortness of breath with exertion, low blood pressure. Patient has underlying history of hypertension, coronary artery disease, hyperlipidemia, congestive heart failure, permanent pacemaker placement. Patient denies any chest pain on examination. He denies any abdominal pain, nausea, vomiting. Patient does have multiple areas of skin breakdown appreciated to his chest/torso. Exertion makes his symptoms worse, nothing makes his symptoms better. Review of Systems Review of Systems Constitutional: Denies fever or chills [] Respiratory: Denies cough or shortness of breath [] Cardiovascular: No additional information not addressed in HPI [] GI: Denies abdominal pain, nausea, vomiting, bloody stools or diarrhea [] Musculoskeletal: Denies back pain or joint pain [] Integument: rash, edema to bilateral lower ext Neurologic: Denies headache, focal weakness or sensory changes [] All other systems were reviewed and found to be within normal limits, except as documented in this note. Allergies Allergies Allergies Coded Allergies Type Severity Reaction Last Updated Verified No Known Drug Allergies 08/28/14 No Physical Exam Physical Exam Constitutional: Well developed, well nourished, no acute distress, non-toxic appearance. [] HENT: Normocephalic, atraumatic, bilateral external ears normal, oropharynx moist, no oral exudates, nose normal. [] Eyes: PERRLA, EOMI, conjunctiva normal, no discharge. [] Cardiovascular:Heart rate regular rhythm, no murmur [] Lungs & Thorax: Bilateral breath sounds clear to auscultation [] Abdomen: Bowel sounds normal, soft, no tenderness, no masses, no pulsatile masses. [] Skin: Warm, dry, no erythema, no rash. [] Back: No tenderness, no CVA tenderness. [] Extremities: No tenderness, + bilateral lower ext edema. [] Neurologic: Alert and oriented X 3, no focal deficits noted. [] Psychologic: Affect normal, judgement normal, mood normal. [] Current Patient Data Vital Signs Vital Signs Date Time Temp Pulse Resp B/P (MAP) Pulse Ox O2 Delivery O2 Flow Rate FiO2 09/21/19 18:22 97.7 75 18 126/82 (97) 96 Room Air 97.7 Lab Values Laboratory Tests Test 09/21/19 18:38 09/21/19 19:07 09/21/19 19:44 White Blood Count 5.2 x10^3/uL (4.0-11.0) Red Blood Count 4.04 x10^6/uL (4.30-5.70) L Hemoglobin 13.6 g/dL (13.0-17.5) Hematocrit 41.7 % (39.0-53.0) Mean Corpuscular Volume 103 fL (79-100) H Mean Corpuscular Hemoglobin 34 pg (25-35) Mean Corpuscular Hemoglobin Concent 33 g/dL (31-37) Red Cell Distribution Width 17.9 % (11.5-14.5) H Platelet Count 155 x10^3/uL (140-400) Neutrophils (%) (Auto) 70 % (31-73) Lymphocytes (%) (Auto) 19 % (24-48) L Monocytes (%) (Auto) 8 % (0-9) Eosinophils (%) (Auto) 3 % (0-3) Basophils (%) (Auto) 1 % (0-3) Neutrophils # (Auto) 3.6 x10^3/uL (1.8-7.7) Lymphocytes # (Auto) 1.0 x10^3/uL (1.0-4.8) Monocytes # (Auto) 0.4 x10^3/uL (0.0-1.1) Eosinophils # (Auto) 0.1 x10^3/uL (0.0-0.7) Basophils # (Auto) 0.0 x10^3/uL (0.0-0.2) D-Dimer (Priya) 7.35 ug/mlFEU (0.00-0.50) H Sodium Level 142 mmol/L (136-145) Potassium Level 4.3 mmol/L (3.5-5.1) Chloride Level 102 mmol/L (98-107) Carbon Dioxide Level 31 mmol/L (21-32) Anion Gap 9 (6-14) Blood Urea Nitrogen 45 mg/dL (8-26) H Creatinine 1.6 mg/dL (0.7-1.3) H Estimated GFR (Cockcroft-Gault) 42.8 BUN/Creatinine Ratio 28 (6-20) H Glucose Level 80 mg/dL (70-99) Lactic Acid Level 2.7 mmol/L (0.4-2.0) H Calcium Level 8.8 mg/dL (8.5-10.1) Total Bilirubin 1.2 mg/dL (0.2-1.0) H Aspartate Amino Transferase (AST) 36 U/L (15-37) Alanine Aminotransferase (ALT) 39 U/L (16-63) Alkaline Phosphatase 123 U/L (46-116) H Troponin I Quantitative 0.031 ng/mL (0.000-0.055) JZ-Gtc-B-Type Natriuretic Peptide 11235 pg/mL (0-124) H Total Protein 6.1 g/dL (6.4-8.2) L Albumin 2.8 g/dL (3.4-5.0) L Albumin/Globulin Ratio 0.8 (1.0-1.7) L Influenza Type A Antigen Negative (NEGATIVE) Influenza Type B Antigen Negative (NEGATIVE) Urine Collection Type Unknown Urine Color Madiha Urine Clarity Clear Urine pH 5.0 Urine Specific [place] 1.020 Urine Protein Negative mg/dL (NEG-TRACE) Urine Glucose (UA) Negative mg/dL (NEG) Urine Ketones (Stick) Negative mg/dL (NEG) Urine Blood Large (NEG) Urine Nitrite Negative (NEG) Urine Bilirubin Negative (NEG) Urine Urobilinogen Dipstick 1.0 mg/dL (0.2 mg/dL) Urine Leukocyte Esterase Small (NEG) Urine RBC 20-40 /HPF (0-2) Urine WBC 5-10 /HPF (0-4) Urine Squamous Epithelial Cells Occ /LPF Urine Bacteria 0 /HPF (0-FEW) Urine Hyaline Casts Few /HPF Laboratory Tests 09/21/19 18:38 Laboratory Tests 09/21/19 18:38 EKG EKG EKG reveals normal sinus rhythm, no STEMI, left axis deviation, heart rate in the 80s, interpretation time 1835[] Radiology/Procedures Radiology/Procedures [facility] [address] [place] [address] IMAGING REPORT Signed PATIENT: BARON GONZALEZ ACCOUNT: [id number] : 1945 LOCATION: ER AGE: 73 SEX: M EXAM STATUS: PRE ER ORD. PHYSICIAN: EKATERINA LOMELI MD REASON: shortness of breath PROCEDURE: PORTABLE CHEST 1V PORTABLE CHEST 1V History: Shortness of breath Comparison: August 23, 2019 Findings: Cardiomegaly. No consolidation. Possible small left pleural effusion. No pneumothorax. Postop changes lower cervical spine. Left-sided pacemaker/ICD. Impression: 1. Cardiomegaly, unchanged. 2. Possible small left pleural effusion. Electronically signed by: Harjinder Green DO (09/21/2019 7:16 PM) [facility] DICTATED and SIGNED BY: HARJINDER GREEN DO DATE: 09/21/191915 [] Course & Med Decision Making Course & Med Decision Making Pertinent Labs and Imaging studies reviewed. (See chart for details) []73-year-old male presents to the emergency department with complaints of shortness of breath with exertion, low blood pressure. Patient has underlying history of hypertension, coronary artery disease, hyperlipidemia, congestive heart failure, permanent pacemaker placement. Patient denies any chest pain on examination. He denies any abdominal pain, nausea, vomiting. Patient does have multiple areas of skin breakdown appreciated to his chest/torso. Exertion makes his symptoms worse, nothing makes his symptoms better. Laboratory values and imaging reviewed Chest x-ray without evidence of acute cardiopulmonary process. BNP is elevated 15,000 baseline appears around 12,000 no evidence of overt congestive heart failure appreciated. Troponin 0.031. Urinalysis is negative no acute process. Lactic acid is positive at 2.7 however no signs of infection appreciated on examination, given negative urine, negative chest x-ray Labs were reviewed from previous admission without significant change Recommend dc home Return precautions provided, discussed with patient Sj Disclaimer Dragon Disclaimer This electronic medical record was generated, in whole or in part, using a voice recognition dictation system. Departure Departure Impression: Primary Impression: Chronic congestive heart failure Additional Impressions: Lactic acidosis Hypertension Disposition: 03 TRANSFER SNF Condition: IMPROVED Referrals: JENNIFER MOSELEY MD (PCP) Patient Instructions: Heart Failure, [id number] Additional Instructions: Recommend follow up with PCP 3 - 5 days Return to the ER with worsening symptoms, intractable pain, fever, altered mental status Tylenol/Motrin as needed for pain Chest xray without acute findings Labs reviewed without evidence of infection Problem Qualifiers Primary Impression: Chronic congestive heart failure Heart failure type: systolic Qualified Codes: I50.22 - Chronic systolic (congestive) heart failure Additional Impressions: Hypertension Hypertension type: essential hypertension Qualified Codes: I10 - Essential (primary) hypertension EKATERINA LOMELI MD Sep 21, 2019 18:45
[2019-09-21 18:52] LABS: BASO % 1 % (0-3); EOS # 0.1 x10^3/uL (0.0-0.7); EOS % 3 % (0-3); HEMATOCRIT 41.7 % (39.0-53.0); HEMOGLOBIN 13.6 g/dL (13.0-17.5); LYMPH % 19 % (24-48); MEAN CORPUSCULAR HEMOGLOBIN 34 pg (25-35); MEAN CORPUSCULAR HGB CONC 33 g/dL (31-37); MEAN CORPUSCULAR VOLUME 103 fL (79-100); MONO # 0.4 x10^3/uL (0.0-1.1); MONO % 8 % (0-9); NEUT # 3.6 x10^3/uL (1.8-7.7); NEUT % 70 % (31-73); PLATELET COUNT 155 x10^3/uL (140-400); RED BLOOD COUNT 4.04 x10^6/uL (4.30-5.70); RED CELL DISTRIBUTION WIDTH 17.9 % (11.5-14.5); WHITE BLOOD COUNT 5.2 x10^3/uL (4.0-11.0)
[2019-09-21 18:59] LABS: CALCIUM 8.8 mg/dL (8.5-10.1); CREATININE 1.6 mg/dL (0.7-1.3); GFR 42.8; POTASSIUM 4.3 mmol/L (3.5-5.1)
[2019-09-21 19:05] LABS: ALBUMIN 2.8 g/dL (3.4-5.0); ALBUMIN/GLOBULIN RATIO 0.8 (1.0-1.7); TOTAL BILIRUBIN 1.2 mg/dL (0.2-1.0); TOTAL PROTEIN 6.1 g/dL (6.4-8.2)
--- NOTE | 2019-09-21 19:19 | RAD ---
PORTABLE CHEST 1V History: Shortness of breath Comparison: August 23, 2019 Findings: Cardiomegaly. No consolidation. Possible small left pleural effusion. No pneumothorax. Postop changes lower cervical spine. Left-sided pacemaker/ICD. Impression: 1. Cardiomegaly, unchanged. 2. Possible small left pleural effusion. Electronically signed by: Harjinder Green DO (09/21/2019 7:16 PM) [id number]
[2019-09-21 19:35] LABS: INFLUENZA A PATIENT NEGATIVE (NEGATIVE); INFLUENZA B PATIENT NEGATIVE (NEGATIVE)
[2019-09-21 19:52] LABS: BILIRUBIN,URINE NEGATIVE (NEG); CLARITY,URINE CLEAR; COLOR,URINE AMBER; NITRITE,URINE NEGATIVE (NEG); PROTEIN,URINE NEGATIVE (NEG-TRACE)
[2019-09-21 19:59] LABS: BACTERIA,URINE 0 /HPF (0-FEW); RBC,URINE 20-40 /HPF (0-2); SQUAMOUS EPITHELIAL CELL,UR OCC /LPF
[2019-09-21 20:00] LABS: HYALINE CASTS, URINE FEW /HPF
[2019-09-21 20:27] VITALS: BP 109/88
--- NOTE | 2019-09-22 07:15 | EKG ---
[facility] [address] [place] [address] Test Date: 2019-09-21 Test Time: 18:35:31 Pat Name: BARON GONZALEZ Department: Room: Gender: M Tong Setter: : 1945 Requested By: EKATERINA LOMELI Order Number: [id number] Reading MD: Measurements Intervals Imogene Rate: 66 P: 49 IN: 216 QRS: -46 QRSD: 122 T: 153 QT: 442 QTc: 465 Interpretive Statements SINUS RHYTHM ATRIAL PREMATURE COMPLEX(ES) ABNORMAL LEFT AXIS DEVIATION LOW LIMB LEAD VOLTAGE LVH WITH REPOLARIZATION ABNORMALITY QRS(T) CONTOUR ABNORMALITY CONSIDER ANTEROSEPTAL MYOCARDIAL DAMAGE CONSISTENT WITH INFERIOR INFARCT PROBABLY OLD ABNORMAL ECG RI6.01 No previous ECG available for comparison
== END 2019-09-21 21:44 ==
LOC: ER 18:22
DX: I11.0 Hypertensive heart disease with heart failure (principal); I50.22 Chronic systolic (congestive) heart failure; E87.2 Acidosis; F32.9 Major depressive disorder, single episode, unspecified; F03.90 Unspecified dementia, unspecified severity, without behavioral disturbance, psychotic disturbance, mood disturbance, and anxiety; E78.00 Pure hypercholesterolemia, unspecified; G40.909 Epilepsy, unspecified, not intractable, without status epilepticus; Z90.49 Acquired absence of other specified parts of digestive tract; Z95.0 Presence of cardiac pacemaker
CPT/HCPCS: 36415; 71045; 80053; 81001; 83605; 83880; 84484; 85025; 85379; 87086; 87804; 93005; 99285-25